=== PATIENT | female | born 1930 ===

== ENCOUNTER 2016-07-24 19:43 | Inpatient (IN) | payer OTHER ==
[~2016-07-24] VITALS: Ht 144.8 cm; Wt 51.3 kg
[2016-07-24 20:14] VITALS: BP 91/29
[2016-07-24 23:15] VITALS: BP 95/42
[2016-07-25] MEDS ORDERED: FURO20TA3 PO (01:16)
[2016-07-25] MEDS ORDERED: NYST1000 PO (01:16)
[2016-07-25] MEDS ORDERED: CLOT15CR4 TP (01:16)
[2016-07-25] MEDS ORDERED: ESCI10TA PO (01:16)
[2016-07-25] MEDS ORDERED: HYDR-2666 PO (01:16)
[2016-07-25] MEDS ORDERED: GABA-585 PO (01:16)
[2016-07-25] MEDS ORDERED: ACET325T9 PO (01:16)
[2016-07-25 03:14] VITALS: BP 98/49
[2016-07-25 07:00] VITALS: BP 93/47
[2016-07-25] MEDS ORDERED: IV NORMAL SALINE 1000ML BAG 1,000 ML IV ONE (08:45)
[2016-07-25] MEDS ORDERED: PIPERACILLIN/TAZOBACTAM 2.25 GM in IV NORMAL SALINE 50ML 50 ML IV ONE (08:45)
[2016-07-25] MEDS ORDERED: HYDROCODONE/APAP 5/325MG TABLET. PO PRN (08:45)
[2016-07-25] MEDS ORDERED: ACETAMINOPHEN 325 MG TABLET. PO PRN (08:45)
[2016-07-25] MEDS ORDERED: VANCOMYCIN PER PHARMACY MC PRN (09:00)
[2016-07-25] MEDS: CLOTRIMAZOLE 1% TOPICAL CREAM 15GM TUBE. TP SCH ×2 (09:00→20:56)
--- NOTE | 2016-07-25 09:00 | PDOC1 ---
History and Physical Date of Admission Date of Admission DATE: 07/25/16 TIME: 08:46 Identification/Chief Complaint Chief Complaint cellulitis Source Source: Caregiver, Chart review, Patient History of Present Illness History of Present Illness transfer from [place] for celllulitis to left upper chest and arm Niece has been present and assists with history. Pt lives at [facility], last 7 years painful redness to left arm and left chest, reports better this AM, Had prior HD, left arm AV fistula, has not been used in a long time. Vancomycin 1 gram IV given before transfer, Past Medical History Cardiovascular: CAD, CHF, HTN Pulmonary: Asthma, Bronchitis, COPD GI: GERD Heme/Onc: No pertinent hx Hepatobiliary: No pertinent hx Psych: Depression Musculoskeletal: low back pain ENT: No pertinent hx Renal/: Chronic renal insuff, Acute renal failure Endocrine: Diabetes Past Surgical History Past Surgical History: No pertinent history Family History Family History: No Significant Social History Smoke: Quit ALCOHOL: none Drugs: None Current Medications Current Medications Current Medications Acetaminophen (Tylenol) 325 mg PRN Q4HRS PRN PO pain; Start 07/25/16 at 08:45; Status UNV Clotrimazole (Lotrimin) 1 kizzy BID TP ; Start 07/25/16 at 09:00; Status UNV Escitalopram Oxalate (Lexapro) 10 mg DAILY PO ; Start 07/25/16 at 09:00; Status UNV Gabapentin (Neurontin) 100 mg TID PO ; Start 07/25/16 at 09:00; Status UNV Acetaminophen/ Hydrocodone Bitart (Lortab 5/325) 1 tab TID PRN PO PAIN; Start 07/25/16 at 08:45; Status UNV Nystatin 5 ml 5 ml QID PO ; Start 07/25/16 at 09:00; Status UNV Piperacillin Sod/ Tazobactam Sod 2.25 gm/Sodium Chloride 50 ml @ 100 mls/hr Q6HRS IV ; Start 07/25/16 at 12:00 Piperacillin Sod/ Tazobactam Sod/ Sodium Chloride (Zosyn/Iv Sodium Chloride 0.9 % 50ml) 50 ml @ 100 mls/hr 1X ONCE IV ; Start 07/25/16 at 08:45; Stop at 09:14 Active Scripts Active Reported Nystatin 100,000 Unit/1 Ml Oral.susp 5 Ml PO QID Hydrocodone-Apap 5-325 (Hydrocodone Bit/Acetaminophen) 1 Each Tablet 1 Tab PO TID PRN Clotrimazole 15 Gm Cream..g. 1 Kizzy TP BID Escitalopram Oxalate 10 Mg Tablet 1 Tab PO DAILY Gabapentin 100 Mg Capsule 100 Mg PO TID Furosemide 20 Mg Tablet 1 Tab PO DAILY Tylenol (Acetaminophen) 325 Mg Tablet 1 Tab PO PRN Q4HRS Allergies Allergies: Coded Allergies: No Known Drug Allergies (Unverified , 07/25/16) ROS General: YES: Chills, Fatigue, Malaise PSYCHOLOGICAL ROS: No: Anxiety, Behavioral Disorder, Concentration difficultie , Decreased libido, Depression, Disorientation, Hallucinations, Hostility, Irritablity, Memory difficulties, Mood Swings, Obsessive thoughts, Other, Physical abuse, Sexual abuse, Sleep disturbances, Suicidal ideation Eyes: No Blurry vision, No Decreased vision, No Double vision, No Dry eyes, No Excessive tearing, No Eye Pain, No Itchy Eyes, No Loss of vision, No Other, No Photophobia, No Scotomata, No Uses contacts, No Uses glasses HEENT: No: Epistaxis, Heacaches, Hearing change, Nasal congestion, Nasal discharge, Oral lesions, Other, Sinus pain, Sneezing, Snoring, Sore Throat, Tinnitus, Vertigo, Visual Changes, Vocal changes Respiratory: No: Cough, Hemoptysis, Orthopnea, Other, Pleuritic Pain, SOB with excertion, Shortness of breath, Sputum Changes, Stridor, Tachypnea, Wheezing Cardiovascular: No Chest Pain, No Edema, No Lt Headedness, No Orthopnea, No Other, No Palpitations, No Paroxysmal Noc. Dyspnea Gastrointestinal: Yes Nausea, No Abdominal Pain, No Constipation, No Diarrhea, No Hematochezia, No Melena, No Other, No Vomiting Genitourinary: No , No , No , No , No , No , No , No Discharge, No Dysuria, No Flank Pain, No Frequency, No Hematuria, No Incontinence, No Other, No Pain, No Retention, No Urgency Musculoskeletal: No Gait Disturbance, No Joint Pain, No Joint Stiffness, No Joint Swelling, No Muscle Pain, No Muscular Weakness, No Other, No Pain In:, No Swelling In: Neurological: No Behavorial Changes, No Bowel/Bladder ControlChng, No Confusion , No Dizziness, No Gait Disturbance, No Headaches, No Impaired Coord/balance, No Memory Loss, No Numbness/Tingling, No Other, No Seizures, No Speech Problems , No Tremors, No Visual Changes, No Weakness Skin: Yes Dry Skin, Yes Rash, Yes Skin Lesion Changes, No Acne, No Eczema, No Hair Changes, No Lumps, No Mole Changes, No Mottling, No Nail Changes, No Other, No Pruritus Physical Exam General: Alert, Oriented X3, mild distress HEENT: Atraumatic, EOMI Lungs: Normal air movement, Other (diminished, w/ rales) Heart: S1S2, RRR Abdomen: Normal bowel sounds, Soft Rectal Exam: not examined Extremities: No clubbing, No edema Skin: Other (redness, erythema to left chest wall to left arm, blanchable, ) Neuro: Other (mod good str. communicates well, I cannot understand, translated reasonably by Nerosio) Psych/Mental Status: Mental status NL, Mood NL Vitals Vitals Vital Signs Date Time Temp Pulse Resp B/P Pulse Ox O2 Delivery O2 Flow Rate FiO2 07/25/16 07:00 97.8 63 19 93/47 100 Nasal Cannula 3.0 97.8 Labs Labs WBC 12.8, Hgb 11.4, plt 211 BUN 26, Cr. 2,2m, Ca++ 8.6 Alb 2.9, K 5.0, Na 140, CL 104, C02 26 CRP 21.6 Laboratory Tests Test 07/24/16 21:11 07/25/16 07:48 Glucose (Fingerstick) 110mg/dL (70-99) 80mg/dL (70-99) Laboratory Tests Test 07/24/16 21:11 07/25/16 07:48 Glucose (Fingerstick) 110mg/dL (70-99) 80mg/dL (70-99) VTE Prophylaxis Ordered VTE Prophylaxis Devices: No VTE Pharmacological Prophylaxi: Yes Assessment/Plan Assessment/Plan cellulitis, + SIRS at [facility] ER with Leukocytosis, and T 102 Admit for sepsis ZOsyn given there, cont Q6, 2.25, then Pharm dosing, Cr. 2.2 there, recheck renal fxn now acute on chronic renal faiulre, vasomotor, consult renal IV fluid, stat labs now minimal hypoxia resp failure, respiratory failure, check P CXR now, low 02 documented 89% nebs, ABG 7.42/40/54 - weakness and debility, has lived at [facility] 7 years, family care was almost 10 years before that some mild dementia, communicates very well with Niece who is DPOA and presente for this exam Speech eval for swallow safety admit DNR confirmed VANESSA WARE MD Jul 25, 2016 09:00
[2016-07-25] MEDS: ESCITALOPRAM 10 MG TABLET. PO SCH (09:05)
[2016-07-25] MEDS: GABAPENTIN 100 MG CAPSULE. PO SCH ×3 (09:05→20:55)
[2016-07-25] MEDS: NYSTATIN 100,000 UNITS/ML 5 ML ORAL.SUSP. PO SCH ×4 (09:05→20:55)
[2016-07-25 09:09] LABS: BASO % 0 % (0-3); EOS % 0 % (0-3); HEMATOCRIT 33.7 % (36.0-47.0); HEMOGLOBIN 10.8 g/dL (12.0-15.5); LYMPH # 1.5 x10^3/uL (1.0-4.8); LYMPH % 14 % (24-48); MEAN CORPUSCULAR HEMOGLOBIN 33 pg (25-35); MEAN CORPUSCULAR HGB CONC 32 g/dL (31-37); MEAN CORPUSCULAR VOLUME 103 fL (79-100); MONO % 4 % (0-9); NEUT % 82 % (31-73); PLATELET COUNT 184 x10^3/uL (140-400); RED BLOOD COUNT 3.29 x10^6/uL (3.50-5.40); RED CELL DISTRIBUTION WIDTH 13.7 % (11.5-14.5); WHITE BLOOD COUNT 11.3 x10^3/uL (4.0-11.0)
[2016-07-25] MEDS ORDERED: VANCOMYCIN 1.25 GM in IV NORMAL SALINE 250ML 250 ML IV ONE (09:15)
[2016-07-25 09:33] LABS: CALCIUM 8.4 mg/dL (8.5-10.1); CREATININE 2.2 mg/dL (0.6-1.0); GFR 21.2; POTASSIUM 5.4 mmol/L (3.5-5.1)
[2016-07-25 09:36] LABS: ALBUMIN 2.4 g/dL (3.4-5.0); ALBUMIN/GLOBULIN RATIO 0.6 (1.0-1.7); TOTAL BILIRUBIN 0.5 mg/dL (0.2-1.0); TOTAL PROTEIN 6.5 g/dL (6.4-8.2)
--- NOTE | 2016-07-25 10:43 | PDOC2 ---
CONSULT Date of Consult Date of Consult DATE: 07/25/16 TIME: 10:42 Reason for Consult Reason for Consult: CKD IV/ v Referring Physician Referring Physician: Dr George Identification/Chief Complaint Chief Complaint fevers Problems: Source Source: Chart review, Patient History of Present Illness Reason for Visit: as dictated Past Medical History Cardiovascular: CAD, CHF, HTN Pulmonary: Asthma, Bronchitis, COPD GI: GERD Heme/Onc: No pertinent hx Hepatobiliary: No pertinent hx Psych: Depression Musculoskeletal: low back pain ENT: No pertinent hx Renal/: Chronic renal insuff, Acute renal failure Endocrine: Diabetes Past Surgical History Past Surgical History: No pertinent history Family History Family History: No Significant Social History Quit ALCOHOL: none Drugs: None Lives: Care Home Current Medications Current Medications Current Medications Acetaminophen (Tylenol) 325 mg PRN Q4HRS PRN PO pain; Start 07/25/16 at 08:45 Clotrimazole (Lotrimin) 1 kizzy BID TP Last administered on 07/25/16 09:00; Start 07/25/16 at 09:00 Escitalopram Oxalate (Lexapro) 10 mg DAILY PO Last administered on 07/25/16 09 :05; Start 07/25/16 at 09:00 Gabapentin (Neurontin) 100 mg TID PO Last administered on 07/25/16 09:05; Start 07/25/16 at 09:00 Acetaminophen/ Hydrocodone Bitart (Lortab 5/325) 1 tab PRN TID PRN PO PAIN MILD ; Start 07/25/16 at 08:45 Nystatin 5 ml 5 ml QID PO Last administered on 07/25/16 09:05; Start 07/25/16 at 09:00 Piperacillin Sod/ Tazobactam Sod 2.25 gm/Sodium Chloride 50 ml @ 100 mls/hr Q6HRS IV ; Start 07/25/16 at 12:00 Piperacillin Sod/ Tazobactam Sod 2.25 gm/Sodium Chloride 50 ml @ 100 mls/hr 1X ONCE IV Last administered on 07/25/16 09:06; Start 07/25/16 at 08:45; Stop 07/25/16 at 09:14; Status DC Sodium Chloride (Iv Sodium Chloride 0.9% 1000ml Bag) 1,000 ml @ 100 mls/hr 1X ONCE IV Last administered on 3/24/17at 08:45; Start 07/25/16 at 08:45; Stop at 18:44 Albuterol/ Ipratropium (Duoneb) 3 ml RTQID NEB ; Start 07/25/16 at 12:00 Vancomycin HCl 1 each 1 each PRN DAILY PRN MC SEE COMMENTS; Start 07/25/16 at 09:00 Vancomycin HCl/ Sodium Chloride (Iv Sodium Chloride 0.9% 250ml) 250 ml @ 166.667 mls/hr 1X ONCE IV Last administered on 07/25/16t 10:35; Start at 09:15; Stop 07/25/16 at 10:44 Active Scripts Active Reported Nystatin 100,000 Unit/1 Ml Oral.susp 5 Ml PO QID Hydrocodone-Apap 5-325 (Hydrocodone Bit/Acetaminophen) 1 Each Tablet 1 Tab PO TID PRN Clotrimazole 15 Gm Cream..g. 1 Kizzy TP BID Escitalopram Oxalate 10 Mg Tablet 1 Tab PO DAILY Gabapentin 100 Mg Capsule 100 Mg PO TID Furosemide 20 Mg Tablet 1 Tab PO DAILY Tylenol (Acetaminophen) 325 Mg Tablet 1 Tab PO PRN Q4HRS Allergies Allergies: Coded Allergies: No Known Drug Allergies (Unverified , 07/25/16) ROS Review of System Unable to get from pt. GEN: + Fevers no Chills Physical Exam Physical Exam General Appearance: Awake Alert Oriented x 1-2, ? Some underlying dmeentia In no Distress Eyes: VIsion Unchanged Conjunctiva Normal EN: No EN Drainage Mucous Memb. moist Neck: no JVD min JVP Supple no Thyromegaly CVS: S1 S2 + Murmur No Gallop No Rub no Edema Resp: no Rales no Rhonchi no Acc. Muscle use GI: BAS +ve NO Bruit Non Tender Non Distended : no CVA tenderness; no Suprapubic Tenderness SKIN: no visible petechial Rashes Breast Exam deferred; rash as described over chest wall Mu.Sk: dec ROM age related Muscle Atrophy Heme: Unable to palpate Obvious LAD no Splenomegaly NEURO: not co-operative with neuro exam Psych: ? Depressed no Active hallucination Vital Signs Vital Signs Date Time Temp Pulse Resp B/P Pulse Ox O2 Delivery O2 Flow Rate FiO2 07/25/16 07:00 97.8 63 19 93/47 100 Nasal Cannula 3.0 97.8 Assessment & Plan CKD IV - suspect she is stage V given dimunitive muscle mass. check 24-hr CrCl. Pt not interested in STEAM CONDITIONER OPERATOR. Current FLuid and E-lyte status does not necessitate emergent need for Dialysis. ^K - chronic Problem. May need valtessa / Ch Kayexalate dose as OP for same ( daughter says NH has a problem keeping it down) Anemia: check Iron, start Epogen Transfuse as needed. HypoTN: ? due to febrile illness. IVF as needed. hold Current BP meds HypoAlb - ? FTT due to underlying Uremia Discussed Plan of Care and prognosis etc. at length with family. Agree that she may not be the ideal candidate for STEAM CONDITIONER OPERATOR. Labs Labs Laboratory Tests Test 07/24/16 21:11 07/25/16 07:48 07/25/16 08:50 Glucose (Fingerstick) 110mg/dL (70-99) 80mg/dL (70-99) White Blood Count 11.3x10^3/uL (4.0-11.0) Red Blood Count 3.29x10^6/uL (3.50-5.40) Hemoglobin 10.8g/dL (12.0-15.5) Hematocrit 33.7% (36.0-47.0) Mean Corpuscular Volume 103fL (79-100) Mean Corpuscular Hemoglobin 33pg (25-35) Mean Corpuscular Hemoglobin Concent 32g/dL (31-37) Red Cell Distribution Width 13.7% (11.5-14.5) Platelet Count 184x10^3/uL (140-400) Neutrophils (%) (Auto) 82% (31-73) Lymphocytes (%) (Auto) 14% (24-48) Monocytes (%) (Auto) 4% (0-9) Eosinophils (%) (Auto) 0% (0-3) Basophils (%) (Auto) 0% (0-3) Neutrophils # (Auto) 9.2x10^3uL (1.8-7.7) Lymphocytes # (Auto) 1.5x10^3/uL (1.0-4.8) Monocytes # (Auto) 0.5x10^3/uL (0.0-1.1) Eosinophils # (Auto) 0.0x10^3/uL (0.0-0.7) Basophils # (Auto) 0.0x10^3/uL (0.0-0.2) Sodium Level 144mmol/L (136-145) Potassium Level 5.4mmol/L (3.5-5.1) Chloride Level 110mmol/L (98-107) Carbon Dioxide Level 26mmol/L (21-32) Anion Gap 8 (6-14) Blood Urea Nitrogen 32mg/dL (7-20) Creatinine 2.2mg/dL (0.6-1.0) Estimated GFR (Cockcroft-Gault) 21.2 BUN/Creatinine Ratio 15 (6-20) Glucose Level 104mg/dL (70-99) Calcium Level 8.4mg/dL (8.5-10.1) Total Bilirubin 0.5mg/dL (0.2-1.0) Aspartate Amino Transf (AST/SGOT) 26U/L (15-37) Alanine Aminotransferase (ALT/SGPT) 15U/L (14-59) Alkaline Phosphatase 83U/L (46-116) Total Protein 6.5g/dL (6.4-8.2) Albumin 2.4g/dL (3.4-5.0) Albumin/Globulin Ratio 0.6 (1.0-1.7) Random Vancomycin Level 11.6mcg/mL Laboratory Tests Test 07/24/16 21:11 07/25/16 07:48 07/25/16 08:50 Glucose (Fingerstick) 110mg/dL (70-99) 80mg/dL (70-99) White Blood Count 11.3x10^3/uL (4.0-11.0) Red Blood Count 3.29x10^6/uL (3.50-5.40) Hemoglobin 10.8g/dL (12.0-15.5) Hematocrit 33.7% (36.0-47.0) Mean Corpuscular Volume 103fL (79-100) Mean Corpuscular Hemoglobin 33pg (25-35) Mean Corpuscular Hemoglobin Concent 32g/dL (31-37) Red Cell Distribution Width 13.7% (11.5-14.5) Platelet Count 184x10^3/uL (140-400) Neutrophils (%) (Auto) 82% (31-73) Lymphocytes (%) (Auto) 14% (24-48) Monocytes (%) (Auto) 4% (0-9) Eosinophils (%) (Auto) 0% (0-3) Basophils (%) (Auto) 0% (0-3) Neutrophils # (Auto) 9.2x10^3uL (1.8-7.7) Lymphocytes # (Auto) 1.5x10^3/uL (1.0-4.8) Monocytes # (Auto) 0.5x10^3/uL (0.0-1.1) Eosinophils # (Auto) 0.0x10^3/uL (0.0-0.7) Basophils # (Auto) 0.0x10^3/uL (0.0-0.2) Sodium Level 144mmol/L (136-145) Potassium Level 5.4mmol/L (3.5-5.1) Chloride Level 110mmol/L (98-107) Carbon Dioxide Level 26mmol/L (21-32) Anion Gap 8 (6-14) Blood Urea Nitrogen 32mg/dL (7-20) Creatinine 2.2mg/dL (0.6-1.0) Estimated GFR (Cockcroft-Gault) 21.2 BUN/Creatinine Ratio 15 (6-20) Glucose Level 104mg/dL (70-99) Calcium Level 8.4mg/dL (8.5-10.1) Total Bilirubin 0.5mg/dL (0.2-1.0) Aspartate Amino Transf (AST/SGOT) 26U/L (15-37) Alanine Aminotransferase (ALT/SGPT) 15U/L (14-59) Alkaline Phosphatase 83U/L (46-116) Total Protein 6.5g/dL (6.4-8.2) Albumin 2.4g/dL (3.4-5.0) Albumin/Globulin Ratio 0.6 (1.0-1.7) Random Vancomycin Level 11.6mcg/mL ANI GARCIA MD Jul 25, 2016 10:43
[2016-07-25] MEDS ORDERED: MAGNESIUM SULFATE 2GM 50 ML IV PRN (10:45)
[2016-07-25] MEDS ORDERED: SODIUM POLYSTYRENE SULFONATE 15 GM/60 ML ORAL.SUSP. PO ONE (11:00)
--- NOTE | 2016-07-25 11:04 | RAD ---
Portable chest, 07/25/2016: History: Hypoxia Comparison is made to a study from 07/14/2012. The patient is moderately rotated to the left. The heart is mildly enlarged. There is calcific plaquing of the aorta. The pulmonary vascularity appears congested. There appears to be mild left basilar atelectasis/infiltrate. A known hiatal hernia is probably contributing to this opacity medially. Similar findings were present on the previous exam. No pleural fluid is evident. IMPRESSION: 1. Vascular congestion. 2. Mild left basilar atelectasis/infiltrate.
--- NOTE | 2016-07-25 11:07 | PDOC ---
Infectious Disease Note Vital Sign Vital Signs Vital Signs Date Time Temp Pulse Resp B/P Pulse Ox O2 Delivery O2 Flow Rate FiO2 07/25/16 07:00 97.8 63 19 93/47 100 Nasal Cannula 3.0 97.8 Labs Lab Laboratory Tests Test 07/24/16 21:11 07/25/16 07:48 07/25/16 08:50 07/25/16 10:25 Glucose (Fingerstick) 110mg/dL (70-99) 80mg/dL (70-99) 117mg/dL (70-99) White Blood Count 11.3x10^3/uL (4.0-11.0) Red Blood Count 3.29x10^6/uL (3.50-5.40) Hemoglobin 10.8g/dL (12.0-15.5) Hematocrit 33.7% (36.0-47.0) Mean Corpuscular Volume 103fL (79-100) Mean Corpuscular Hemoglobin 33pg (25-35) Mean Corpuscular Hemoglobin Concent 32g/dL (31-37) Red Cell Distribution Width 13.7% (11.5-14.5) Platelet Count 184x10^3/uL (140-400) Neutrophils (%) (Auto) 82% (31-73) Lymphocytes (%) (Auto) 14% (24-48) Monocytes (%) (Auto) 4% (0-9) Eosinophils (%) (Auto) 0% (0-3) Basophils (%) (Auto) 0% (0-3) Neutrophils # (Auto) 9.2x10^3uL (1.8-7.7) Lymphocytes # (Auto) 1.5x10^3/uL (1.0-4.8) Monocytes # (Auto) 0.5x10^3/uL (0.0-1.1) Eosinophils # (Auto) 0.0x10^3/uL (0.0-0.7) Basophils # (Auto) 0.0x10^3/uL (0.0-0.2) Sodium Level 144mmol/L (136-145) Potassium Level 5.4mmol/L (3.5-5.1) Chloride Level 110mmol/L (98-107) Carbon Dioxide Level 26mmol/L (21-32) Anion Gap 8 (6-14) Blood Urea Nitrogen 32mg/dL (7-20) Creatinine 2.2mg/dL (0.6-1.0) Estimated GFR (Cockcroft-Gault) 21.2 BUN/Creatinine Ratio 15 (6-20) Glucose Level 104mg/dL (70-99) Calcium Level 8.4mg/dL (8.5-10.1) Total Bilirubin 0.5mg/dL (0.2-1.0) Aspartate Amino Transf (AST/SGOT) 26U/L (15-37) Alanine Aminotransferase (ALT/SGPT) 15U/L (14-59) Alkaline Phosphatase 83U/L (46-116) Total Protein 6.5g/dL (6.4-8.2) Albumin 2.4g/dL (3.4-5.0) Albumin/Globulin Ratio 0.6 (1.0-1.7) Random Vancomycin Level 11.6mcg/mL Objective Assessment Fever Leukocytosis Chest wall cellulitis Yeast infection under breast Renal failure Debility and self care problem Plan Plan of Care cont zosyn d/c vanc add diflucan supportive care d/w family ROCAEL GARCIA MD Jul 25, 2016 11:07
[2016-07-25 11:10] VITALS: BP 104/37
[2016-07-25] MEDS: IPRATRPIUM/ALBUTEROL 0.5/2.5MG 3 ML NEBU. NEB SCH ×3 (11:21→20:21)
[2016-07-25 12:06] LABS: % SAT IRON 28 % (15-34); IRON,SERUM 38 ug/dL (50-170)
[2016-07-25] MEDS: FLUCONAZOLE 100 MG TABLET. PO SCH (12:18)
[2016-07-25] MEDS: PIPERACILLIN/TAZOBACTAM 2.25 GM in IV NORMAL SALINE 50ML 50 ML IV SCH ×3 (12:18→23:58)
[2016-07-25] MEDS ORDERED: AA 2.75%/CALCIUM/LYTES/D5W 2,000 ML IV SCH (14:30)
[2016-07-25 14:37] VITALS: BP 128/48
--- NOTE | 2016-07-25 14:50 | PDOC2 ---
GI CONSULT Reason For Consult: PEG HPI: HPI: History from chart, RN, COMPUTER FORENSICS EXAMINER, niece Jhoana who is DPOA, and pt (minimal history, h/ o dementia/aphasia). 85 y/o transferred from [facility] for cellulitis (right arm, breast), fevers, concern for sepsis. Followed by ID on IV atbx, also nephrology for CKD stage IV-V; 24 hour CrCl in process, pt not interested/not ideal candidate for USER EXPERIENCE LEAD. H/o dysphagia, coughing w/ eating, no teeth. Niece reports pt previously signed a consent at [facility] to continue eating a regular diet after she refused pureed foods. Around the same time was made DNR. Due to coughing w/ swallowing liquids noted by staff here, COMPUTER FORENSICS EXAMINER was consulted w/ bedside swallow eval c/w oropharyngeal dysphagia. Was made NPO w/ orders for PPN to start this afternoon. GI consulted re: PEG tube. H/o heartburn treated PRN at [facility]. Denies odynophagia, constipation, diarrhea, hematochezia, melena. Some abd discomfort today. No previous EGD or colonoscopy. No abd surgeries. Discussed PEG w/ pt, niece. Pt first indicates she is not interested in this. Niece indicates they have previously discussed to proceed w/ PEG and pt agrees to think about it. PMH: PMH: HTN, CHF, COPD, dysphagia, GERD, CKD previously on HD, DM, depression/anxiety, dementia, aphasia FH: Family History: No pertinent hx Social History: Smoke: Quit ALCOHOL: none Drugs: None ROS: GEN: +fevers HEENT: denies blurred vision, sore throat CV: denies chest pain RESP: +cough GI: Per HPI : denies hematuria, dysuria ENDO: denies weight changes NEURO: +dementia MSK: +weakness SKIN: RUE, breast redness, swelling VItals: Vitals: Vital Signs Date Time Temp Pulse Resp B/P Pulse Ox O2 Delivery O2 Flow Rate FiO2 07/25/16 11:22 95 Room Air 07/25/16 11:10 97.4 68 20 104/37 97.4 07/25/16 07:00 3.0 Labs: Labs: Laboratory Tests Test 07/24/16 21:11 07/25/16 07:48 07/25/16 08:50 07/25/16 10:25 Glucose (Fingerstick) 110mg/dL (70-99) 80mg/dL (70-99) 117mg/dL (70-99) White Blood Count 11.3x10^3/uL (4.0-11.0) Red Blood Count 3.29x10^6/uL (3.50-5.40) Hemoglobin 10.8g/dL (12.0-15.5) Hematocrit 33.7% (36.0-47.0) Mean Corpuscular Volume 103fL (79-100) Mean Corpuscular Hemoglobin 33pg (25-35) Mean Corpuscular Hemoglobin Concent 32g/dL (31-37) Red Cell Distribution Width 13.7% (11.5-14.5) Platelet Count 184x10^3/uL (140-400) Neutrophils (%) (Auto) 82% (31-73) Lymphocytes (%) (Auto) 14% (24-48) Monocytes (%) (Auto) 4% (0-9) Eosinophils (%) (Auto) 0% (0-3) Basophils (%) (Auto) 0% (0-3) Neutrophils # (Auto) 9.2x10^3uL (1.8-7.7) Lymphocytes # (Auto) 1.5x10^3/uL (1.0-4.8) Monocytes # (Auto) 0.5x10^3/uL (0.0-1.1) Eosinophils # (Auto) 0.0x10^3/uL (0.0-0.7) Basophils # (Auto) 0.0x10^3/uL (0.0-0.2) Sodium Level 144mmol/L (136-145) Potassium Level 5.4mmol/L (3.5-5.1) Chloride Level 110mmol/L (98-107) Carbon Dioxide Level 26mmol/L (21-32) Anion Gap 8 (6-14) Blood Urea Nitrogen 32mg/dL (7-20) Creatinine 2.2mg/dL (0.6-1.0) Estimated GFR (Cockcroft-Gault) 21.2 BUN/Creatinine Ratio 15 (6-20) Glucose Level 104mg/dL (70-99) Calcium Level 8.4mg/dL (8.5-10.1) Total Bilirubin 0.5mg/dL (0.2-1.0) Aspartate Amino Transf (AST/SGOT) 26U/L (15-37) Alanine Aminotransferase (ALT/SGPT) 15U/L (14-59) Alkaline Phosphatase 83U/L (46-116) Total Protein 6.5g/dL (6.4-8.2) Albumin 2.4g/dL (3.4-5.0) Albumin/Globulin Ratio 0.6 (1.0-1.7) Random Vancomycin Level 11.6mcg/mL Test 07/25/16 11:25 Reticulocyte Count (auto) 1.0% (0.5-2.5) Iron Level 38ug/dL (50-170) Total Iron Binding Capacity 136ug/dL (250-450) Iron Saturation 28% (15-34) Ferritin 142ng/mL (8-252) Allergies: Coded Allergies: No Known Drug Allergies (Unverified , 07/25/16) Medications: Current Medications Medications (Trade) Dose Ordered Sig/Kelly Route PRN Reason Start Time Stop Time Status Last Admin Dose Admin Clotrimazole (Lotrimin) 1 carol BID TP 07/25/16 09:00 07/25/16 09:00 Escitalopram Oxalate (Lexapro) 10 mg DAILY PO 07/25/16 09:00 07/25/16 09:05 Gabapentin (Neurontin) 100 mg TID PO 07/25/16 09:00 07/25/16 09:05 Nystatin 5 ml 5 ml QID PO 07/25/16 09:00 07/25/16 12:18 Piperacillin Sod/ Tazobactam Sod 2.25 gm/Sodium Chloride 50 ml @ 100 mls/hr Q6HRS IV 07/25/16 12:00 07/25/16 12:18 Piperacillin Sod/ Tazobactam Sod 2.25 gm/Sodium Chloride 50 ml @ 100 mls/hr 1X ONCE IV 07/25/16 08:45 07/25/16 09:14 DC 07/25/16 09:06 Sodium Chloride (Iv Sodium Chloride 0.9% 1000ml Bag) 1,000 ml @ 100 mls/hr 1X ONCE IV 07/25/16 08:45 07/25/16 18:44 07/25/16 08:45 Albuterol/ Ipratropium 3 ml 3 ml RTQID NEB 07/25/16 12:00 07/25/16 11:21 Vancomycin HCl/ Sodium Chloride (Iv Sodium Chloride 0.9% 250ml) 250 ml @ 166.667 mls/hr 1X ONCE IV 07/25/16 09:15 07/25/16 10:44 DC 07/25/16 10:35 Sodium Polystyrene Sulfonate (Kayexalate) 30 gm 1X ONCE PO 07/25/16 11:00 07/25/16 11:01 DC 07/25/16 12:19 Fluconazole (Diflucan) 200 mg DAILY PO 07/25/16 12:00 07/25/16 12:18 Imaging: Imaging: CXR 07/25/16 IMPRESSION: 1. Vascular congestion. 2. Mild left basilar atelectasis/infiltrate. PE: GEN: NAD, curled up in bed on right side HEENT: atraumatic, PERRL LUNGS: decreased, some coarseness, poor effort HEART: S1S2 ABD: NABS, S/ND/NT EXTREMITY: RUE edema SKIN: redness and warmth RUE, right breast NEURO/PSYCH: nods yes/no, non-verbal, drowsy A/P: A/P: Cellulitis -followed by ID, on atbx -WBC 11.3, fevers at [facility] CKD stage IV-V -not interested in USER EXPERIENCE LEAD, is DNR per H&P and niece Dysphagia -apparent history of this, coughing w/ eating -chose to continue regular diet at [facility], signed consent re: this -failed bedside swallow w/ COMPUTER FORENSICS EXAMINER today, made NPO, plans for PPN -GI consulted re: PEG, niece who is DPOA is interested Heartburn -occasional, treated PRN at [facility] CRC screen -no previous colonoscopy Anemia -- Discussion re: PEG w/ niece and pt, difficult to know how pt feels, niece/DPOA is interested, they will continue to discuss. Will review w/ Dr. Irizarry. CRISTINA LOMBARDI Jul 25, 2016 14:50
[2016-07-25 17:17] LABS: PREALBUMIN 11 mg/dL (9-32)
[2016-07-25 19:00] VITALS: BP 141/60
[2016-07-25 19:13] LABS: HEP A IGM ABDY Negative (Negative); HEP B SURFACE ABDY Non Reactive (.)
--- NOTE | 2016-07-25 19:25 | CONS ---
DATE OF CONSULTATION: 07/25/2016 PRIMARY PHYSICIAN: Dr. George. REASON FOR CONSULTATION: Renal insufficiency. HISTORY OF PRESENT ILLNESS: The patient is an 85-year-old female, who is known to have developed acute renal failure requiring dialysis in the past. She eventually had some amount of recovery to where she did not need further dialysis. This was in 2009 according to her daughter. She was last seen by Dr. Napier as an outpatient and was noted to have CKD stage 4 with baseline creatinine of about 2.5. Her daughter tells me they have had problems with keeping her potassium down at the [place] [facility]. She does have some dietary indiscretion, does not follow a renal diet. The patient has declined continuation of dialysis in the recent past. P.o. intake has been marginal. She was found to have a fever and hence transferred to [facility] from [facility] for the same. We were asked to see her for chronic renal insufficiency. She does have an AV fistula in place if need be. This does not appear to be mature enough for use. She has reiterated her stance of not pursuing dialysis if need arises. She has been on hospice in the past. ANI GARCIA MD DR: ADE/vandana JOB#: [id number] / [id number]
--- NOTE | 2016-07-25 20:02 | CONS ---
DATE OF CONSULTATION: 07/25/2016 REQUESTING PHYSICIAN: Dr. George. REASON FOR CONSULTATION: Chest wall cellulitis. HISTORY OF PRESENT ILLNESS: This is an 85-year-old female, who is a assisted resident, who was brought in because of chest wall cellulitis and had 103 fever at assisted. The patient had 102 fever at [facility], was found to have chest wall cellulitis, and was transferred here for further management. The patient is not much verbal. Family at the bedside and information was obtained through chart review and discussing with the family. No nausea, vomiting, diarrhea noted. The patient was given vancomycin and Zosyn. The patient is feeling better. PAST MEDICAL HISTORY: Positive for renal insufficiency. The patient at one point was on dialysis and she refused dialysis, kidney improved and she has been able to function still. The patient also has coronary artery disease, congestive heart failure, hypertension, COPD, gastroesophageal reflux disease. SOCIAL HISTORY: Negative for smoking, alcohol, illicit drug use. The patient is a assisted resident. REVIEW OF SYSTEMS: As per HPI. All other systems reviewed are negative. CURRENT MEDICATIONS: Reviewed. The patient is on vancomycin and Zosyn. PHYSICAL EXAMINATION: GENERAL: Alert female, not in any distress. VITAL SIGNS: Stable. Afebrile. HEENT: NAD NECK: Supple, no JVP, no lymphadenopathy. LUNGS: Clear. HEART: S1, S2 regular. ABDOMEN: Benign. EXTREMITIES: No edema or cyanosis. SKIN: The patient has extensive cellulitis of the chest wall going towards the right upper extremity. The patient also has significant yeast infection under the right breast and some on the left breast. NEUROLOGIC: The patient is alert, awake, not much verbal, and cannot walk or do anything. Wheelchair bound. LABORATORY DATA: White count is 11.3. BUN 32, creatinine 2.2. IMAGING: Chest x-ray: ____ pulmonary vascular congestion. May be retrocardiac infiltrate. IMPRESSION: 1. Chest wall cellulitis. 2. Yeast infection under the breast. 3. Fever. 4. Leukocytosis. 5. Renal insufficiency. 6. Chronic obstructive pulmonary disease. 7. Congestive heart failure. RECOMMENDATIONS: Would continue Zosyn, discontinue vancomycin, add Diflucan, supportive care. Discussion with family done at the bedside. Thank you very much Dr. George for giving me the opportunity to participate in this patient's care. GUSTAVO VELAZQUEZ MD DR: Gregg JOB#: [id number] / [id number]
[2016-07-25] MEDS ORDERED: DARBEPOETIN ALFA 60 MCG/0.3 ML DISP.SYRIN. SQ SCH (21:00)
--- NOTE | 2016-07-25 21:11 | EKG ---
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
[2016-07-25] MEDS: MORPHINE SULFATE 2 MG/ML DISP.SYRIN. IV PRN (21:29)
[2016-07-25 22:30] LABS: CKMB INDEX 1.3 % (0-4); CKMB MASS 1.8 ng/mL (0.0-3.6)
[2016-07-25 22:44] VITALS: BP 106/54
[2016-07-26] VITALS (7 sets, daily range): BP systolic 84–144; BP diastolic 33–71
[2016-07-26 04:21] LABS: PTH INTACT 70 pg/mL (15-65)
[2016-07-26 04:53] LABS: BASO # 0.1 x10^3/uL (0.0-0.2); BASO % 1 % (0-3); EOS % 0 % (0-3); HEMATOCRIT 31.5 % (36.0-47.0); HEMOGLOBIN 10.1 g/dL (12.0-15.5); LYMPH # 1.5 x10^3/uL (1.0-4.8); LYMPH % 15 % (24-48); MEAN CORPUSCULAR HEMOGLOBIN 33 pg (25-35); MEAN CORPUSCULAR HGB CONC 32 g/dL (31-37); MEAN CORPUSCULAR VOLUME 104 fL (79-100); MONO % 7 % (0-9); NEUT % 77 % (31-73); PLATELET COUNT 179 x10^3/uL (140-400); RED BLOOD COUNT 3.04 x10^6/uL (3.50-5.40); RED CELL DISTRIBUTION WIDTH 14.2 % (11.5-14.5); WHITE BLOOD COUNT 10.2 x10^3/uL (4.0-11.0)
[2016-07-26 05:32] LABS: ALBUMIN 2.3 g/dL (3.4-5.0); CALCIUM 8.9 mg/dL (8.5-10.1); CREATININE 2.2 mg/dL (0.6-1.0); GFR 21.2; PHOSPHORUS 3.1 mg/dL (2.6-4.7)
[2016-07-26 05:34] LABS: POTASSIUM 5.2 mmol/L (3.5-5.1)
[2016-07-26] MEDS: PIPERACILLIN/TAZOBACTAM 2.25 GM in IV NORMAL SALINE 50ML 50 ML IV SCH ×3 (06:38→17:40)
[2016-07-26] MEDS: PANTOPRAZOLE IV PUSH 40 MG VIAL. IVP SCH (07:30)
[2016-07-26] MEDS: IPRATRPIUM/ALBUTEROL 0.5/2.5MG 3 ML NEBU. NEB SCH ×4 (08:02→19:54)
[2016-07-26] MEDS: GABAPENTIN 100 MG CAPSULE. PO SCH ×3 (09:00→21:00)
[2016-07-26] MEDS: NYSTATIN 100,000 UNITS/ML 5 ML ORAL.SUSP. PO SCH ×4 (09:00→21:00)
[2016-07-26] MEDS: FLUCONAZOLE 100 MG TABLET. PO SCH (09:00)
[2016-07-26] MEDS: ESCITALOPRAM 10 MG TABLET. PO SCH (09:00)
[2016-07-26] MEDS: CLOTRIMAZOLE 1% TOPICAL CREAM 15GM TUBE. TP SCH ×2 (09:00→21:20)
--- NOTE | 2016-07-26 11:25 | PDOC ---
Infectious Disease Note Subjective Subjective + cough. O2 4LNC Denies pain No fever last 24 hours Vital Sign Vital Signs Vital Signs Date Time Temp Pulse Resp B/P Pulse Ox O2 Delivery O2 Flow Rate FiO2 07/26/16 08:05 94 Room Air 07/26/16 07:00 98.1 78 22 90/54 98.1 07/26/16 03:00 3.0 Physical Exam PHYSICAL EXAM GENERAL: [place] to name. HEENT: Oral cavity dry LUNGS: Upper airway congestion, cleared with cough, nonlabored HEART: S1S2 ABD: Soft, NT, BS present Cross EXT: No edema, no cyanosis RESORT MANAGER: Answers few questions, weak SKIN: Moist erythematous areas under both breasts R > L. Slight chest redness IV: ok Labs Lab Laboratory Tests Test 07/25/16 11:25 07/25/16 16:54 07/25/16 20:28 07/25/16 21:30 Reticulocyte Count (auto) 1.0% (0.5-2.5) Estimated GFR (Non- 21 (>59) Iron Level 38ug/dL (50-170) Total Iron Binding Capacity 136ug/dL (250-450) Iron Saturation 28% (15-34) Ferritin 142ng/mL (8-252) Prealbumin 11mg/dL (9-32) EGFR 24 (>59) PTH (Intact) Specimen Description Comment (.) Parathyroid Hormone (Intact) 70pg/mL (15-65) Calcium (PTH Intact) 8.4mg/dL (8.7-10.3) Creatinine (PTH Intact) 2.11mg/dL (0.57-1.00) Phosphorus (PTH Intact) 3.0mg/dL (2.5-4.5) Hepatitis A IgM Antibody Negative (Negative) Hepatitis B Surface Antigen Negative (Negative) Hepatitis B Surface Antibody Non reactive (.) Hepatitis B Core Total Antibody Negative (Negative) Hepatitis B Core IgM Antibody Negative (Negative) Hepatitis C Antibody <0.1s/co ratio (0.0-0.9) Glucose (Fingerstick) 145mg/dL (70-99) 114mg/dL (70-99) Creatine Kinase 141U/L (26-192) Creatine Kinase MB (Mass) 1.8ng/mL (0.0-3.6) Creatine Kinase MB Relative Index 1.3% (0-4) Troponin I Quantitative 0.056ng/mL (0.000-0.055) Test 07/26/16 04:00 07/26/16 07:56 White Blood Count 10.2x10^3/uL (4.0-11.0) Red Blood Count 3.04x10^6/uL (3.50-5.40) Hemoglobin 10.1g/dL (12.0-15.5) Hematocrit 31.5% (36.0-47.0) Mean Corpuscular Volume 104fL (79-100) Mean Corpuscular Hemoglobin 33pg (25-35) Mean Corpuscular Hemoglobin Concent 32g/dL (31-37) Red Cell Distribution Width 14.2% (11.5-14.5) Platelet Count 179x10^3/uL (140-400) Neutrophils (%) (Auto) 77% (31-73) Lymphocytes (%) (Auto) 15% (24-48) Monocytes (%) (Auto) 7% (0-9) Eosinophils (%) (Auto) 0% (0-3) Basophils (%) (Auto) 1% (0-3) Neutrophils # (Auto) 7.9x10^3uL (1.8-7.7) Lymphocytes # (Auto) 1.5x10^3/uL (1.0-4.8) Monocytes # (Auto) 0.7x10^3/uL (0.0-1.1) Eosinophils # (Auto) 0.0x10^3/uL (0.0-0.7) Basophils # (Auto) 0.1x10^3/uL (0.0-0.2) Sodium Level 142mmol/L (136-145) Potassium Level 5.2mmol/L (3.5-5.1) Chloride Level 108mmol/L (98-107) Carbon Dioxide Level 22mmol/L (21-32) Anion Gap 12 (6-14) Blood Urea Nitrogen 30mg/dL (7-20) Creatinine 2.2mg/dL (0.6-1.0) Estimated GFR (Cockcroft-Gault) 21.2 Glucose Level 120mg/dL (70-99) Calcium Level 8.9mg/dL (8.5-10.1) Phosphorus Level 3.1mg/dL (2.6-4.7) Magnesium Level 1.9mg/dL (1.8-2.4) Troponin I Quantitative 0.053ng/mL (0.000-0.055) Albumin 2.3g/dL (3.4-5.0) Glucose (Fingerstick) 90mg/dL (70-99) CXR 07/25 History: Hypoxia Comparison is made to a study from 07/14/2012. The patient is moderately rotated to the left. The heart is mildly enlarged. There is calcific plaquing of the aorta. The pulmonary vascularity appears congested. There appears to be mild left basilar atelectasis/infiltrate. A known hiatal hernia is probably contributing to this opacity medially. Similar findings were present on the previous exam. No pleural fluid is evident. IMPRESSION: 1. Vascular congestion. 2. Mild left basilar atelectasis/infiltrate. Objective Assessment Fever. better Leukocytosis. better Chest wall cellulitis, improving Yeast infection under breast Renal failure Debility and self care problem MRSA nares + Dysphagia Plan Plan of Care Zosyn and fluconazole supportive care d/w niece Patient seen and examined. Chart reviewed in detail. Case d/w DIRECTOR OF STATE.Agree with above plan MITZI MUKHERJEE APRN Jul 26, 2016 11:25 RUSSELL TURK MD Jul 26, 2016 16:09
[2016-07-26] MEDS ORDERED: ACETAMINOPHEN 325 MG SUPP.RECT PR PRN (12:45)
[2016-07-26] MEDS ORDERED: ONDANSETRON PF 4 MG/2 ML VIAL. IV PRN (12:45)
--- NOTE | 2016-07-26 12:45 | PDOC ---
PROGRESS NOTES Chief Complaint Chief Complaint left upper chest and arm cellulitis, + [facility] with Leukocytosis , and T 102 acute on CKD3. vasomotor mild hypoxia resp failure weakness and debility mild dementia acute metabolic encephalopathy dysphagia plan: 1. DNR, will get pat eval 2. check Head CT arm US to rule out dvt 3. PPN npo, PEG thursday? fu gi 4. fu with id, on zosyn , diflucan fu with renal, Cr stable for now dvt, gi ppx History of Present Illness History of Present Illness not talking, mild mumbling follow a little bit commands aaox0 Vitals Vitals Vital Signs Date Time Temp Pulse Resp B/P Pulse Ox O2 Delivery O2 Flow Rate FiO2 07/26/16 11:51 Room Air 07/26/16 11:32 98.0 84/49 98.0 07/26/16 08:05 94 07/26/16 07:00 78 22 07/26/16 03:00 3.0 Physical Exam General: Alert, Oriented X3, mild distress Heart: Regular rate, Normal S1 Lungs: Clear Abdomen: Normal bowel sounds, Soft Extremities: No clubbing, No edema Skin: Other (redness, erythema to left chest wall to left arm, blanchable, ) Labs LABS Laboratory Tests Test 07/25/16 16:54 07/25/16 20:28 07/25/16 21:30 07/26/16 04:00 Glucose (Fingerstick) 145mg/dL (70-99) 114mg/dL (70-99) Creatine Kinase 141U/L (26-192) Creatine Kinase MB (Mass) 1.8ng/mL (0.0-3.6) Creatine Kinase MB Relative Index 1.3% (0-4) Troponin I Quantitative 0.056ng/mL (0.000-0.055) 0.053ng/mL (0.000-0.055) White Blood Count 10.2x10^3/uL (4.0-11.0) Red Blood Count 3.04x10^6/uL (3.50-5.40) Hemoglobin 10.1g/dL (12.0-15.5) Hematocrit 31.5% (36.0-47.0) Mean Corpuscular Volume 104fL (79-100) Mean Corpuscular Hemoglobin 33pg (25-35) Mean Corpuscular Hemoglobin Concent 32g/dL (31-37) Red Cell Distribution Width 14.2% (11.5-14.5) Platelet Count 179x10^3/uL (140-400) Neutrophils (%) (Auto) 77% (31-73) Lymphocytes (%) (Auto) 15% (24-48) Monocytes (%) (Auto) 7% (0-9) Eosinophils (%) (Auto) 0% (0-3) Basophils (%) (Auto) 1% (0-3) Neutrophils # (Auto) 7.9x10^3uL (1.8-7.7) Lymphocytes # (Auto) 1.5x10^3/uL (1.0-4.8) Monocytes # (Auto) 0.7x10^3/uL (0.0-1.1) Eosinophils # (Auto) 0.0x10^3/uL (0.0-0.7) Basophils # (Auto) 0.1x10^3/uL (0.0-0.2) Sodium Level 142mmol/L (136-145) Potassium Level 5.2mmol/L (3.5-5.1) Chloride Level 108mmol/L (98-107) Carbon Dioxide Level 22mmol/L (21-32) Anion Gap 12 (6-14) Blood Urea Nitrogen 30mg/dL (7-20) Creatinine 2.2mg/dL (0.6-1.0) Estimated GFR (Cockcroft-Gault) 21.2 Glucose Level 120mg/dL (70-99) Calcium Level 8.9mg/dL (8.5-10.1) Phosphorus Level 3.1mg/dL (2.6-4.7) Magnesium Level 1.9mg/dL (1.8-2.4) Albumin 2.3g/dL (3.4-5.0) Test 07/26/16 07:56 07/26/16 11:16 07/26/16 11:30 Glucose (Fingerstick) 90mg/dL (70-99) 114mg/dL (70-99) Troponin I Quantitative 0.023ng/mL (0.000-0.055) Review of Systems Review of Systems no fever, chills, sob or chest pain Comment Review of Relevant I have reviewed the following items anne-marie (where applicable) has been applied. Labs Laboratory Tests Test 07/24/16 21:11 07/24/16 23:55 07/25/16 07:48 07/25/16 08:50 Glucose (Fingerstick) 110mg/dL (70-99) 80mg/dL (70-99) Nasal Screen MRSA (PCR) Positive (Negative) White Blood Count 11.3x10^3/uL (4.0-11.0) Red Blood Count 3.29x10^6/uL (3.50-5.40) Hemoglobin 10.8g/dL (12.0-15.5) Hematocrit 33.7% (36.0-47.0) Mean Corpuscular Volume 103fL (79-100) Mean Corpuscular Hemoglobin 33pg (25-35) Mean Corpuscular Hemoglobin Concent 32g/dL (31-37) Red Cell Distribution Width 13.7% (11.5-14.5) Platelet Count 184x10^3/uL (140-400) Neutrophils (%) (Auto) 82% (31-73) Lymphocytes (%) (Auto) 14% (24-48) Monocytes (%) (Auto) 4% (0-9) Eosinophils (%) (Auto) 0% (0-3) Basophils (%) (Auto) 0% (0-3) Neutrophils # (Auto) 9.2x10^3uL (1.8-7.7) Lymphocytes # (Auto) 1.5x10^3/uL (1.0-4.8) Monocytes # (Auto) 0.5x10^3/uL (0.0-1.1) Eosinophils # (Auto) 0.0x10^3/uL (0.0-0.7) Basophils # (Auto) 0.0x10^3/uL (0.0-0.2) Sodium Level 144mmol/L (136-145) Potassium Level 5.4mmol/L (3.5-5.1) Chloride Level 110mmol/L (98-107) Carbon Dioxide Level 26mmol/L (21-32) Anion Gap 8 (6-14) Blood Urea Nitrogen 32mg/dL (7-20) Creatinine 2.2mg/dL (0.6-1.0) Estimated GFR (Cockcroft-Gault) 21.2 BUN/Creatinine Ratio 15 (6-20) Glucose Level 104mg/dL (70-99) Hemoglobin A1c 5.6% (4.8-5.6) Calcium Level 8.4mg/dL (8.5-10.1) Total Bilirubin 0.5mg/dL (0.2-1.0) Aspartate Amino Transf (AST/SGOT) 26U/L (15-37) Alanine Aminotransferase (ALT/SGPT) 15U/L (14-59) Alkaline Phosphatase 83U/L (46-116) Total Protein 6.5g/dL (6.4-8.2) Albumin 2.4g/dL (3.4-5.0) Albumin/Globulin Ratio 0.6 (1.0-1.7) Random Vancomycin Level 11.6mcg/mL Test 07/25/16 10:25 07/25/16 11:25 07/25/16 16:54 07/25/16 20:28 Glucose (Fingerstick) 117mg/dL (70-99) 145mg/dL (70-99) 114mg/dL (70-99) Reticulocyte Count (auto) 1.0% (0.5-2.5) Estimated GFR (Non- 21 (>59) Iron Level 38ug/dL (50-170) Total Iron Binding Capacity 136ug/dL (250-450) Iron Saturation 28% (15-34) Ferritin 142ng/mL (8-252) Prealbumin 11mg/dL (9-32) EGFR 24 (>59) PTH (Intact) Specimen Description Comment (.) Parathyroid Hormone (Intact) 70pg/mL (15-65) Calcium (PTH Intact) 8.4mg/dL (8.7-10.3) Creatinine (PTH Intact) 2.11mg/dL (0.57-1.00) Phosphorus (PTH Intact) 3.0mg/dL (2.5-4.5) Hepatitis A IgM Antibody Negative (Negative) Hepatitis B Surface Antigen Negative (Negative) Hepatitis B Surface Antibody Non reactive (.) Hepatitis B Core Total Antibody Negative (Negative) Hepatitis B Core IgM Antibody Negative (Negative) Hepatitis C Antibody <0.1s/co ratio (0.0-0.9) Test 3/24/17 21:30 07/26/16 04:00 07/26/16 07:56 07/26/16 11:16 Creatine Kinase 141U/L (26-192) Creatine Kinase MB (Mass) 1.8ng/mL (0.0-3.6) Creatine Kinase MB Relative Index 1.3% (0-4) Troponin I Quantitative 0.056ng/mL (0.000-0.055) 0.053ng/mL (0.000-0.055) White Blood Count 10.2x10^3/uL (4.0-11.0) Red Blood Count 3.04x10^6/uL (3.50-5.40) Hemoglobin 10.1g/dL (12.0-15.5) Hematocrit 31.5% (36.0-47.0) Mean Corpuscular Volume 104fL (79-100) Mean Corpuscular Hemoglobin 33pg (25-35) Mean Corpuscular Hemoglobin Concent 32g/dL (31-37) Red Cell Distribution Width 14.2% (11.5-14.5) Platelet Count 179x10^3/uL (140-400) Neutrophils (%) (Auto) 77% (31-73) Lymphocytes (%) (Auto) 15% (24-48) Monocytes (%) (Auto) 7% (0-9) Eosinophils (%) (Auto) 0% (0-3) Basophils (%) (Auto) 1% (0-3) Neutrophils # (Auto) 7.9x10^3uL (1.8-7.7) Lymphocytes # (Auto) 1.5x10^3/uL (1.0-4.8) Monocytes # (Auto) 0.7x10^3/uL (0.0-1.1) Eosinophils # (Auto) 0.0x10^3/uL (0.0-0.7) Basophils # (Auto) 0.1x10^3/uL (0.0-0.2) Sodium Level 142mmol/L (136-145) Potassium Level 5.2mmol/L (3.5-5.1) Chloride Level 108mmol/L (98-107) Carbon Dioxide Level 22mmol/L (21-32) Anion Gap 12 (6-14) Blood Urea Nitrogen 30mg/dL (7-20) Creatinine 2.2mg/dL (0.6-1.0) Estimated GFR (Cockcroft-Gault) 21.2 Glucose Level 120mg/dL (70-99) Calcium Level 8.9mg/dL (8.5-10.1) Phosphorus Level 3.1mg/dL (2.6-4.7) Magnesium Level 1.9mg/dL (1.8-2.4) Albumin 2.3g/dL (3.4-5.0) Glucose (Fingerstick) 90mg/dL (70-99) 114mg/dL (70-99) Test 07/26/16 11:30 Troponin I Quantitative 0.023ng/mL (0.000-0.055) Laboratory Tests Test 07/25/16 16:54 07/25/16 20:28 07/25/16 21:30 07/26/16 04:00 Glucose (Fingerstick) 145mg/dL (70-99) 114mg/dL (70-99) Creatine Kinase 141U/L (26-192) Creatine Kinase MB (Mass) 1.8ng/mL (0.0-3.6) Creatine Kinase MB Relative Index 1.3% (0-4) Troponin I Quantitative 0.056ng/mL (0.000-0.055) 0.053ng/mL (0.000-0.055) White Blood Count 10.2x10^3/uL (4.0-11.0) Red Blood Count 3.04x10^6/uL (3.50-5.40) Hemoglobin 10.1g/dL (12.0-15.5) Hematocrit 31.5% (36.0-47.0) Mean Corpuscular Volume 104fL (79-100) Mean Corpuscular Hemoglobin 33pg (25-35) Mean Corpuscular Hemoglobin Concent 32g/dL (31-37) Red Cell Distribution Width 14.2% (11.5-14.5) Platelet Count 179x10^3/uL (140-400) Neutrophils (%) (Auto) 77% (31-73) Lymphocytes (%) (Auto) 15% (24-48) Monocytes (%) (Auto) 7% (0-9) Eosinophils (%) (Auto) 0% (0-3) Basophils (%) (Auto) 1% (0-3) Neutrophils # (Auto) 7.9x10^3uL (1.8-7.7) Lymphocytes # (Auto) 1.5x10^3/uL (1.0-4.8) Monocytes # (Auto) 0.7x10^3/uL (0.0-1.1) Eosinophils # (Auto) 0.0x10^3/uL (0.0-0.7) Basophils # (Auto) 0.1x10^3/uL (0.0-0.2) Sodium Level 142mmol/L (136-145) Potassium Level 5.2mmol/L (3.5-5.1) Chloride Level 108mmol/L (98-107) Carbon Dioxide Level 22mmol/L (21-32) Anion Gap 12 (6-14) Blood Urea Nitrogen 30mg/dL (7-20) Creatinine 2.2mg/dL (0.6-1.0) Estimated GFR (Cockcroft-Gault) 21.2 Glucose Level 120mg/dL (70-99) Calcium Level 8.9mg/dL (8.5-10.1) Phosphorus Level 3.1mg/dL (2.6-4.7) Magnesium Level 1.9mg/dL (1.8-2.4) Albumin 2.3g/dL (3.4-5.0) Test 07/26/16 07:56 07/26/16 11:16 07/26/16 11:30 Glucose (Fingerstick) 90mg/dL (70-99) 114mg/dL (70-99) Troponin I Quantitative 0.023ng/mL (0.000-0.055) Medications Current Medications Acetaminophen (Tylenol) 325 mg PRN Q4HRS PRN PO pain; Start 07/25/16 at 08:45 Clotrimazole (Lotrimin) 1 kizzy BID TP Last administered on 07/26/16 09:00; Start 07/25/16 at 09:00 Escitalopram Oxalate (Lexapro) 10 mg DAILY PO Last administered on 07/25/16 09 :05; Start 07/25/16 at 09:00 Gabapentin (Neurontin) 100 mg TID PO Last administered on 07/25/16 09:05; Start 07/25/16 at 09:00 Acetaminophen/ Hydrocodone Bitart (Lortab 5/325) 1 tab PRN TID PRN PO PAIN MILD ; Start 07/25/16 at 08:45 Nystatin 5 ml 5 ml QID PO Last administered on 07/26/16 09:00; Start 07/25/16 at 09:00 Piperacillin Sod/ Tazobactam Sod 2.25 gm/Sodium Chloride 50 ml @ 100 mls/hr Q6HRS IV Last administered on 07/26/16 06:38; Start 07/25/16 at 12:00 Piperacillin Sod/ Tazobactam Sod 2.25 gm/Sodium Chloride 50 ml @ 100 mls/hr 1X ONCE IV Last administered on 07/25/16 09:06; Start 07/25/16 at 08:45; Stop 07/25/16 at 09:14; Status DC Sodium Chloride (Iv Sodium Chloride 0.9% 1000ml Bag) 1,000 ml @ 100 mls/hr 1X ONCE IV Last administered on 07/25/16 08:45; Start 07/25/16 at 08:45; Stop at 18:44; Status DC Albuterol/ Ipratropium (Duoneb) 3 ml RTQID NEB Last administered on 07/26/16 11:50; Start 07/25/16 at 12:00 Vancomycin HCl 1 each 1 each PRN DAILY PRN MC SEE COMMENTS; Start 07/25/16 at 09:00; Stop 07/25/16 at 11:07; Status DC Vancomycin HCl 1.25 gm/Sodium Chloride 250 ml @ 166.667 mls/hr 1X ONCE IV Last administered on 07/25/16 10:35; Start 07/25/16 at 09:15; Stop 07/25/16 at 10:44; Status DC Magnesium Sulfate/ Dextrose (Magnesium Sulfate PREMIX 2GM) 50 ml @ 25 mls/hr PRN DAILY PRN IV for Mag < 1.7 on am labs; Start 07/25/16 at 10:45 Sodium Polystyrene Sulfonate (Kayexalate) 30 gm 1X ONCE PO Last administered on 07/25/16 12:19; Start 07/25/16 at 11:00; Stop 07/25/16 at 11:01; Status DC Darbepoetin Jose (Aranesp) 60 mcg WEEKLYHS SQ Last administered on 07/25/16 20 :55; Start 07/25/16 at 21:00 Fluconazole 200 mg 200 mg DAILY PO Last administered on 07/25/16 12:18; Start 07/25/16 at 12:00 Amino Acids/ Electrolytes (Clinimix E 2.75%-5% Solution) 2,000 ml @ 80 mls/hr Q24H IV Last administered on 07/25/16 14:30; Start 07/25/16 at 14:30 Pantoprazole Sodium (Protonix Vial) 40 mg DAILYAC IVP Last administered on 07/26 07:30; Start 07/26/16 at 07:30 Morphine Sulfate 1 mg PRN Q4HRS PRN IV PAIN Last administered on 07/25/16 21: 29; Start 07/25/16 at 21:30 Active Scripts Active Reported Nystatin 100,000 Unit/1 Ml Oral.susp 5 Ml PO QID Hydrocodone-Apap 5-325 (Hydrocodone Bit/Acetaminophen) 1 Each Tablet 1 Tab PO TID PRN Clotrimazole 15 Gm Cream..g. 1 Kizzy TP BID Escitalopram Oxalate 10 Mg Tablet 1 Tab PO DAILY Gabapentin 100 Mg Capsule 100 Mg PO TID Furosemide 20 Mg Tablet 1 Tab PO DAILY Tylenol (Acetaminophen) 325 Mg Tablet 1 Tab PO PRN Q4HRS Vitals/I & O Vital Sign - Last 24 Hours 07/25/16 07/25/16 07/25/16 07/25/16 14:37 15:37 19:00 20:22 Temp 98.2 98.0 98.2 98.0 Pulse 86 83 Resp 22 22 B/P 128/48 141/60 Pulse Ox 90 94 90 90 O2 Delivery Room Air Room Air Room Air Room Air 07/25/16 07/25/16 07/25/16 07/26/16 20:55 21:29 22:44 03:00 Temp 98.8 96.7 98.8 96.7 Pulse 95 69 Resp 20 20 20 B/P 106/54 123/63 Pulse Ox 93 93 O2 Delivery Room Air Room Air Nasal Cannula Nasal Cannula O2 Flow Rate 3.0 3.0 07/26/16 07/26/16 07/26/16 07/26/16 07:00 08:05 11:32 11:51 Temp 98.1 98.0 98.1 98.0 Pulse 78 Resp 22 B/P 90/54 84/49 Pulse Ox 97 94 O2 Delivery Room Air Room Air Room Air Intake and Output 07/25/16 07/25/16 07/26/16 15:00 23:00 07:00 Intake Total 240 ml 360 ml 1961 ml Output Total 300 ml 200 ml 1100 ml Balance -60 ml 160 ml 861 ml ARYA HARDEN MD Jul 26, 2016 12:45
--- NOTE | 2016-07-26 12:46 | RAD ---
Indication swelling. Grayscale color Doppler and spectral imaging was performed. The examination was targeted to the veins of the left upper extremity. The left internal jugular vein appeared patent. The subclavian and axillary veins were patent. No thrombus was seen. The brachial and basilic veins appeared unremarkable. The radial and ulnar veins were not seen. A small amount of clot was seen in the cephalic vein in the upper arm, in the area of the shoulder. IMPRESSION: No evidence of deep venous thrombosis in the left upper extremity. Small amount of clot seen in the cephalic vein compatible with superficial thrombophlebitis
[2016-07-26] MEDS: MORPHINE SULFATE 2 MG/ML DISP.SYRIN. IV PRN ×2 (13:19→23:27)
--- NOTE | 2016-07-26 14:32 | PDOC2 ---
CONSULT Date of Consult Date of Consult DATE: 07/26/16 TIME: 14:17 Reason for Consult Reason for Consult: CHF Referring Physician Referring Physician: Dr. George Identification/Chief Complaint Chief Complaint Fever History of Present Illness Reason for Visit: This patient is an 85-year-old lady that at this time is a very poor historian and is barely able to communicate vocally. She has a known history of coronary artery disease and an ischemic cardiomyopathy. The patient has been living in a longterm for several years and used to be on dialysis for a period of time but this was stopped at the patient's request. The history is obtained from the patient's niece and she is the DPOA. She states that the patient was supposed to be hospice care in the longterm and is a DNR/DNI. She does not want dialysis. The patient became febrile and developed areas of cellulitis over the arm and the chest and was transferred to [facility] and then here. She previously had a dialysis shunt in that arm. At this time the patient complains of pains but is not able to tell me where she is hurting. Past Medical History Cardiovascular: CAD, CHF, HTN Pulmonary: Asthma, Bronchitis, COPD GI: GERD Heme/Onc: No pertinent hx Hepatobiliary: No pertinent hx Psych: Depression Musculoskeletal: low back pain ENT: No pertinent hx Renal/: Chronic renal insuff, Acute renal failure Endocrine: Diabetes Past Surgical History Past Surgical History: No pertinent history Family History Family History: No Significant Social History Quit ALCOHOL: none Drugs: None [facility] Current Medications Current Medications Current Medications Acetaminophen (Tylenol) 325 mg PRN Q4HRS PRN PO pain; Start 07/25/16 at 08:45 Clotrimazole (Lotrimin) 1 kizzy BID TP Last administered on 07/26/16 09:00; Start 07/25/16 at 09:00 Escitalopram Oxalate (Lexapro) 10 mg DAILY PO Last administered on 07/25/16 09 :05; Start 07/25/16 at 09:00 Gabapentin (Neurontin) 100 mg TID PO Last administered on 07/25/16 09:05; Start 07/25/16 at 09:00 Acetaminophen/ Hydrocodone Bitart (Lortab 5/325) 1 tab PRN TID PRN PO PAIN MILD ; Start 07/25/16 at 08:45 Nystatin 5 ml 5 ml QID PO Last administered on 07/26/16 13:26; Start 07/25/16 at 09:00 Piperacillin Sod/ Tazobactam Sod 2.25 gm/Sodium Chloride 50 ml @ 100 mls/hr Q6HRS IV Last administered on 07/26/16 13:26; Start 07/25/16 at 12:00 Piperacillin Sod/ Tazobactam Sod 2.25 gm/Sodium Chloride 50 ml @ 100 mls/hr 1X ONCE IV Last administered on 07/25/16 09:06; Start 07/25/16 at 08:45; Stop 07/25/16 at 09:14; Status DC Sodium Chloride (Iv Sodium Chloride 0.9% 1000ml Bag) 1,000 ml @ 100 mls/hr 1X ONCE IV Last administered on 07/25/16 08:45; Start 07/25/16 at 08:45; Stop at 18:44; Status DC Albuterol/ Ipratropium (Duoneb) 3 ml RTQID NEB Last administered on 07/26/16 11:50; Start 07/25/16 at 12:00 Vancomycin HCl 1 each 1 each PRN DAILY PRN MC SEE COMMENTS; Start 07/25/16 at 09:00; Stop 07/25/16 at 11:07; Status DC Vancomycin HCl 1.25 gm/Sodium Chloride 250 ml @ 166.667 mls/hr 1X ONCE IV Last administered on 07/25/16 10:35; Start 07/25/16 at 09:15; Stop 07/25/16 at 10:44; Status DC Magnesium Sulfate/ Dextrose (Magnesium Sulfate PREMIX 2GM) 50 ml @ 25 mls/hr PRN DAILY PRN IV for Mag < 1.7 on am labs; Start 07/25/16 at 10:45 Sodium Polystyrene Sulfonate (Kayexalate) 30 gm 1X ONCE PO Last administered on 07/25/16 12:19; Start 07/25/16 at 11:00; Stop 07/25/16 at 11:01; Status DC Darbepoetin Jose (Aranesp) 60 mcg WEEKLYHS SQ Last administered on 07/25/16 20 :55; Start 07/25/16 at 21:00 Fluconazole 200 mg 200 mg DAILY PO Last administered on 07/25/16 12:18; Start 07/25/16 at 12:00 Amino Acids/ Electrolytes (Clinimix E 2.75%-5% Solution) 2,000 ml @ 80 mls/hr Q24H IV Last administered on 07/25/16 14:30; Start 07/25/16 at 14:30 Pantoprazole Sodium (Protonix Vial) 40 mg DAILYAC IVP Last administered on 07/26 07:30; Start 07/26/16 at 07:30 Morphine Sulfate 1 mg PRN Q4HRS PRN IV PAIN Last administered on 07/26/16 13: 19; Start 07/25/16 at 21:30 Ondansetron HCl (Zofran) 4 mg PRN Q6HRS PRN IV NAUSEA/VOMITING; Start 07/26/16 at 12:45 Acetaminophen (Tylenol) 325 mg PRN Q6HRS PRN TX FEVER; Start 07/26/16 at 12:45 Active Scripts Active Reported Nystatin 100,000 Unit/1 Ml Oral.susp 5 Ml PO QID Hydrocodone-Apap 5-325 (Hydrocodone Bit/Acetaminophen) 1 Each Tablet 1 Tab PO TID PRN Clotrimazole 15 Gm Cream..g. 1 Kizzy TP BID Escitalopram Oxalate 10 Mg Tablet 1 Tab PO DAILY Gabapentin 100 Mg Capsule 100 Mg PO TID Furosemide 20 Mg Tablet 1 Tab PO DAILY Tylenol (Acetaminophen) 325 Mg Tablet 1 Tab PO PRN Q4HRS Allergies Allergies: Coded Allergies: No Known Drug Allergies (Unverified , 07/25/16) Physical Exam Physical Exam The patient appears to be in mild distress secondary to pain as best as I can see. The patient's niece was present in the room. The patient complains and moans when touched anywhere and does not want to be moved. H EENT full extraocular protuberant, oral mucosa well-hydrated. Neck difficult to evaluate the JVD with the patient lying on her side and not wanting to be raised to any significant degree. Lungs no wheezing, some crackles. Poor air movement. Heart regular rate and rhythm S1-S2 no S3 no S4. Abdomen is soft bowel sounds are present. Extremities no significant edema of the lower extremities. Left upper extremity with a lot of edema as well as lymphedema and areas of redness with warmth that extend in to the chest. Vitals VITALS Vital Signs Date Time Temp Pulse Resp B/P Pulse Ox O2 Delivery O2 Flow Rate FiO2 07/26/16 13:58 71 17 144/47 95 Room Air 07/26/16 11:32 98.0 98.0 07/26/16 03:00 3.0 Labs Labs Laboratory Tests Test 07/24/16 21:11 07/24/16 23:55 07/25/16 07:48 07/25/16 08:50 Glucose (Fingerstick) 110mg/dL (70-99) 80mg/dL (70-99) Nasal Screen MRSA (PCR) Positive (Negative) White Blood Count 11.3x10^3/uL (4.0-11.0) Red Blood Count 3.29x10^6/uL (3.50-5.40) Hemoglobin 10.8g/dL (12.0-15.5) Hematocrit 33.7% (36.0-47.0) Mean Corpuscular Volume 103fL (79-100) Mean Corpuscular Hemoglobin 33pg (25-35) Mean Corpuscular Hemoglobin Concent 32g/dL (31-37) Red Cell Distribution Width 13.7% (11.5-14.5) Platelet Count 184x10^3/uL (140-400) Neutrophils (%) (Auto) 82% (31-73) Lymphocytes (%) (Auto) 14% (24-48) Monocytes (%) (Auto) 4% (0-9) Eosinophils (%) (Auto) 0% (0-3) Basophils (%) (Auto) 0% (0-3) Neutrophils # (Auto) 9.2x10^3uL (1.8-7.7) Lymphocytes # (Auto) 1.5x10^3/uL (1.0-4.8) Monocytes # (Auto) 0.5x10^3/uL (0.0-1.1) Eosinophils # (Auto) 0.0x10^3/uL (0.0-0.7) Basophils # (Auto) 0.0x10^3/uL (0.0-0.2) Sodium Level 144mmol/L (136-145) Potassium Level 5.4mmol/L (3.5-5.1) Chloride Level 110mmol/L (98-107) Carbon Dioxide Level 26mmol/L (21-32) Anion Gap 8 (6-14) Blood Urea Nitrogen 32mg/dL (7-20) Creatinine 2.2mg/dL (0.6-1.0) Estimated GFR (Cockcroft-Gault) 21.2 BUN/Creatinine Ratio 15 (6-20) Glucose Level 104mg/dL (70-99) Hemoglobin A1c 5.6% (4.8-5.6) Calcium Level 8.4mg/dL (8.5-10.1) Total Bilirubin 0.5mg/dL (0.2-1.0) Aspartate Amino Transf (AST/SGOT) 26U/L (15-37) Alanine Aminotransferase (ALT/SGPT) 15U/L (14-59) Alkaline Phosphatase 83U/L (46-116) Total Protein 6.5g/dL (6.4-8.2) Albumin 2.4g/dL (3.4-5.0) Albumin/Globulin Ratio 0.6 (1.0-1.7) Random Vancomycin Level 11.6mcg/mL Test 07/25/16 10:25 07/25/16 11:25 07/25/16 16:54 07/25/16 20:28 Glucose (Fingerstick) 117mg/dL (70-99) 145mg/dL (70-99) 114mg/dL (70-99) Reticulocyte Count (auto) 1.0% (0.5-2.5) Estimated GFR (Non- 21 (>59) Iron Level 38ug/dL (50-170) Total Iron Binding Capacity 136ug/dL (250-450) Iron Saturation 28% (15-34) Ferritin 142ng/mL (8-252) Prealbumin 11mg/dL (9-32) EGFR 24 (>59) PTH (Intact) Specimen Description Comment (.) Parathyroid Hormone (Intact) 70pg/mL (15-65) Calcium (PTH Intact) 8.4mg/dL (8.7-10.3) Creatinine (PTH Intact) 2.11mg/dL (0.57-1.00) Phosphorus (PTH Intact) 3.0mg/dL (2.5-4.5) Hepatitis A IgM Antibody Negative (Negative) Hepatitis B Surface Antigen Negative (Negative) Hepatitis B Surface Antibody Non reactive (.) Hepatitis B Core Total Antibody Negative (Negative) Hepatitis B Core IgM Antibody Negative (Negative) Hepatitis C Antibody <0.1s/co ratio (0.0-0.9) Test 07/25/16 21:30 07/26/16 04:00 07/26/16 07:56 07/26/16 11:16 Creatine Kinase 141U/L (26-192) Creatine Kinase MB (Mass) 1.8ng/mL (0.0-3.6) Creatine Kinase MB Relative Index 1.3% (0-4) Troponin I Quantitative 0.056ng/mL (0.000-0.055) 0.053ng/mL (0.000-0.055) White Blood Count 10.2x10^3/uL (4.0-11.0) Red Blood Count 3.04x10^6/uL (3.50-5.40) Hemoglobin 10.1g/dL (12.0-15.5) Hematocrit 31.5% (36.0-47.0) Mean Corpuscular Volume 104fL (79-100) Mean Corpuscular Hemoglobin 33pg (25-35) Mean Corpuscular Hemoglobin Concent 32g/dL (31-37) Red Cell Distribution Width 14.2% (11.5-14.5) Platelet Count 179x10^3/uL (140-400) Neutrophils (%) (Auto) 77% (31-73) Lymphocytes (%) (Auto) 15% (24-48) Monocytes (%) (Auto) 7% (0-9) Eosinophils (%) (Auto) 0% (0-3) Basophils (%) (Auto) 1% (0-3) Neutrophils # (Auto) 7.9x10^3uL (1.8-7.7) Lymphocytes # (Auto) 1.5x10^3/uL (1.0-4.8) Monocytes # (Auto) 0.7x10^3/uL (0.0-1.1) Eosinophils # (Auto) 0.0x10^3/uL (0.0-0.7) Basophils # (Auto) 0.1x10^3/uL (0.0-0.2) Sodium Level 142mmol/L (136-145) Potassium Level 5.2mmol/L (3.5-5.1) Chloride Level 108mmol/L (98-107) Carbon Dioxide Level 22mmol/L (21-32) Anion Gap 12 (6-14) Blood Urea Nitrogen 30mg/dL (7-20) Creatinine 2.2mg/dL (0.6-1.0) Estimated GFR (Cockcroft-Gault) 21.2 Glucose Level 120mg/dL (70-99) Calcium Level 8.9mg/dL (8.5-10.1) Phosphorus Level 3.1mg/dL (2.6-4.7) Magnesium Level 1.9mg/dL (1.8-2.4) Albumin 2.3g/dL (3.4-5.0) Glucose (Fingerstick) 90mg/dL (70-99) 114mg/dL (70-99) Test 07/26/16 11:30 Troponin I Quantitative 0.023ng/mL (0.000-0.055) Laboratory Tests Test 07/25/16 16:54 07/25/16 20:28 07/25/16 21:30 07/26/16 04:00 Glucose (Fingerstick) 145mg/dL (70-99) 114mg/dL (70-99) Creatine Kinase 141U/L (26-192) Creatine Kinase MB (Mass) 1.8ng/mL (0.0-3.6) Creatine Kinase MB Relative Index 1.3% (0-4) Troponin I Quantitative 0.056ng/mL (0.000-0.055) 0.053ng/mL (0.000-0.055) White Blood Count 10.2x10^3/uL (4.0-11.0) Red Blood Count 3.04x10^6/uL (3.50-5.40) Hemoglobin 10.1g/dL (12.0-15.5) Hematocrit 31.5% (36.0-47.0) Mean Corpuscular Volume 104fL (79-100) Mean Corpuscular Hemoglobin 33pg (25-35) Mean Corpuscular Hemoglobin Concent 32g/dL (31-37) Red Cell Distribution Width 14.2% (11.5-14.5) Platelet Count 179x10^3/uL (140-400) Neutrophils (%) (Auto) 77% (31-73) Lymphocytes (%) (Auto) 15% (24-48) Monocytes (%) (Auto) 7% (0-9) Eosinophils (%) (Auto) 0% (0-3) Basophils (%) (Auto) 1% (0-3) Neutrophils # (Auto) 7.9x10^3uL (1.8-7.7) Lymphocytes # (Auto) 1.5x10^3/uL (1.0-4.8) Monocytes # (Auto) 0.7x10^3/uL (0.0-1.1) Eosinophils # (Auto) 0.0x10^3/uL (0.0-0.7) Basophils # (Auto) 0.1x10^3/uL (0.0-0.2) Sodium Level 142mmol/L (136-145) Potassium Level 5.2mmol/L (3.5-5.1) Chloride Level 108mmol/L (98-107) Carbon Dioxide Level 22mmol/L (21-32) Anion Gap 12 (6-14) Blood Urea Nitrogen 30mg/dL (7-20) Creatinine 2.2mg/dL (0.6-1.0) Estimated GFR (Cockcroft-Gault) 21.2 Glucose Level 120mg/dL (70-99) Calcium Level 8.9mg/dL (8.5-10.1) Phosphorus Level 3.1mg/dL (2.6-4.7) Magnesium Level 1.9mg/dL (1.8-2.4) Albumin 2.3g/dL (3.4-5.0) Test 07/26/16 07:56 07/26/16 11:16 07/26/16 11:30 Glucose (Fingerstick) 90mg/dL (70-99) 114mg/dL (70-99) Troponin I Quantitative 0.023ng/mL (0.000-0.055) Assessment/Plan Assessment/Plan This patient comes in with sepsis secondary to an apparent cellulitis. She has multiple problems including coronary artery disease, ischemic cardiomyopathy, COPD, chronic renal failure and diabetes. The patient is a DNR/DNI and has been with hospice care. I agree with present plan. Thank you very much for asking me to participate in the care of this patient JENNIFER ZEPEDA MD Jul 26, 2016 14:32
[2016-07-26] MEDS ORDERED: AA 4.25%/CALCIUM/LYTES/D5W 1,000 ML IV SCH (21:37)
[2016-07-27] MEDS: PIPERACILLIN/TAZOBACTAM 2.25 GM in IV NORMAL SALINE 50ML 50 ML IV SCH ×5 (00:25→23:35)
[2016-07-27 03:20] VITALS: BP 121/72
[2016-07-27] MEDS: MORPHINE SULFATE 2 MG/ML DISP.SYRIN. IV PRN ×2 (05:17→09:56)
[2016-07-27 05:28] LABS: BASO % 0 % (0-3); EOS % 5 % (0-3); HEMATOCRIT 27.8 % (36.0-47.0); HEMOGLOBIN 8.9 g/dL (12.0-15.5); LYMPH # 1.3 x10^3/uL (1.0-4.8); LYMPH % 17 % (24-48); MEAN CORPUSCULAR HEMOGLOBIN 34 pg (25-35); MEAN CORPUSCULAR HGB CONC 32 g/dL (31-37); MEAN CORPUSCULAR VOLUME 105 fL (79-100); MONO % 7 % (0-9); NEUT % 72 % (31-73); PLATELET COUNT 148 x10^3/uL (140-400); RED BLOOD COUNT 2.66 x10^6/uL (3.50-5.40); RED CELL DISTRIBUTION WIDTH 13.6 % (11.5-14.5); WHITE BLOOD COUNT 7.9 x10^3/uL (4.0-11.0)
[2016-07-27] MEDS: PANTOPRAZOLE IV PUSH 40 MG VIAL. IVP SCH (06:19)
[2016-07-27 07:00] VITALS: BP 155/63
[2016-07-27 08:20] LABS: ALBUMIN 2.1 g/dL (3.4-5.0); CALCIUM 8.8 mg/dL (8.5-10.1); CREATININE 2.1 mg/dL (0.6-1.0); GFR 22.3; PHOSPHORUS 4.6 mg/dL (2.6-4.7)
[2016-07-27] MEDS: NYSTATIN 100,000 UNITS/ML 5 ML ORAL.SUSP. PO SCH ×4 (08:20→20:58)
[2016-07-27] MEDS: CLOTRIMAZOLE 1% TOPICAL CREAM 15GM TUBE. TP SCH ×2 (08:21→20:58)
[2016-07-27 08:28] LABS: POTASSIUM 5.9 mmol/L (3.5-5.1)
[2016-07-27] MEDS: FLUCONAZOLE 100 MG TABLET. PO SCH (09:00)
[2016-07-27] MEDS: GABAPENTIN 100 MG CAPSULE. PO SCH ×3 (09:00→20:58)
[2016-07-27] MEDS: ESCITALOPRAM 10 MG TABLET. PO SCH (09:00)
[2016-07-27] MEDS ORDERED: INSULIN REGULAR 100 UNIT/ML 10ML VIAL. IV ONE (09:30)
[2016-07-27] MEDS ORDERED: DEXTROSE 50% 25 GM / 50ML DISP.SYRIN. IV ONE (09:30)
[2016-07-27] MEDS: IPRATRPIUM/ALBUTEROL 0.5/2.5MG 3 ML NEBU. NEB SCH ×4 (09:30→19:53)
--- NOTE | 2016-07-27 09:40 | PDOC ---
Infectious Disease Note Subjective Subjective No fever Vital Sign Vital Signs Vital Signs Date Time Temp Pulse Resp B/P Pulse Ox O2 Delivery O2 Flow Rate FiO2 07/27/16 09:32 97 Nasal Cannula 2.0 07/27/16 05:47 20 07/27/16 03:20 98.2 66 121/72 98.2 Physical Exam PHYSICAL EXAM GENERAL: Arouses to name. HEENT: Oral cavity dry LUNGS: Improved aeration, less pper airway congestion, nonlabored HEART: S1S2 ABD: Soft, NT, BS present Cross EXT: Trace edema. No cyanosis FORECLOSURE SPECIALIST: Answers few questions, weak SKIN: Moist erythematous areas under both breasts R > L. chest redness faded IV: ok Labs Lab Laboratory Tests Test 07/26/16 11:16 07/26/16 11:30 07/26/16 16:36 07/26/16 20:36 Glucose (Fingerstick) 114mg/dL (70-99) 133mg/dL (70-99) 105mg/dL (70-99) Troponin I Quantitative 0.023ng/mL (0.000-0.055) Test 07/27/16 04:50 07/27/16 07:25 07/27/16 09:16 White Blood Count 7.9x10^3/uL (4.0-11.0) Red Blood Count 2.66x10^6/uL (3.50-5.40) Hemoglobin 8.9g/dL (12.0-15.5) Hematocrit 27.8% (36.0-47.0) Mean Corpuscular Volume 105fL (79-100) Mean Corpuscular Hemoglobin 34pg (25-35) Mean Corpuscular Hemoglobin Concent 32g/dL (31-37) Red Cell Distribution Width 13.6% (11.5-14.5) Platelet Count 148x10^3/uL (140-400) Neutrophils (%) (Auto) 72% (31-73) Lymphocytes (%) (Auto) 17% (24-48) Monocytes (%) (Auto) 7% (0-9) Eosinophils (%) (Auto) 5% (0-3) Basophils (%) (Auto) 0% (0-3) Neutrophils # (Auto) 5.7x10^3uL (1.8-7.7) Lymphocytes # (Auto) 1.3x10^3/uL (1.0-4.8) Monocytes # (Auto) 0.5x10^3/uL (0.0-1.1) Eosinophils # (Auto) 0.4x10^3/uL (0.0-0.7) Basophils # (Auto) 0.0x10^3/uL (0.0-0.2) Magnesium Level 2.5mg/dL (1.8-2.4) Sodium Level 139mmol/L (136-145) Potassium Level 5.9mmol/L (3.5-5.1) Chloride Level 107mmol/L (98-107) Carbon Dioxide Level 22mmol/L (21-32) Anion Gap 10 (6-14) Blood Urea Nitrogen 38mg/dL (7-20) Creatinine 2.1mg/dL (0.6-1.0) Estimated GFR (Cockcroft-Gault) 22.3 Glucose Level 107mg/dL (70-99) Calcium Level 8.8mg/dL (8.5-10.1) Phosphorus Level 4.6mg/dL (2.6-4.7) Albumin 2.1g/dL (3.4-5.0) Glucose (Fingerstick) 85mg/dL (70-99) IMPRESSION: No evidence of deep venous thrombosis in the left upper extremity. Small amount of clot seen in the cephalic vein compatible with superficial thrombophlebitis Objective Assessment Fever. better Leukocytosis. better Chest wall cellulitis, improving Yeast infection under breast Renal failure Debility and self care problem MRSA nares + Dysphagia LUE superficial thrombophlebitis Plan Plan of Care Zosyn and fluconazole Head CT pending supportive care d/w niece Patient seen and examined. Chart reviewed. Case discussed with PROFESSIONAL DEVELOPMENT MANAGER. CT result viewed. Agree with above plan. Head CT with no acute findings MITZI MUKHERJEE APRN Jul 27, 2016 09:40 RUSSELL TURK MD Jul 27, 2016 15:58
[2016-07-27] MEDS: IV DEXTROSE 5% - 0.9 % NACL 1,000 ML IV SCH (09:57)
--- NOTE | 2016-07-27 10:01 | RAD ---
Indication change in mental status. Noncontrast images of the head were obtained. No prior imaging of the head is available. The study is slightly limited by motion. A definite calvarial abnormality is not seen. The visualized paranasal sinuses appear normal. No subdural or epidural hematoma is seen. No mass or midline shift is apparent. There is no hemorrhage. Acute intracranial finding is not seen. IMPRESSION: No acute finding apparent in the head PQRS Compliance Statement: One or more of the following individualized dose reduction techniques were utilized for this examination: 1. Automated exposure control 2. Adjustment of the mA and/or kV according to patient size 3. Use of iterative reconstruction technique
--- NOTE | 2016-07-27 10:46 | RAD ---
Indication shortness of breath. Unresponsive patient. A single view of the chest was obtained and is compared to a study 2 days previously. Heart and pulmonary vessels are similar. There is now a small right pleural effusion not seen previously. There has been no additional significant change. IMPRESSION: Apart from interval development of a small right pleural effusion there has not been a significant change. Pulmonary infiltrates persist and appear similar
[2016-07-27 11:00] VITALS: BP 132/56
[2016-07-27] MEDS ORDERED: FUROSEMIDE 20 MG/2 ML VIAL IVP ONE (12:00)
--- NOTE | 2016-07-27 12:01 | PDOC ---
PROGRESS NOTES Chief Complaint Chief Complaint left upper chest and arm cellulitis, + SIRS at [facility] ER with Leukocytosis , and T 102 acute on CKD3. vasomotor mild hypoxia resp failure weakness and debility mild dementia acute metabolic encephalopathy dysphagia acute resp failure 2/2 mild fluid overloaded plan: 1. DNR, will get pat eval 2. check Head CT, neg. arm US ruled out dvt 3. dc PPN, change to d5+ NS 60cc/h. NPO 4. fu with id, on zosyn , diflucan fu with renal, Cr stable for now dvt, gi ppx regular insulin 10u +d50 iv, for high K talked to niece for 10min, pt even ate regular diet knowing her choked with food. would refuse tube feeding. Was in hospice before, PAT consult for hospice will not do NGT feeding for now Check CXR, lasix 20mg iv x1. on NC now History of Present Illness History of Present Illness not talking, mild mumbling, hard to understand, as per niece at bedside, pt has speech problem since born, she had 3months HD 2006. in SNF, pt cont eat regular diet altho knows shes chokes. refused feeding tube follow a little bit commands aaox0 higher K desat, no sob tho Vitals Vitals Vital Signs Date Time Temp Pulse Resp B/P Pulse Ox O2 Delivery O2 Flow Rate FiO2 07/27/16 09:56 97 Room Air 2.0 07/27/16 05:47 20 07/27/16 03:20 98.2 66 121/72 98.2 Physical Exam General: Alert, Oriented X3, mild distress Heart: Regular rate, Normal S1 Lungs: Crackles (bl mild) Abdomen: Normal bowel sounds, Soft Extremities: No clubbing, No edema Skin: Other (redness, erythema to left chest wall to left arm, blanchable, ) Labs LABS Laboratory Tests Test 07/26/16 16:36 07/26/16 20:36 07/27/16 04:50 07/27/16 07:25 Glucose (Fingerstick) 133mg/dL (70-99) 105mg/dL (70-99) White Blood Count 7.9x10^3/uL (4.0-11.0) Red Blood Count 2.66x10^6/uL (3.50-5.40) Hemoglobin 8.9g/dL (12.0-15.5) Hematocrit 27.8% (36.0-47.0) Mean Corpuscular Volume 105fL (79-100) Mean Corpuscular Hemoglobin 34pg (25-35) Mean Corpuscular Hemoglobin Concent 32g/dL (31-37) Red Cell Distribution Width 13.6% (11.5-14.5) Platelet Count 148x10^3/uL (140-400) Neutrophils (%) (Auto) 72% (31-73) Lymphocytes (%) (Auto) 17% (24-48) Monocytes (%) (Auto) 7% (0-9) Eosinophils (%) (Auto) 5% (0-3) Basophils (%) (Auto) 0% (0-3) Neutrophils # (Auto) 5.7x10^3uL (1.8-7.7) Lymphocytes # (Auto) 1.3x10^3/uL (1.0-4.8) Monocytes # (Auto) 0.5x10^3/uL (0.0-1.1) Eosinophils # (Auto) 0.4x10^3/uL (0.0-0.7) Basophils # (Auto) 0.0x10^3/uL (0.0-0.2) Magnesium Level 2.5mg/dL (1.8-2.4) Sodium Level 139mmol/L (136-145) Potassium Level 5.9mmol/L (3.5-5.1) Chloride Level 107mmol/L (98-107) Carbon Dioxide Level 22mmol/L (21-32) Anion Gap 10 (6-14) Blood Urea Nitrogen 38mg/dL (7-20) Creatinine 2.1mg/dL (0.6-1.0) Estimated GFR (Cockcroft-Gault) 22.3 Glucose Level 107mg/dL (70-99) Calcium Level 8.8mg/dL (8.5-10.1) Phosphorus Level 4.6mg/dL (2.6-4.7) Albumin 2.1g/dL (3.4-5.0) Test 07/27/16 09:16 07/27/16 10:03 Glucose (Fingerstick) 85mg/dL (70-99) 86mg/dL (70-99) Review of Systems Review of Systems no fever, chills, sob or chest pain Comment Review of Relevant I have reviewed the following items anne-marie (where applicable) has been applied. Labs Laboratory Tests Test 07/25/16 16:54 07/25/16 20:28 07/25/16 21:30 07/26/16 04:00 Glucose (Fingerstick) 145mg/dL (70-99) 114mg/dL (70-99) Creatine Kinase 141U/L (26-192) Creatine Kinase MB (Mass) 1.8ng/mL (0.0-3.6) Creatine Kinase MB Relative Index 1.3% (0-4) Troponin I Quantitative 0.056ng/mL (0.000-0.055) 0.053ng/mL (0.000-0.055) White Blood Count 10.2x10^3/uL (4.0-11.0) Red Blood Count 3.04x10^6/uL (3.50-5.40) Hemoglobin 10.1g/dL (12.0-15.5) Hematocrit 31.5% (36.0-47.0) Mean Corpuscular Volume 104fL (79-100) Mean Corpuscular Hemoglobin 33pg (25-35) Mean Corpuscular Hemoglobin Concent 32g/dL (31-37) Red Cell Distribution Width 14.2% (11.5-14.5) Platelet Count 179x10^3/uL (140-400) Neutrophils (%) (Auto) 77% (31-73) Lymphocytes (%) (Auto) 15% (24-48) Monocytes (%) (Auto) 7% (0-9) Eosinophils (%) (Auto) 0% (0-3) Basophils (%) (Auto) 1% (0-3) Neutrophils # (Auto) 7.9x10^3uL (1.8-7.7) Lymphocytes # (Auto) 1.5x10^3/uL (1.0-4.8) Monocytes # (Auto) 0.7x10^3/uL (0.0-1.1) Eosinophils # (Auto) 0.0x10^3/uL (0.0-0.7) Basophils # (Auto) 0.1x10^3/uL (0.0-0.2) Sodium Level 142mmol/L (136-145) Potassium Level 5.2mmol/L (3.5-5.1) Chloride Level 108mmol/L (98-107) Carbon Dioxide Level 22mmol/L (21-32) Anion Gap 12 (6-14) Blood Urea Nitrogen 30mg/dL (7-20) Creatinine 2.2mg/dL (0.6-1.0) Estimated GFR (Cockcroft-Gault) 21.2 Glucose Level 120mg/dL (70-99) Calcium Level 8.9mg/dL (8.5-10.1) Phosphorus Level 3.1mg/dL (2.6-4.7) Magnesium Level 1.9mg/dL (1.8-2.4) Albumin 2.3g/dL (3.4-5.0) Test 07/26/16 07:56 07/26/16 11:16 07/26/16 11:30 07/26/16 16:36 Glucose (Fingerstick) 90mg/dL (70-99) 114mg/dL (70-99) 133mg/dL (70-99) Troponin I Quantitative 0.023ng/mL (0.000-0.055) Test 07/26/16 20:36 07/27/16 04:50 07/27/16 07:25 07/27/16 09:16 Glucose (Fingerstick) 105mg/dL (70-99) 85mg/dL (70-99) White Blood Count 7.9x10^3/uL (4.0-11.0) Red Blood Count 2.66x10^6/uL (3.50-5.40) Hemoglobin 8.9g/dL (12.0-15.5) Hematocrit 27.8% (36.0-47.0) Mean Corpuscular Volume 105fL (79-100) Mean Corpuscular Hemoglobin 34pg (25-35) Mean Corpuscular Hemoglobin Concent 32g/dL (31-37) Red Cell Distribution Width 13.6% (11.5-14.5) Platelet Count 148x10^3/uL (140-400) Neutrophils (%) (Auto) 72% (31-73) Lymphocytes (%) (Auto) 17% (24-48) Monocytes (%) (Auto) 7% (0-9) Eosinophils (%) (Auto) 5% (0-3) Basophils (%) (Auto) 0% (0-3) Neutrophils # (Auto) 5.7x10^3uL (1.8-7.7) Lymphocytes # (Auto) 1.3x10^3/uL (1.0-4.8) Monocytes # (Auto) 0.5x10^3/uL (0.0-1.1) Eosinophils # (Auto) 0.4x10^3/uL (0.0-0.7) Basophils # (Auto) 0.0x10^3/uL (0.0-0.2) Magnesium Level 2.5mg/dL (1.8-2.4) Sodium Level 139mmol/L (136-145) Potassium Level 5.9mmol/L (3.5-5.1) Chloride Level 107mmol/L (98-107) Carbon Dioxide Level 22mmol/L (21-32) Anion Gap 10 (6-14) Blood Urea Nitrogen 38mg/dL (7-20) Creatinine 2.1mg/dL (0.6-1.0) Estimated GFR (Cockcroft-Gault) 22.3 Glucose Level 107mg/dL (70-99) Calcium Level 8.8mg/dL (8.5-10.1) Phosphorus Level 4.6mg/dL (2.6-4.7) Albumin 2.1g/dL (3.4-5.0) Test 07/27/16 10:03 Glucose (Fingerstick) 86mg/dL (70-99) Laboratory Tests Test 07/26/16 16:36 07/26/16 20:36 07/27/16 04:50 07/27/16 07:25 Glucose (Fingerstick) 133mg/dL (70-99) 105mg/dL (70-99) White Blood Count 7.9x10^3/uL (4.0-11.0) Red Blood Count 2.66x10^6/uL (3.50-5.40) Hemoglobin 8.9g/dL (12.0-15.5) Hematocrit 27.8% (36.0-47.0) Mean Corpuscular Volume 105fL (79-100) Mean Corpuscular Hemoglobin 34pg (25-35) Mean Corpuscular Hemoglobin Concent 32g/dL (31-37) Red Cell Distribution Width 13.6% (11.5-14.5) Platelet Count 148x10^3/uL (140-400) Neutrophils (%) (Auto) 72% (31-73) Lymphocytes (%) (Auto) 17% (24-48) Monocytes (%) (Auto) 7% (0-9) Eosinophils (%) (Auto) 5% (0-3) Basophils (%) (Auto) 0% (0-3) Neutrophils # (Auto) 5.7x10^3uL (1.8-7.7) Lymphocytes # (Auto) 1.3x10^3/uL (1.0-4.8) Monocytes # (Auto) 0.5x10^3/uL (0.0-1.1) Eosinophils # (Auto) 0.4x10^3/uL (0.0-0.7) Basophils # (Auto) 0.0x10^3/uL (0.0-0.2) Magnesium Level 2.5mg/dL (1.8-2.4) Sodium Level 139mmol/L (136-145) Potassium Level 5.9mmol/L (3.5-5.1) Chloride Level 107mmol/L (98-107) Carbon Dioxide Level 22mmol/L (21-32) Anion Gap 10 (6-14) Blood Urea Nitrogen 38mg/dL (7-20) Creatinine 2.1mg/dL (0.6-1.0) Estimated GFR (Cockcroft-Gault) 22.3 Glucose Level 107mg/dL (70-99) Calcium Level 8.8mg/dL (8.5-10.1) Phosphorus Level 4.6mg/dL (2.6-4.7) Albumin 2.1g/dL (3.4-5.0) Test 07/27/16 09:16 07/27/16 10:03 Glucose (Fingerstick) 85mg/dL (70-99) 86mg/dL (70-99) Medications Current Medications Acetaminophen (Tylenol) 325 mg PRN Q4HRS PRN PO pain; Start 07/25/16 at 08:45 Clotrimazole (Lotrimin) 1 kizzy BID TP Last administered on 07/27/16 08:21; Start 07/25/16 at 09:00 Escitalopram Oxalate (Lexapro) 10 mg DAILY PO Last administered on 07/25/16 09 :05; Start 07/25/16 at 09:00 Gabapentin (Neurontin) 100 mg TID PO Last administered on 07/25/16 09:05; Start 07/25/16 at 09:00 Acetaminophen/ Hydrocodone Bitart (Lortab 5/325) 1 tab PRN TID PRN PO PAIN MILD ; Start 07/25/16 at 08:45 Nystatin 5 ml 5 ml QID PO Last administered on 07/27/16 08:20; Start 07/25/16 at 09:00 Piperacillin Sod/ Tazobactam Sod 2.25 gm/Sodium Chloride 50 ml @ 100 mls/hr Q6HRS IV Last administered on 07/27/16 06:19; Start 07/25/16 at 12:00 Piperacillin Sod/ Tazobactam Sod 2.25 gm/Sodium Chloride 50 ml @ 100 mls/hr 1X ONCE IV Last administered on 07/25/16 09:06; Start 07/25/16 at 08:45; Stop 07/25/16 at 09:14; Status DC Sodium Chloride (Iv Sodium Chloride 0.9% 1000ml Bag) 1,000 ml @ 100 mls/hr 1X ONCE IV Last administered on 07/25/16 08:45; Start 07/25/16 at 08:45; Stop at 18:44; Status DC Albuterol/ Ipratropium (Duoneb) 3 ml RTQID NEB Last administered on 07/27/16 09:30; Start 07/25/16 at 12:00 Vancomycin HCl 1 each 1 each PRN DAILY PRN MC SEE COMMENTS; Start 07/25/16 at 09:00; Stop 07/25/16 at 11:07; Status DC Vancomycin HCl 1.25 gm/Sodium Chloride 250 ml @ 166.667 mls/hr 1X ONCE IV Last administered on 07/25/16 10:35; Start 07/25/16 at 09:15; Stop 07/25/16 at 10:44; Status DC Magnesium Sulfate/ Dextrose (Magnesium Sulfate PREMIX 2GM) 50 ml @ 25 mls/hr PRN DAILY PRN IV for Mag < 1.7 on am labs; Start 07/25/16 at 10:45 Sodium Polystyrene Sulfonate (Kayexalate) 30 gm 1X ONCE PO Last administered on 07/25/16 12:19; Start 07/25/16 at 11:00; Stop 07/25/16 at 11:01; Status DC Darbepoetin Jose (Aranesp) 60 mcg [id number] SQ Last administered on 07/25/16 20 :55; Start 07/25/16 at 21:00 Fluconazole 200 mg 200 mg DAILY PO Last administered on 07/25/16 12:18; Start 07/25/16 at 12:00 Amino Acids/ Electrolytes (Clinimix E 2.75%-5% Solution) 2,000 ml @ 80 mls/hr Q24H IV Last administered on 07/25/16 14:30; Start 07/25/16 at 14:30; Stop at 21:37; Status DC Pantoprazole Sodium (Protonix Vial) 40 mg DAILYAC IVP Last administered on 07/27 06:19; Start 07/26/16 at 07:30 Morphine Sulfate 1 mg PRN Q4HRS PRN IV PAIN Last administered on 07/27/16 09: 56; Start 07/25/16 at 21:30 Ondansetron HCl (Zofran) 4 mg PRN Q6HRS PRN IV NAUSEA/VOMITING; Start 07/26/16 at 12:45 Acetaminophen 325 mg 325 mg PRN Q6HRS PRN MN FEVER; Start 07/26/16 at 12:45 Amino Acids/ Electrolytes/ Dextrose 1,000 ml @ 80 mls/hr [id number] IV Last administered on 07/26/16 22:23; Start 07/26/16 at 21:37; Stop 07/27/16 at 09:31 ; Status DC Dextrose/Sodium Chloride (Iv D5% - NS) 1,000 ml @ 75 mls/hr [id number] IV Last administered on 07/27/16 09:57; Start 07/27/16 at 09:30 Insulin Human Regular (Novolin R Vial) 10 unit 1X ONCE IV Last administered on 07/27/16 10:55; Start 07/27/16 at 09:30; Stop 07/27/16 at 09:32; Status DC Dextrose 25 gm 1X ONCE IV Last administered on 07/27/16 10:47; Start at 09:30; Stop 07/27/16 at 09:33; Status DC Active Scripts Active Reported Nystatin 100,000 Unit/1 Ml Oral.susp 5 Ml PO QID Hydrocodone-Apap 5-325 (Hydrocodone Bit/Acetaminophen) 1 Each Tablet 1 Tab PO TID PRN Clotrimazole 15 Gm Cream..g. 1 Kizzy TP BID Escitalopram Oxalate 10 Mg Tablet 1 Tab PO DAILY Gabapentin 100 Mg Capsule 100 Mg PO TID Furosemide 20 Mg Tablet 1 Tab PO DAILY Tylenol (Acetaminophen) 325 Mg Tablet 1 Tab PO PRN Q4HRS Vitals/I & O Vital Sign - Last 24 Hours 07/26/16 07/26/16 07/26/16 07/26/16 13:19 13:58 15:00 16:49 Temp 98.0 98.0 Pulse 71 71 Resp 17 17 17 B/P 144/47 144/47 Pulse Ox 99 95 95 O2 Delivery Room Air Room Air Room Air 07/26/16 07/26/16 07/26/16 07/26/16 19:00 19:55 20:00 23:00 Temp 97.7 98.1 97.7 98.1 Pulse 65 70 Resp 20 20 B/P 115/33 143/71 Pulse Ox 95 98 O2 Delivery Nasal Cannula Room Air Room Air Room Air 07/26/16 07/27/16 07/27/16 07/27/16 23:27 03:20 05:17 05:47 Temp 98.2 98.2 Pulse 66 Resp 18 20 18 20 B/P 121/72 Pulse Ox 98 95 95 95 O2 Delivery Room Air Nasal Cannula Room Air Room Air O2 Flow Rate 3.0 07/27/16 07/27/16 09:32 09:56 Pulse Ox 97 97 O2 Delivery Nasal Cannula Room Air O2 Flow Rate 2.0 2.0 Intake and Output 07/26/16 07/26/16 07/27/16 15:00 23:00 07:00 Intake Total 1457 ml 50 ml Output Total 300 ml 700 ml Balance 1157 ml -650 ml ARYA HARDEN MD Jul 27, 2016 12:01
[2016-07-27] MEDS ORDERED: SODIUM POLYSTYRENE SULFONATE 15 GM/60 ML ORAL.SUSP. PO ONE (12:15)
[2016-07-27 13:15] LABS: PROTEIN 24 HR UR 245.7 mg/24 hr (30.0-150.0)
[2016-07-27 13:15] LABS: TOTAL SERUM CREATININE 2.2 mg/dL (0.57-1.00)
[2016-07-27 15:00] VITALS: BP 109/43
[2016-07-27 19:00] VITALS: BP 105/50
--- NOTE | 2016-07-27 21:39 | PDOC ---
Provider Note Provider Note Provider Note RENAL F/U : ERI S : Very weak and frail. No new c/o. O : Doing better/stable. VSS Afebrile. Frail. Neck : Supple. Lungs : Non labored. CVS : RRR ABD : Benign. Ext : Trace edema. Labs, I/Os reviewed. A/P : ARF : ATN. Cr stable. HYPERKALEMIA : NPO due to aspiration issues. IVF. CKD IV/V : No HD per pt wishes. Prognosis guarded. Supportive care. ? palliative care. ALLEN HWANG MD Jul 27, 2016 21:39
[2016-07-27 23:00] VITALS: BP 97/37
[2016-07-28] MEDS: IV DEXTROSE 5% - 0.9 % NACL 1,000 ML IV SCH (00:38)
[2016-07-28 03:06] VITALS: BP 97/43
[2016-07-28 05:52] LABS: BASO % 1 % (0-3); EOS % 5 % (0-3); HEMATOCRIT 31.8 % (36.0-47.0); HEMOGLOBIN 10.3 g/dL (12.0-15.5); LYMPH # 1.6 x10^3/uL (1.0-4.8); LYMPH % 20 % (24-48); MEAN CORPUSCULAR HEMOGLOBIN 33 pg (25-35); MEAN CORPUSCULAR HGB CONC 33 g/dL (31-37); MEAN CORPUSCULAR VOLUME 102 fL (79-100); MONO % 8 % (0-9); NEUT % 66 % (31-73); PLATELET COUNT 179 x10^3/uL (140-400); RED BLOOD COUNT 3.13 x10^6/uL (3.50-5.40); RED CELL DISTRIBUTION WIDTH 13.4 % (11.5-14.5); WHITE BLOOD COUNT 8.3 x10^3/uL (4.0-11.0)
[2016-07-28 05:53] LABS: ALBUMIN 2.2 g/dL (3.4-5.0); CALCIUM 8.5 mg/dL (8.5-10.1); CREATININE 2.4 mg/dL (0.6-1.0); GFR 19.1; PHOSPHORUS 4.9 mg/dL (2.6-4.7); POTASSIUM 5.2 mmol/L (3.5-5.1)
[2016-07-28] MEDS: PIPERACILLIN/TAZOBACTAM 2.25 GM in IV NORMAL SALINE 50ML 50 ML IV SCH ×3 (06:23→17:06)
[2016-07-28 07:00] VITALS: BP 107/52
[2016-07-28] MEDS: IPRATRPIUM/ALBUTEROL 0.5/2.5MG 3 ML NEBU. NEB SCH ×4 (08:13→19:29)
[2016-07-28] MEDS: NYSTATIN 100,000 UNITS/ML 5 ML ORAL.SUSP. PO SCH ×4 (09:00→20:07)
[2016-07-28] MEDS: GABAPENTIN 100 MG CAPSULE. PO SCH ×3 (09:00→20:07)
[2016-07-28] MEDS: FLUCONAZOLE 100 MG TABLET. PO SCH (09:00)
[2016-07-28] MEDS: ESCITALOPRAM 10 MG TABLET. PO SCH (09:00)
--- NOTE | 2016-07-28 09:29 | PDOC ---
Infectious Disease Note Subjective Subjective No fever much better ROS ROS GEN: Denies fevers, chills, sweats HEENT: Denies blurred vision, sore throat CV: Denies chest pain RESP: Denies shortness of air, cough GI: Denies n/v/d NEURO: Denies confusion, dizziness MSK: Denies weakness, joint pain/swelling Vital Sign Vital Signs Vital Signs Date Time Temp Pulse Resp B/P Pulse Ox O2 Delivery O2 Flow Rate FiO2 07/28/16 08:16 98 Nasal Cannula 2.0 07/28/16 07:00 98.2 74 17 107/52 98.2 Physical Exam PHYSICAL EXAM GENERAL: NAD, Alert HEENT: PERRL, OC/OP NECK: Supple, no JVD, no LN LUNGS: Clearmm chest wall rash and rash under breast better HEART: S1S2, no gallop, no murmur ABD: Soft, NT, no organomegaly, no rebound EXT: No edema, no cyanosis DOCUMENT MANAGEMENT CONSULTANT: Alert, oriented x 3, no focal neurologic deficit SKIN: No rash IV: ok Labs Lab Laboratory Tests Test 07/27/16 10:03 07/27/16 17:31 07/27/16 20:15 07/28/16 05:15 Glucose (Fingerstick) 86mg/dL (70-99) 102mg/dL (70-99) 90mg/dL (70-99) White Blood Count 8.3x10^3/uL (4.0-11.0) Red Blood Count 3.13x10^6/uL (3.50-5.40) Hemoglobin 10.3g/dL (12.0-15.5) Hematocrit 31.8% (36.0-47.0) Mean Corpuscular Volume 102fL (79-100) Mean Corpuscular Hemoglobin 33pg (25-35) Mean Corpuscular Hemoglobin Concent 33g/dL (31-37) Red Cell Distribution Width 13.4% (11.5-14.5) Platelet Count 179x10^3/uL (140-400) Neutrophils (%) (Auto) 66% (31-73) Lymphocytes (%) (Auto) 20% (24-48) Monocytes (%) (Auto) 8% (0-9) Eosinophils (%) (Auto) 5% (0-3) Basophils (%) (Auto) 1% (0-3) Neutrophils # (Auto) 5.5x10^3uL (1.8-7.7) Lymphocytes # (Auto) 1.6x10^3/uL (1.0-4.8) Monocytes # (Auto) 0.7x10^3/uL (0.0-1.1) Eosinophils # (Auto) 0.4x10^3/uL (0.0-0.7) Basophils # (Auto) 0.0x10^3/uL (0.0-0.2) Sodium Level 142mmol/L (136-145) Potassium Level 5.2mmol/L (3.5-5.1) Chloride Level 109mmol/L (98-107) Carbon Dioxide Level 24mmol/L (21-32) Anion Gap 9 (6-14) Blood Urea Nitrogen 36mg/dL (7-20) Creatinine 2.4mg/dL (0.6-1.0) Estimated GFR (Cockcroft-Gault) 19.1 Glucose Level 100mg/dL (70-99) Calcium Level 8.5mg/dL (8.5-10.1) Phosphorus Level 4.9mg/dL (2.6-4.7) Magnesium Level 2.0mg/dL (1.8-2.4) Albumin 2.2g/dL (3.4-5.0) Test 07/28/16 07:12 Glucose (Fingerstick) 96mg/dL (70-99) Objective Assessment Fever Leukocytosis Chest wall cellulitis Yeast infection under breast Renal failure Debility and self care problem Plan Plan of Care Zosyn and fluconazole Head CT pending supportive care ROCAEL GARCIA MD Jul 28, 2016 09:29
--- NOTE | 2016-07-28 10:21 | PDOC ---
PROGRESS NOTES Chief Complaint Chief Complaint A/P left upper chest and arm cellulitis, + SIRS acute on CKD3. vasomotor mild hypoxia resp failure weakness and debility mild dementia acute metabolic encephalopathy Dysphagia acute resp failure 2/2 mild fluid overloaded Plan SSI IV hydration continue current care Dysphagia persists Palliative team consultation pending, family meeting today juliette History of Present Illness History of Present Illness not able to communicated no fever d/w RN Vitals Vitals Vital Signs Date Time Temp Pulse Resp B/P Pulse Ox O2 Delivery O2 Flow Rate FiO2 07/28/16 08:16 98 Nasal Cannula 2.0 07/28/16 07:00 98.2 74 17 107/52 98.2 Physical Exam General: Alert, Oriented X3, mild distress Heart: Regular rate, Normal S1 Lungs: Crackles (bl mild) Abdomen: Normal bowel sounds, Soft Extremities: No clubbing, No edema Skin: Other Labs LABS Laboratory Tests Test 07/27/16 17:31 07/27/16 20:15 07/28/16 05:15 07/28/16 07:12 Glucose (Fingerstick) 102mg/dL (70-99) 90mg/dL (70-99) 96mg/dL (70-99) White Blood Count 8.3x10^3/uL (4.0-11.0) Red Blood Count 3.13x10^6/uL (3.50-5.40) Hemoglobin 10.3g/dL (12.0-15.5) Hematocrit 31.8% (36.0-47.0) Mean Corpuscular Volume 102fL (79-100) Mean Corpuscular Hemoglobin 33pg (25-35) Mean Corpuscular Hemoglobin Concent 33g/dL (31-37) Red Cell Distribution Width 13.4% (11.5-14.5) Platelet Count 179x10^3/uL (140-400) Neutrophils (%) (Auto) 66% (31-73) Lymphocytes (%) (Auto) 20% (24-48) Monocytes (%) (Auto) 8% (0-9) Eosinophils (%) (Auto) 5% (0-3) Basophils (%) (Auto) 1% (0-3) Neutrophils # (Auto) 5.5x10^3uL (1.8-7.7) Lymphocytes # (Auto) 1.6x10^3/uL (1.0-4.8) Monocytes # (Auto) 0.7x10^3/uL (0.0-1.1) Eosinophils # (Auto) 0.4x10^3/uL (0.0-0.7) Basophils # (Auto) 0.0x10^3/uL (0.0-0.2) Sodium Level 142mmol/L (136-145) Potassium Level 5.2mmol/L (3.5-5.1) Chloride Level 109mmol/L (98-107) Carbon Dioxide Level 24mmol/L (21-32) Anion Gap 9 (6-14) Blood Urea Nitrogen 36mg/dL (7-20) Creatinine 2.4mg/dL (0.6-1.0) Estimated GFR (Cockcroft-Gault) 19.1 Glucose Level 100mg/dL (70-99) Calcium Level 8.5mg/dL (8.5-10.1) Phosphorus Level 4.9mg/dL (2.6-4.7) Magnesium Level 2.0mg/dL (1.8-2.4) Albumin 2.2g/dL (3.4-5.0) Comment Review of Relevant I have reviewed the following items anne-marie (where applicable) has been applied. Labs Laboratory Tests Test 07/26/16 11:16 07/26/16 11:30 07/26/16 14:00 07/26/16 16:36 Glucose (Fingerstick) 114mg/dL (70-99) 133mg/dL (70-99) Troponin I Quantitative 0.023ng/mL (0.000-0.055) Urine Protein 15.6mg/dL (Not Estab.) Urine Protein 24 Hr Calculated 245.7mg/24 hr (30.0-150.0) Test 07/26/16 20:36 07/27/16 04:50 07/27/16 07:25 07/27/16 07:36 Glucose (Fingerstick) 105mg/dL (70-99) 80mg/dL (70-99) White Blood Count 7.9x10^3/uL (4.0-11.0) Red Blood Count 2.66x10^6/uL (3.50-5.40) Hemoglobin 8.9g/dL (12.0-15.5) Hematocrit 27.8% (36.0-47.0) Mean Corpuscular Volume 105fL (79-100) Mean Corpuscular Hemoglobin 34pg (25-35) Mean Corpuscular Hemoglobin Concent 32g/dL (31-37) Red Cell Distribution Width 13.6% (11.5-14.5) Platelet Count 148x10^3/uL (140-400) Neutrophils (%) (Auto) 72% (31-73) Lymphocytes (%) (Auto) 17% (24-48) Monocytes (%) (Auto) 7% (0-9) Eosinophils (%) (Auto) 5% (0-3) Basophils (%) (Auto) 0% (0-3) Neutrophils # (Auto) 5.7x10^3uL (1.8-7.7) Lymphocytes # (Auto) 1.3x10^3/uL (1.0-4.8) Monocytes # (Auto) 0.5x10^3/uL (0.0-1.1) Eosinophils # (Auto) 0.4x10^3/uL (0.0-0.7) Basophils # (Auto) 0.0x10^3/uL (0.0-0.2) Magnesium Level 2.5mg/dL (1.8-2.4) Sodium Level 139mmol/L (136-145) Potassium Level 5.9mmol/L (3.5-5.1) Chloride Level 107mmol/L (98-107) Carbon Dioxide Level 22mmol/L (21-32) Anion Gap 10 (6-14) Blood Urea Nitrogen 38mg/dL (7-20) Creatinine 2.1mg/dL (0.6-1.0) Estimated GFR (Cockcroft-Gault) 22.3 Glucose Level 107mg/dL (70-99) Calcium Level 8.8mg/dL (8.5-10.1) Phosphorus Level 4.6mg/dL (2.6-4.7) Albumin 2.1g/dL (3.4-5.0) Test 07/27/16 09:16 07/27/16 10:03 07/27/16 17:31 07/27/16 20:15 Glucose (Fingerstick) 85mg/dL (70-99) 86mg/dL (70-99) 102mg/dL (70-99) 90mg/dL (70-99) Test 07/28/16 05:15 07/28/16 07:12 White Blood Count 8.3x10^3/uL (4.0-11.0) Red Blood Count 3.13x10^6/uL (3.50-5.40) Hemoglobin 10.3g/dL (12.0-15.5) Hematocrit 31.8% (36.0-47.0) Mean Corpuscular Volume 102fL (79-100) Mean Corpuscular Hemoglobin 33pg (25-35) Mean Corpuscular Hemoglobin Concent 33g/dL (31-37) Red Cell Distribution Width 13.4% (11.5-14.5) Platelet Count 179x10^3/uL (140-400) Neutrophils (%) (Auto) 66% (31-73) Lymphocytes (%) (Auto) 20% (24-48) Monocytes (%) (Auto) 8% (0-9) Eosinophils (%) (Auto) 5% (0-3) Basophils (%) (Auto) 1% (0-3) Neutrophils # (Auto) 5.5x10^3uL (1.8-7.7) Lymphocytes # (Auto) 1.6x10^3/uL (1.0-4.8) Monocytes # (Auto) 0.7x10^3/uL (0.0-1.1) Eosinophils # (Auto) 0.4x10^3/uL (0.0-0.7) Basophils # (Auto) 0.0x10^3/uL (0.0-0.2) Sodium Level 142mmol/L (136-145) Potassium Level 5.2mmol/L (3.5-5.1) Chloride Level 109mmol/L (98-107) Carbon Dioxide Level 24mmol/L (21-32) Anion Gap 9 (6-14) Blood Urea Nitrogen 36mg/dL (7-20) Creatinine 2.4mg/dL (0.6-1.0) Estimated GFR (Cockcroft-Gault) 19.1 Glucose Level 100mg/dL (70-99) Calcium Level 8.5mg/dL (8.5-10.1) Phosphorus Level 4.9mg/dL (2.6-4.7) Magnesium Level 2.0mg/dL (1.8-2.4) Albumin 2.2g/dL (3.4-5.0) Glucose (Fingerstick) 96mg/dL (70-99) Laboratory Tests Test 07/27/16 17:31 07/27/16 20:15 07/28/16 05:15 07/28/16 07:12 Glucose (Fingerstick) 102mg/dL (70-99) 90mg/dL (70-99) 96mg/dL (70-99) White Blood Count 8.3x10^3/uL (4.0-11.0) Red Blood Count 3.13x10^6/uL (3.50-5.40) Hemoglobin 10.3g/dL (12.0-15.5) Hematocrit 31.8% (36.0-47.0) Mean Corpuscular Volume 102fL (79-100) Mean Corpuscular Hemoglobin 33pg (25-35) Mean Corpuscular Hemoglobin Concent 33g/dL (31-37) Red Cell Distribution Width 13.4% (11.5-14.5) Platelet Count 179x10^3/uL (140-400) Neutrophils (%) (Auto) 66% (31-73) Lymphocytes (%) (Auto) 20% (24-48) Monocytes (%) (Auto) 8% (0-9) Eosinophils (%) (Auto) 5% (0-3) Basophils (%) (Auto) 1% (0-3) Neutrophils # (Auto) 5.5x10^3uL (1.8-7.7) Lymphocytes # (Auto) 1.6x10^3/uL (1.0-4.8) Monocytes # (Auto) 0.7x10^3/uL (0.0-1.1) Eosinophils # (Auto) 0.4x10^3/uL (0.0-0.7) Basophils # (Auto) 0.0x10^3/uL (0.0-0.2) Sodium Level 142mmol/L (136-145) Potassium Level 5.2mmol/L (3.5-5.1) Chloride Level 109mmol/L (98-107) Carbon Dioxide Level 24mmol/L (21-32) Anion Gap 9 (6-14) Blood Urea Nitrogen 36mg/dL (7-20) Creatinine 2.4mg/dL (0.6-1.0) Estimated GFR (Cockcroft-Gault) 19.1 Glucose Level 100mg/dL (70-99) Calcium Level 8.5mg/dL (8.5-10.1) Phosphorus Level 4.9mg/dL (2.6-4.7) Magnesium Level 2.0mg/dL (1.8-2.4) Albumin 2.2g/dL (3.4-5.0) Medications Current Medications Acetaminophen (Tylenol) 325 mg PRN Q4HRS PRN PO pain; Start 07/25/16 at 08:45 Clotrimazole (Lotrimin) 1 kizzy BID TP Last administered on 07/27/16 20:58; Start 07/25/16 at 09:00 Escitalopram Oxalate (Lexapro) 10 mg DAILY PO Last administered on 07/25/16 09 :05; Start 07/25/16 at 09:00 Gabapentin (Neurontin) 100 mg TID PO Last administered on 07/25/16 09:05; Start 07/25/16 at 09:00 Acetaminophen/ Hydrocodone Bitart (Lortab 5/325) 1 tab PRN TID PRN PO PAIN MILD ; Start 07/25/16 at 08:45 Nystatin 5 ml 5 ml QID PO Last administered on 07/27/16 20:58; Start 07/25/16 at 09:00 Piperacillin Sod/ Tazobactam Sod 2.25 gm/Sodium Chloride 50 ml @ 100 mls/hr Q6HRS IV Last administered on 07/28/16 06:23; Start 07/25/16 at 12:00 Piperacillin Sod/ Tazobactam Sod 2.25 gm/Sodium Chloride 50 ml @ 100 mls/hr 1X ONCE IV Last administered on 07/25/16 09:06; Start 07/25/16 at 08:45; Stop 07/25/16 at 09:14; Status DC Sodium Chloride (Iv Sodium Chloride 0.9% 1000ml Bag) 1,000 ml @ 100 mls/hr 1X ONCE IV Last administered on 07/25/16 08:45; Start 07/25/16 at 08:45; Stop at 18:44; Status DC Albuterol/ Ipratropium (Duoneb) 3 ml RTQID NEB Last administered on 07/28/16 08:13; Start 07/25/16 at 12:00 Vancomycin HCl 1 each 1 each PRN DAILY PRN MC SEE COMMENTS; Start 07/25/16 at 09:00; Stop 07/25/16 at 11:07; Status DC Vancomycin HCl 1.25 gm/Sodium Chloride 250 ml @ 166.667 mls/hr 1X ONCE IV Last administered on 07/25/16 10:35; Start 07/25/16 at 09:15; Stop 07/25/16 at 10:44; Status DC Magnesium Sulfate/ Dextrose (Magnesium Sulfate PREMIX 2GM) 50 ml @ 25 mls/hr PRN DAILY PRN IV for Mag < 1.7 on am labs; Start 07/25/16 at 10:45 Sodium Polystyrene Sulfonate (Kayexalate) 30 gm 1X ONCE PO Last administered on 07/25/16 12:19; Start 07/25/16 at 11:00; Stop 07/25/16 at 11:01; Status DC Darbepoetin Jose (Aranesp) 60 mcg [id number] SQ Last administered on 07/25/16 20 :55; Start 07/25/16 at 21:00 Fluconazole 200 mg 200 mg DAILY PO Last administered on 07/25/16 12:18; Start 07/25/16 at 12:00 Amino Acids/ Electrolytes (Clinimix E 2.75%-5% Solution) 2,000 ml @ 80 mls/hr Q24H IV Last administered on 07/25/16 14:30; Start 07/25/16 at 14:30; Stop at 21:37; Status DC Pantoprazole Sodium (Protonix Vial) 40 mg DAILYAC IVP Last administered on 07/27 06:19; Start 07/26/16 at 07:30 Morphine Sulfate 1 mg PRN Q4HRS PRN IV PAIN Last administered on 07/27/16 09: 56; Start 07/25/16 at 21:30 Ondansetron HCl (Zofran) 4 mg PRN Q6HRS PRN IV NAUSEA/VOMITING; Start 07/26/16 at 12:45 Acetaminophen 325 mg 325 mg PRN Q6HRS PRN DC FEVER; Start 07/26/16 at 12:45 Amino Acids/ Electrolytes/ Dextrose 1,000 ml @ 80 mls/hr [id number] IV Last administered on 07/26/16 22:23; Start 07/26/16 at 21:37; Stop 07/27/16 at 09:31 ; Status DC Dextrose/Sodium Chloride (Iv D5% - NS) 1,000 ml @ 60 mls/hr [id number] IV Last administered on 07/28/16 00:38; Start 07/27/16 at 09:30 Insulin Human Regular (Novolin R Vial) 10 unit 1X ONCE IV Last administered on 07/27/16 10:55; Start 07/27/16 at 09:30; Stop 07/27/16 at 09:32; Status DC Dextrose 25 gm 1X ONCE IV Last administered on 07/27/16 10:47; Start at 09:30; Stop 07/27/16 at 09:33; Status DC Furosemide (Lasix) 20 mg 1X ONCE IVP Last administered on 07/27/16 12:12; Start 07/27/16 at 12:00; Stop 07/27/16 at 12:01; Status DC Sodium Polystyrene Sulfonate (Kayexalate) 15 gm 1X ONCE PO ; Start 07/27/16 at 12:15; Stop 07/27/16 at 14:50; Status DC Active Scripts Active Reported Nystatin 100,000 Unit/1 Ml Oral.susp 5 Ml PO QID Hydrocodone-Apap 5-325 (Hydrocodone Bit/Acetaminophen) 1 Each Tablet 1 Tab PO TID PRN Clotrimazole 15 Gm Cream..g. 1 Kizzy TP BID Escitalopram Oxalate 10 Mg Tablet 1 Tab PO DAILY Gabapentin 100 Mg Capsule 100 Mg PO TID Furosemide 20 Mg Tablet 1 Tab PO DAILY Tylenol (Acetaminophen) 325 Mg Tablet 1 Tab PO PRN Q4HRS Vitals/I & O Vital Sign - Last 24 Hours 07/27/16 07/27/16 07/27/16 07/27/16 10:26 11:00 12:38 15:00 Temp 98.5 98.2 98.5 98.2 Pulse 70 61 Resp 20 18 B/P 132/56 109/43 Pulse Ox 95 95 99 O2 Delivery Room Air Room Air Nasal Cannula Room Air O2 Flow Rate 2.0 2.0 07/27/16 07/27/16 07/27/16 07/27/16 17:00 19:00 19:30 19:53 Temp 98.0 98.0 Pulse 60 Resp 20 B/P 105/50 Pulse Ox 100 96 O2 Delivery Nasal Cannula Nasal Cannula Nasal Cannula Nasal Cannula O2 Flow Rate 2.0 2.0 2.0 07/27/16 07/28/16 07/28/16 07/28/16 23:00 03:06 07:00 08:00 Temp 98.1 97.7 98.2 98.1 97.7 98.2 Pulse 62 65 74 Resp 20 20 17 B/P 97/37 97/43 107/52 Pulse Ox 95 95 91 O2 Delivery Nasal Cannula Nasal Cannula Nasal Cannula Nasal Cannula O2 Flow Rate 2.0 2.0 07/28/16 08:16 Pulse Ox 98 O2 Delivery Nasal Cannula O2 Flow Rate 2.0 Intake and Output 07/27/16 07/27/16 07/28/16 15:00 23:00 07:00 Intake Total 1600 ml 3351 ml Output Total 1200 ml 600 ml Balance 400 ml 2751 ml ANDREA BALTAZAR MD Jul 28, 2016 10:21
[2016-07-28 10:39] VITALS: BP 110/49
[2016-07-28] MEDS: PANTOPRAZOLE IV PUSH 40 MG VIAL. IVP SCH (10:41)
[2016-07-28] MEDS: CLOTRIMAZOLE 1% TOPICAL CREAM 15GM TUBE. TP SCH ×2 (10:41→20:07)
--- NOTE | 2016-07-28 11:56 | PDOC ---
Subjective: Subjective: Denies pain. Objective: Objective: Per RN - refusing all care, palliative care consulted. Vital Signs: Vital Signs Date Time Temp Pulse Resp B/P Pulse Ox O2 Delivery O2 Flow Rate FiO2 07/28/16 10:39 98.8 67 17 110/49 92 Nasal Cannula 3.0 98.8 Labs: Laboratory Tests Test 07/27/16 17:31 07/27/16 20:15 07/28/16 05:15 07/28/16 07:12 Glucose (Fingerstick) 102mg/dL 90mg/dL 96mg/dL White Blood Count 8.3x10^3/uL Red Blood Count 3.13x10^6/uL Hemoglobin 10.3g/dL Hematocrit 31.8% Mean Corpuscular Volume 102fL Mean Corpuscular Hemoglobin 33pg Mean Corpuscular Hemoglobin Concent 33g/dL Red Cell Distribution Width 13.4% Platelet Count 179x10^3/uL Neutrophils (%) (Auto) 66% Lymphocytes (%) (Auto) 20% Monocytes (%) (Auto) 8% Eosinophils (%) (Auto) 5% Basophils (%) (Auto) 1% Neutrophils # (Auto) 5.5x10^3uL Lymphocytes # (Auto) 1.6x10^3/uL Monocytes # (Auto) 0.7x10^3/uL Eosinophils # (Auto) 0.4x10^3/uL Basophils # (Auto) 0.0x10^3/uL Sodium Level 142mmol/L Potassium Level 5.2mmol/L Chloride Level 109mmol/L Carbon Dioxide Level 24mmol/L Anion Gap 9 Blood Urea Nitrogen 36mg/dL Creatinine 2.4mg/dL Estimated GFR (Cockcroft-Gault) 19.1 Glucose Level 100mg/dL Calcium Level 8.5mg/dL Phosphorus Level 4.9mg/dL Magnesium Level 2.0mg/dL Albumin 2.2g/dL Test 07/28/16 11:15 07/28/16 11:22 Glucose (Fingerstick) 109mg/dL 112mg/dL PE: GEN: NAD LUNGS: CTAB HEART: S1S2 ABD: S/ND/NT NEURO/PSYCH: awake, alert A/P: Dysphagia -apparent history of this, coughing w/ eating ---> had previously been eating regular diet (by choice, signed consent) -failed CHILD SUPPORT SPECIALIST eval here -GI consulted re: PEG -- Await discussion w/ family, palliative care. CRISTINA LOMBARDI Jul 28, 2016 11:56
--- NOTE | 2016-07-28 12:02 | PDOC ---
Renal-Progress Notes Subjective Notes Notes NONE History of Present Illness Hx of present illness NO CHANGE Vitals Vitals Vital Signs Date Time Temp Pulse Resp B/P Pulse Ox O2 Delivery O2 Flow Rate FiO2 07/28/16 11:59 Nasal Cannula 2.0 07/28/16 10:39 98.8 67 17 110/49 92 98.8 Weight Weight [ ] I.O. Intake and Output Intake and Output 07/28/16 07:00 Intake Total 4951 ml Output Total 1800 ml Balance 3151 ml Intake Oral 1600 ml IV Total 3351 ml Output Urine Total 1800 ml # Bowel Movements 3 Labs Labs Laboratory Tests Test 07/27/16 17:31 07/27/16 20:15 07/28/16 05:15 07/28/16 07:12 Glucose (Fingerstick) 102mg/dL (70-99) 90mg/dL (70-99) 96mg/dL (70-99) White Blood Count 8.3x10^3/uL (4.0-11.0) Red Blood Count 3.13x10^6/uL (3.50-5.40) Hemoglobin 10.3g/dL (12.0-15.5) Hematocrit 31.8% (36.0-47.0) Mean Corpuscular Volume 102fL (79-100) Mean Corpuscular Hemoglobin 33pg (25-35) Mean Corpuscular Hemoglobin Concent 33g/dL (31-37) Red Cell Distribution Width 13.4% (11.5-14.5) Platelet Count 179x10^3/uL (140-400) Neutrophils (%) (Auto) 66% (31-73) Lymphocytes (%) (Auto) 20% (24-48) Monocytes (%) (Auto) 8% (0-9) Eosinophils (%) (Auto) 5% (0-3) Basophils (%) (Auto) 1% (0-3) Neutrophils # (Auto) 5.5x10^3uL (1.8-7.7) Lymphocytes # (Auto) 1.6x10^3/uL (1.0-4.8) Monocytes # (Auto) 0.7x10^3/uL (0.0-1.1) Eosinophils # (Auto) 0.4x10^3/uL (0.0-0.7) Basophils # (Auto) 0.0x10^3/uL (0.0-0.2) Sodium Level 142mmol/L (136-145) Potassium Level 5.2mmol/L (3.5-5.1) Chloride Level 109mmol/L (98-107) Carbon Dioxide Level 24mmol/L (21-32) Anion Gap 9 (6-14) Blood Urea Nitrogen 36mg/dL (7-20) Creatinine 2.4mg/dL (0.6-1.0) Estimated GFR (Cockcroft-Gault) 19.1 Glucose Level 100mg/dL (70-99) Calcium Level 8.5mg/dL (8.5-10.1) Phosphorus Level 4.9mg/dL (2.6-4.7) Magnesium Level 2.0mg/dL (1.8-2.4) Albumin 2.2g/dL (3.4-5.0) Test 07/28/16 11:15 07/28/16 11:22 Glucose (Fingerstick) 109mg/dL (70-99) 112mg/dL (70-99) Review of Systems Constitutional: yes: no symptom reported Physical Exam General Appearance: no apparent distress Respiratory: bilateral CTA Heart: S1S2, no rubs Neurology: alert Musculoskeletal: low back pain Assessment Assessment IMP ENCEPHALOPATHY DYSPHAGIA 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
[2016-07-28] MEDS ORDERED: AA 2.75%/CALCIUM/LYTES/D5W 1,000 ML IV SCH (13:00)
--- NOTE | 2016-07-28 13:07 | PDOC ---
PROGRESS NOTES Subjective Subjective Patient is still in pain. Agreeable to a plan including keeping pain under control. Objective Objective Vital Signs Date Time Temp Pulse Resp B/P Pulse Ox O2 Delivery O2 Flow Rate FiO2 07/28/16 11:59 Nasal Cannula 2.0 07/28/16 10:39 98.8 67 17 110/49 92 98.8 Intake and Output 07/28/16 07:00 Intake Total 4951 ml Output Total 1800 ml Balance 3151 ml Intake Oral 1600 ml IV Total 3351 ml Output Urine Total 1800 ml # Bowel Movements 3 Physical Exam Physical Exam Physical exam unchanged Plan Plan of Care No change in the cardiac plan of care. Patient and family have a meeting this afternoon to discuss patient's wishes for treatment moving forward. Comment Review of Relevant I have reviewed the following items anne-marie (where applicable) has been applied. Labs Laboratory Tests Test 07/26/16 14:00 07/26/16 16:36 07/26/16 20:36 07/27/16 04:50 Urine Protein 15.6mg/dL (Not Estab.) Urine Protein 24 Hr Calculated 245.7mg/24 hr (30.0-150.0) Glucose (Fingerstick) 133mg/dL (70-99) 105mg/dL (70-99) White Blood Count 7.9x10^3/uL (4.0-11.0) Red Blood Count 2.66x10^6/uL (3.50-5.40) Hemoglobin 8.9g/dL (12.0-15.5) Hematocrit 27.8% (36.0-47.0) Mean Corpuscular Volume 105fL (79-100) Mean Corpuscular Hemoglobin 34pg (25-35) Mean Corpuscular Hemoglobin Concent 32g/dL (31-37) Red Cell Distribution Width 13.6% (11.5-14.5) Platelet Count 148x10^3/uL (140-400) Neutrophils (%) (Auto) 72% (31-73) Lymphocytes (%) (Auto) 17% (24-48) Monocytes (%) (Auto) 7% (0-9) Eosinophils (%) (Auto) 5% (0-3) Basophils (%) (Auto) 0% (0-3) Neutrophils # (Auto) 5.7x10^3uL (1.8-7.7) Lymphocytes # (Auto) 1.3x10^3/uL (1.0-4.8) Monocytes # (Auto) 0.5x10^3/uL (0.0-1.1) Eosinophils # (Auto) 0.4x10^3/uL (0.0-0.7) Basophils # (Auto) 0.0x10^3/uL (0.0-0.2) Magnesium Level 2.5mg/dL (1.8-2.4) Test 07/27/16 07:25 07/27/16 07:36 07/27/16 09:16 07/27/16 10:03 Sodium Level 139mmol/L (136-145) Potassium Level 5.9mmol/L (3.5-5.1) Chloride Level 107mmol/L (98-107) Carbon Dioxide Level 22mmol/L (21-32) Anion Gap 10 (6-14) Blood Urea Nitrogen 38mg/dL (7-20) Creatinine 2.1mg/dL (0.6-1.0) Estimated GFR (Cockcroft-Gault) 22.3 Glucose Level 107mg/dL (70-99) Calcium Level 8.8mg/dL (8.5-10.1) Phosphorus Level 4.6mg/dL (2.6-4.7) Albumin 2.1g/dL (3.4-5.0) Glucose (Fingerstick) 80mg/dL (70-99) 85mg/dL (70-99) 86mg/dL (70-99) Test 07/27/16 17:31 07/27/16 20:15 07/28/16 05:15 07/28/16 07:12 Glucose (Fingerstick) 102mg/dL (70-99) 90mg/dL (70-99) 96mg/dL (70-99) White Blood Count 8.3x10^3/uL (4.0-11.0) Red Blood Count 3.13x10^6/uL (3.50-5.40) Hemoglobin 10.3g/dL (12.0-15.5) Hematocrit 31.8% (36.0-47.0) Mean Corpuscular Volume 102fL (79-100) Mean Corpuscular Hemoglobin 33pg (25-35) Mean Corpuscular Hemoglobin Concent 33g/dL (31-37) Red Cell Distribution Width 13.4% (11.5-14.5) Platelet Count 179x10^3/uL (140-400) Neutrophils (%) (Auto) 66% (31-73) Lymphocytes (%) (Auto) 20% (24-48) Monocytes (%) (Auto) 8% (0-9) Eosinophils (%) (Auto) 5% (0-3) Basophils (%) (Auto) 1% (0-3) Neutrophils # (Auto) 5.5x10^3uL (1.8-7.7) Lymphocytes # (Auto) 1.6x10^3/uL (1.0-4.8) Monocytes # (Auto) 0.7x10^3/uL (0.0-1.1) Eosinophils # (Auto) 0.4x10^3/uL (0.0-0.7) Basophils # (Auto) 0.0x10^3/uL (0.0-0.2) Sodium Level 142mmol/L (136-145) Potassium Level 5.2mmol/L (3.5-5.1) Chloride Level 109mmol/L (98-107) Carbon Dioxide Level 24mmol/L (21-32) Anion Gap 9 (6-14) Blood Urea Nitrogen 36mg/dL (7-20) Creatinine 2.4mg/dL (0.6-1.0) Estimated GFR (Cockcroft-Gault) 19.1 Glucose Level 100mg/dL (70-99) Calcium Level 8.5mg/dL (8.5-10.1) Phosphorus Level 4.9mg/dL (2.6-4.7) Magnesium Level 2.0mg/dL (1.8-2.4) Albumin 2.2g/dL (3.4-5.0) Test 07/28/16 11:15 07/28/16 11:22 Glucose (Fingerstick) 109mg/dL (70-99) 112mg/dL (70-99) Laboratory Tests Test 07/27/16 17:31 07/27/16 20:15 07/28/16 05:15 07/28/16 07:12 Glucose (Fingerstick) 102mg/dL (70-99) 90mg/dL (70-99) 96mg/dL (70-99) White Blood Count 8.3x10^3/uL (4.0-11.0) Red Blood Count 3.13x10^6/uL (3.50-5.40) Hemoglobin 10.3g/dL (12.0-15.5) Hematocrit 31.8% (36.0-47.0) Mean Corpuscular Volume 102fL (79-100) Mean Corpuscular Hemoglobin 33pg (25-35) Mean Corpuscular Hemoglobin Concent 33g/dL (31-37) Red Cell Distribution Width 13.4% (11.5-14.5) Platelet Count 179x10^3/uL (140-400) Neutrophils (%) (Auto) 66% (31-73) Lymphocytes (%) (Auto) 20% (24-48) Monocytes (%) (Auto) 8% (0-9) Eosinophils (%) (Auto) 5% (0-3) Basophils (%) (Auto) 1% (0-3) Neutrophils # (Auto) 5.5x10^3uL (1.8-7.7) Lymphocytes # (Auto) 1.6x10^3/uL (1.0-4.8) Monocytes # (Auto) 0.7x10^3/uL (0.0-1.1) Eosinophils # (Auto) 0.4x10^3/uL (0.0-0.7) Basophils # (Auto) 0.0x10^3/uL (0.0-0.2) Sodium Level 142mmol/L (136-145) Potassium Level 5.2mmol/L (3.5-5.1) Chloride Level 109mmol/L (98-107) Carbon Dioxide Level 24mmol/L (21-32) Anion Gap 9 (6-14) Blood Urea Nitrogen 36mg/dL (7-20) Creatinine 2.4mg/dL (0.6-1.0) Estimated GFR (Cockcroft-Gault) 19.1 Glucose Level 100mg/dL (70-99) Calcium Level 8.5mg/dL (8.5-10.1) Phosphorus Level 4.9mg/dL (2.6-4.7) Magnesium Level 2.0mg/dL (1.8-2.4) Albumin 2.2g/dL (3.4-5.0) Test 07/28/16 11:15 07/28/16 11:22 Glucose (Fingerstick) 109mg/dL (70-99) 112mg/dL (70-99) Medications Current Medications Acetaminophen (Tylenol) 325 mg PRN Q4HRS PRN PO pain; Start 07/25/16 at 08:45 Clotrimazole (Lotrimin) 1 kizzy BID TP Last administered on 07/28/16 10:41; Start 07/25/16 at 09:00 Escitalopram Oxalate (Lexapro) 10 mg DAILY PO Last administered on 07/25/16 09 :05; Start 07/25/16 at 09:00 Gabapentin (Neurontin) 100 mg TID PO Last administered on 07/25/16 09:05; Start 07/25/16 at 09:00 Acetaminophen/ Hydrocodone Bitart (Lortab 5/325) 1 tab PRN TID PRN PO PAIN MILD ; Start 07/25/16 at 08:45 Nystatin 5 ml 5 ml QID PO Last administered on 07/27/16 20:58; Start 07/25/16 at 09:00 Piperacillin Sod/ Tazobactam Sod 2.25 gm/Sodium Chloride 50 ml @ 100 mls/hr Q6HRS IV Last administered on 07/28/16 06:23; Start 07/25/16 at 12:00 Piperacillin Sod/ Tazobactam Sod 2.25 gm/Sodium Chloride 50 ml @ 100 mls/hr 1X ONCE IV Last administered on 07/25/16 09:06; Start 07/25/16 at 08:45; Stop 07/25/16 at 09:14; Status DC Sodium Chloride (Iv Sodium Chloride 0.9% 1000ml Bag) 1,000 ml @ 100 mls/hr 1X ONCE IV Last administered on 07/25/16 08:45; Start 07/25/16 at 08:45; Stop at 18:44; Status DC Albuterol/ Ipratropium (Duoneb) 3 ml RTQID NEB Last administered on 07/28/16 11:58; Start 07/25/16 at 12:00 Vancomycin HCl 1 each 1 each PRN DAILY PRN MC SEE COMMENTS; Start 07/25/16 at 09:00; Stop 07/25/16 at 11:07; Status DC Vancomycin HCl 1.25 gm/Sodium Chloride 250 ml @ 166.667 mls/hr 1X ONCE IV Last administered on 07/25/16 10:35; Start 07/25/16 at 09:15; Stop 07/25/16 at 10:44; Status DC Magnesium Sulfate/ Dextrose (Magnesium Sulfate PREMIX 2GM) 50 ml @ 25 mls/hr PRN DAILY PRN IV for Mag < 1.7 on am labs; Start 07/25/16 at 10:45 Sodium Polystyrene Sulfonate (Kayexalate) 30 gm 1X ONCE PO Last administered on 07/25/16 12:19; Start 07/25/16 at 11:00; Stop 07/25/16 at 11:01; Status DC Darbepoetin Jose (Aranesp) 60 mcg WEEKLYHS SQ Last administered on 07/25/16 20 :55; Start 07/25/16 at 21:00 Fluconazole 200 mg 200 mg DAILY PO Last administered on 07/25/16 12:18; Start 07/25/16 at 12:00 Amino Acids/ Electrolytes (Clinimix E 2.75%-5% Solution) 2,000 ml @ 80 mls/hr Q24H IV Last administered on 07/25/16 14:30; Start 07/25/16 at 14:30; Stop at 21:37; Status DC Pantoprazole Sodium (Protonix Vial) 40 mg DAILYAC IVP Last administered on 07/28 10:41; Start 07/26/16 at 07:30 Morphine Sulfate 1 mg PRN Q4HRS PRN IV PAIN Last administered on 07/27/16 09: 56; Start 07/25/16 at 21:30 Ondansetron HCl (Zofran) 4 mg PRN Q6HRS PRN IV NAUSEA/VOMITING; Start 07/26/16 at 12:45 Acetaminophen 325 mg 325 mg PRN Q6HRS PRN RI FEVER; Start 07/26/16 at 12:45 Amino Acids/ Electrolytes/ Dextrose 1,000 ml @ 80 mls/hr [id number] IV Last administered on 07/26/16 22:23; Start 07/26/16 at 21:37; Stop 07/27/16 at 09:31 ; Status DC Dextrose/Sodium Chloride (Iv D5% - NS) 1,000 ml @ 60 mls/hr [id number] IV Last administered on 07/28/16 00:38; Start 07/27/16 at 09:30; Stop 07/28/16 at 12:03 ; Status DC Insulin Human Regular (Novolin R Vial) 10 unit 1X ONCE IV Last administered on 07/27/16 10:55; Start 07/27/16 at 09:30; Stop 07/27/16 at 09:32; Status DC Dextrose 25 gm 1X ONCE IV Last administered on 07/27/16 10:47; Start at 09:30; Stop 07/27/16 at 09:33; Status DC Furosemide (Lasix) 20 mg 1X ONCE IVP Last administered on 07/27/16 12:12; Start 07/27/16 at 12:00; Stop 07/27/16 at 12:01; Status DC Sodium Polystyrene Sulfonate 15 gm 15 gm 1X ONCE PO ; Start 07/27/16 at 12:15; Stop 07/27/16 at 14:50; Status DC Amino Acids/ Electrolytes (Clinimix E 2.75%-5% Solution) 1,000 ml @ 80 mls/hr [id number] IV ; Start 07/28/16 at 13:00 Active Scripts Active Reported Nystatin 100,000 Unit/1 Ml Oral.susp 5 Ml PO QID Hydrocodone-Apap 5-325 (Hydrocodone Bit/Acetaminophen) 1 Each Tablet 1 Tab PO TID PRN Clotrimazole 15 Gm Cream..g. 1 Kizzy TP BID Escitalopram Oxalate 10 Mg Tablet 1 Tab PO DAILY Gabapentin 100 Mg Capsule 100 Mg PO TID Furosemide 20 Mg Tablet 1 Tab PO DAILY Tylenol (Acetaminophen) 325 Mg Tablet 1 Tab PO PRN Q4HRS Vitals/I & O Vital Sign - Last 24 Hours 07/27/16 07/27/16 07/27/16 07/27/16 15:00 17:00 19:00 19:30 Temp 98.2 98.0 98.2 98.0 Pulse 61 60 Resp 18 20 B/P 109/43 105/50 Pulse Ox 99 100 O2 Delivery Room Air Nasal Cannula Nasal Cannula Nasal Cannula O2 Flow Rate 2.0 2.0 07/27/16 07/27/16 07/28/16 07/28/16 19:53 23:00 03:06 07:00 Temp 98.1 97.7 98.2 98.1 97.7 98.2 Pulse 62 65 74 Resp 20 20 17 B/P 97/37 97/43 107/52 Pulse Ox 96 95 95 91 O2 Delivery Nasal Cannula Nasal Cannula Nasal Cannula Nasal Cannula O2 Flow Rate 2.0 2.0 07/28/16 07/28/16 07/28/16 07/28/16 08:00 08:16 10:39 11:59 Temp 98.8 98.8 Pulse 67 Resp 17 B/P 110/49 Pulse Ox 98 92 O2 Delivery Nasal Cannula Nasal Cannula Nasal Cannula Nasal Cannula O2 Flow Rate 2.0 2.0 3.0 2.0 Intake and Output 07/27/16 07/27/16 07/28/16 15:00 23:00 07:00 Intake Total 1600 ml 3351 ml Output Total 1200 ml 600 ml Balance 400 ml 2751 ml JENNIFER ZEPEDA MD Jul 28, 2016 13:07
[2016-07-28 15:09] VITALS: BP 118/48
--- NOTE | 2016-07-28 16:07 | PDOC2 ---
PALLIATIVE CARE Palliative Care Note Palliative Care Consult requested by Dr. Burdick to address need for hospice. Patient alert. Patient is able to communicate through gestures her wishes. Diagnosis: Upper Chest/arm cellulites; SIRS; Mild Respiratory Failure; weakness /debility; mild dementia, metabolic encephalopathy -improved; dysphagia. Patient has failed swallow evaluation. refuses tube feedings; refuses dialysis ; indicated that wishes to be kept comfortable. Met with RYLAN Ely. Reviewed medical condition. Patient is resident of [facility]--has been on hospice but did not decline so was signed out. Reviewed labs. Discussed options for care. Continue current aggressive care. vs comfort care vs limitations of care. Jhoana would like Alena to return to the Group Home with Hospice. She has no preference of agency. Discussed Code Status; DNR/DNI confirmed. Outside the Hospital form completed. Discussed pleasure feedings. Jhoana stated patient had been eating at the senior care knowing the risk of aspiration. She would like patient to continue with pleasure feedings understanding this could lead to aspiration pneumonia and . Plan: DNR/DNI outside the hospital form completed Return to Group Home with Hospice. No preference of agency. Pleasure Feedings as requested Spoke with Jes FARMER who will assist with discharge plans. ADEN MELGAR Jul 28, 2016 16:07
[2016-07-28 19:45] VITALS: BP 112/49
[2016-07-28 22:42] VITALS: BP 138/63
[2016-07-29] MEDS: PIPERACILLIN/TAZOBACTAM 2.25 GM in IV NORMAL SALINE 50ML 50 ML IV SCH ×3 (00:52→12:00)
[2016-07-29] MEDS: MORPHINE SULFATE 2 MG/ML DISP.SYRIN. IV PRN ×2 (00:53→08:20)
[2016-07-29] MEDS ORDERED: AA 4.25%/CALCIUM/LYTES/D5W 1,000 ML IV SCH (06:04)
[2016-07-29 07:00] VITALS: BP 112/52
[2016-07-29 07:06] LABS: ALBUMIN 2.2 g/dL (3.4-5.0); CALCIUM 8.8 mg/dL (8.5-10.1); CREATININE 2.3 mg/dL (0.6-1.0); GFR 20.1; PHOSPHORUS 4.4 mg/dL (2.6-4.7); POTASSIUM 5.5 mmol/L (3.5-5.1)
[2016-07-29] MEDS: IPRATRPIUM/ALBUTEROL 0.5/2.5MG 3 ML NEBU. NEB SCH ×2 (07:44→11:47)
[2016-07-29] MEDS: FLUCONAZOLE 100 MG TABLET. PO SCH (08:01)
[2016-07-29] MEDS: NYSTATIN 100,000 UNITS/ML 5 ML ORAL.SUSP. PO SCH ×2 (08:01→13:00)
[2016-07-29] MEDS: GABAPENTIN 100 MG CAPSULE. PO SCH ×2 (08:01→14:00)
[2016-07-29] MEDS: ESCITALOPRAM 10 MG TABLET. PO SCH (08:01)
[2016-07-29] MEDS: PANTOPRAZOLE IV PUSH 40 MG VIAL. IVP SCH (08:06)
[2016-07-29] MEDS: CLOTRIMAZOLE 1% TOPICAL CREAM 15GM TUBE. TP SCH (08:06)
--- NOTE | 2016-07-29 08:47 | PDOC ---
PROGRESS NOTES Subjective Subjective No acute distress this am. Pt mildly sedated. Spoke with niece at bedside. Family decided on hospice care. Objective Objective Vital Signs Date Time Temp Pulse Resp B/P Pulse Ox O2 Delivery O2 Flow Rate FiO2 07/29/16 08:20 20 93 Nasal Cannula 2.0 07/29/16 07:00 98.3 63 112/52 98.3 Intake and Output 07/29/16 07:00 Intake Total 50 ml Output Total 500 ml Balance -450 ml Intake Oral 0 ml IV Total 50 ml Output Urine Total 500 ml # Bowel Movements 1 Physical Exam Physical Exam No changes in cardiac exam Plan Plan of Care Stable from cardiac standpoint Agree with current plan Comment Review of Relevant I have reviewed the following items anne-marie (where applicable) has been applied. Labs Laboratory Tests Test 07/27/16 09:16 07/27/16 10:03 07/27/16 17:31 07/27/16 20:15 Glucose (Fingerstick) 85mg/dL (70-99) 86mg/dL (70-99) 102mg/dL (70-99) 90mg/dL (70-99) Test 07/28/16 05:15 07/28/16 07:12 07/28/16 11:15 07/28/16 11:22 White Blood Count 8.3x10^3/uL (4.0-11.0) Red Blood Count 3.13x10^6/uL (3.50-5.40) Hemoglobin 10.3g/dL (12.0-15.5) Hematocrit 31.8% (36.0-47.0) Mean Corpuscular Volume 102fL (79-100) Mean Corpuscular Hemoglobin 33pg (25-35) Mean Corpuscular Hemoglobin Concent 33g/dL (31-37) Red Cell Distribution Width 13.4% (11.5-14.5) Platelet Count 179x10^3/uL (140-400) Neutrophils (%) (Auto) 66% (31-73) Lymphocytes (%) (Auto) 20% (24-48) Monocytes (%) (Auto) 8% (0-9) Eosinophils (%) (Auto) 5% (0-3) Basophils (%) (Auto) 1% (0-3) Neutrophils # (Auto) 5.5x10^3uL (1.8-7.7) Lymphocytes # (Auto) 1.6x10^3/uL (1.0-4.8) Monocytes # (Auto) 0.7x10^3/uL (0.0-1.1) Eosinophils # (Auto) 0.4x10^3/uL (0.0-0.7) Basophils # (Auto) 0.0x10^3/uL (0.0-0.2) Sodium Level 142mmol/L (136-145) Potassium Level 5.2mmol/L (3.5-5.1) Chloride Level 109mmol/L (98-107) Carbon Dioxide Level 24mmol/L (21-32) Anion Gap 9 (6-14) Blood Urea Nitrogen 36mg/dL (7-20) Creatinine 2.4mg/dL (0.6-1.0) Estimated GFR (Cockcroft-Gault) 19.1 Glucose Level 100mg/dL (70-99) Calcium Level 8.5mg/dL (8.5-10.1) Phosphorus Level 4.9mg/dL (2.6-4.7) Magnesium Level 2.0mg/dL (1.8-2.4) Albumin 2.2g/dL (3.4-5.0) Glucose (Fingerstick) 96mg/dL (70-99) 109mg/dL (70-99) 112mg/dL (70-99) Test 07/28/16 16:16 07/28/16 21:01 07/29/16 05:25 07/29/16 07:36 Glucose (Fingerstick) 97mg/dL (70-99) 105mg/dL (70-99) 106mg/dL (70-99) Sodium Level 142mmol/L (136-145) Potassium Level 5.5mmol/L (3.5-5.1) Chloride Level 108mmol/L (98-107) Carbon Dioxide Level 22mmol/L (21-32) Anion Gap 12 (6-14) Blood Urea Nitrogen 38mg/dL (7-20) Creatinine 2.3mg/dL (0.6-1.0) Estimated GFR (Cockcroft-Gault) 20.1 Glucose Level 94mg/dL (70-99) Calcium Level 8.8mg/dL (8.5-10.1) Phosphorus Level 4.4mg/dL (2.6-4.7) Magnesium Level 2.0mg/dL (1.8-2.4) Albumin 2.2g/dL (3.4-5.0) Laboratory Tests Test 07/28/16 11:15 07/28/16 11:22 07/28/16 16:16 07/28/16 21:01 Glucose (Fingerstick) 109mg/dL (70-99) 112mg/dL (70-99) 97mg/dL (70-99) 105mg/dL (70-99) Test 07/29/16 05:25 07/29/16 07:36 Sodium Level 142mmol/L (136-145) Potassium Level 5.5mmol/L (3.5-5.1) Chloride Level 108mmol/L (98-107) Carbon Dioxide Level 22mmol/L (21-32) Anion Gap 12 (6-14) Blood Urea Nitrogen 38mg/dL (7-20) Creatinine 2.3mg/dL (0.6-1.0) Estimated GFR (Cockcroft-Gault) 20.1 Glucose Level 94mg/dL (70-99) Calcium Level 8.8mg/dL (8.5-10.1) Phosphorus Level 4.4mg/dL (2.6-4.7) Magnesium Level 2.0mg/dL (1.8-2.4) Albumin 2.2g/dL (3.4-5.0) Glucose (Fingerstick) 106mg/dL (70-99) Medications Current Medications Acetaminophen (Tylenol) 325 mg PRN Q4HRS PRN PO pain; Start 07/25/16 at 08:45 Clotrimazole (Lotrimin) 1 kizzy BID TP Last administered on 07/28/16 20:07; Start 07/25/16 at 09:00 Escitalopram Oxalate (Lexapro) 10 mg DAILY PO Last administered on 07/25/16 09 :05; Start 07/25/16 at 09:00 Gabapentin (Neurontin) 100 mg TID PO Last administered on 07/25/16 09:05; Start 07/25/16 at 09:00 Acetaminophen/ Hydrocodone Bitart (Lortab 5/325) 1 tab PRN TID PRN PO PAIN MILD ; Start 07/25/16 at 08:45 Nystatin 5 ml 5 ml QID PO Last administered on 07/27/16 20:58; Start 07/25/16 at 09:00 Piperacillin Sod/ Tazobactam Sod 2.25 gm/Sodium Chloride 50 ml @ 100 mls/hr Q6HRS IV Last administered on 07/29/16 06:12; Start 07/25/16 at 12:00 Piperacillin Sod/ Tazobactam Sod 2.25 gm/Sodium Chloride 50 ml @ 100 mls/hr 1X ONCE IV Last administered on 07/25/16 09:06; Start 07/25/16 at 08:45; Stop 07/25/16 at 09:14; Status DC Sodium Chloride (Iv Sodium Chloride 0.9% 1000ml Bag) 1,000 ml @ 100 mls/hr 1X ONCE IV Last administered on 07/25/16 08:45; Start 07/25/16 at 08:45; Stop at 18:44; Status DC Albuterol/ Ipratropium (Duoneb) 3 ml RTQID NEB Last administered on 07/29/16 07:44; Start 07/25/16 at 12:00 Vancomycin HCl 1 each 1 each PRN DAILY PRN MC SEE COMMENTS; Start 07/25/16 at 09:00; Stop 07/25/16 at 11:07; Status DC Vancomycin HCl 1.25 gm/Sodium Chloride 250 ml @ 166.667 mls/hr 1X ONCE IV Last administered on 07/25/16 10:35; Start 07/25/16 at 09:15; Stop 07/25/16 at 10:44; Status DC Magnesium Sulfate/ Dextrose (Magnesium Sulfate PREMIX 2GM) 50 ml @ 25 mls/hr PRN DAILY PRN IV for Mag < 1.7 on am labs; Start 07/25/16 at 10:45 Sodium Polystyrene Sulfonate (Kayexalate) 30 gm 1X ONCE PO Last administered on 07/25/16 12:19; Start 07/25/16 at 11:00; Stop 07/25/16 at 11:01; Status DC Darbepoetin Jose (Aranesp) 60 mcg WEEKLYHS SQ Last administered on 07/25/16 20 :55; Start 07/25/16 at 21:00 Fluconazole 200 mg 200 mg DAILY PO Last administered on 07/25/16 12:18; Start 07/25/16 at 12:00 Amino Acids/ Electrolytes (Clinimix E 2.75%-5% Solution) 2,000 ml @ 80 mls/hr Q24H IV Last administered on 07/25/16 14:30; Start 07/25/16 at 14:30; Stop at 21:37; Status DC Pantoprazole Sodium (Protonix Vial) 40 mg DAILYAC IVP Last administered on 07/29 08:06; Start 07/26/16 at 07:30 Morphine Sulfate 1 mg PRN Q4HRS PRN IV PAIN Last administered on 07/29/16 08: 20; Start 07/25/16 at 21:30 Ondansetron HCl (Zofran) 4 mg PRN Q6HRS PRN IV NAUSEA/VOMITING; Start 07/26/16 at 12:45 Acetaminophen 325 mg 325 mg PRN Q6HRS PRN MI FEVER; Start 07/26/16 at 12:45 Amino Acids/ Electrolytes/ Dextrose 1,000 ml @ 80 mls/hr [id number] IV Last administered on 07/26/16 22:23; Start 07/26/16 at 21:37; Stop 07/27/16 at 09:31 ; Status DC Dextrose/Sodium Chloride (Iv D5% - NS) 1,000 ml @ 60 mls/hr [id number] IV Last administered on 07/28/16 00:38; Start 07/27/16 at 09:30; Stop 07/28/16 at 12:03 ; Status DC Insulin Human Regular (Novolin R Vial) 10 unit 1X ONCE IV Last administered on 07/27/16 10:55; Start 07/27/16 at 09:30; Stop 07/27/16 at 09:32; Status DC Dextrose 25 gm 1X ONCE IV Last administered on 07/27/16 10:47; Start at 09:30; Stop 07/27/16 at 09:33; Status DC Furosemide (Lasix) 20 mg 1X ONCE IVP Last administered on 07/27/16 12:12; Start 07/27/16 at 12:00; Stop 07/27/16 at 12:01; Status DC Sodium Polystyrene Sulfonate 15 gm 15 gm 1X ONCE PO ; Start 07/27/16 at 12:15; Stop 07/27/16 at 14:50; Status DC Amino Acids/ Electrolytes 1,000 ml @ 80 mls/hr [id number] IV Last administered on 07/28/16 13:15; Start 07/28/16 at 13:00; Stop 07/29/16 at 06:04; Status DC Amino Acids/ Electrolytes/ Dextrose (Clinimix E 4.25%-5% Solution) 1,000 ml @ 80 mls/hr [id number] IV Last administered on 07/29/16 06:13; Start 07/29/16 at 06 :04 Active Scripts Active Reported Nystatin 100,000 Unit/1 Ml Oral.susp 5 Ml PO QID Hydrocodone-Apap 5-325 (Hydrocodone Bit/Acetaminophen) 1 Each Tablet 1 Tab PO TID PRN Clotrimazole 15 Gm Cream..g. 1 Kizzy TP BID Escitalopram Oxalate 10 Mg Tablet 1 Tab PO DAILY Gabapentin 100 Mg Capsule 100 Mg PO TID Furosemide 20 Mg Tablet 1 Tab PO DAILY Tylenol (Acetaminophen) 325 Mg Tablet 1 Tab PO PRN Q4HRS Vitals/I & O Vital Sign - Last 24 Hours 07/28/16 07/28/16 07/28/16 07/28/16 10:39 11:59 15:09 16:16 Temp 98.8 98.4 98.8 98.4 Pulse 67 83 Resp 17 17 B/P 110/49 118/48 Pulse Ox 92 92 O2 Delivery Nasal Cannula Nasal Cannula Nasal Cannula Nasal Cannula O2 Flow Rate 3.0 2.0 2.0 2.0 07/28/16 07/28/16 07/28/16 07/28/16 19:30 19:45 20:00 22:42 Temp 97.4 97.6 97.4 97.6 Pulse 73 81 Resp 20 22 B/P 112/49 138/63 Pulse Ox 91 91 O2 Delivery Nasal Cannula Room Air Nasal Cannula Room Air O2 Flow Rate 2.0 2.0 07/29/16 07/29/16 07/29/16 00:53 07:00 08:20 Temp 98.3 98.3 Pulse 63 Resp 20 20 B/P 112/52 Pulse Ox 93 93 O2 Delivery Room Air Room Air Nasal Cannula O2 Flow Rate 2.0 Intake and Output 07/28/16 07/28/16 07/29/16 15:00 23:00 07:00 Intake Total 0 ml 0 ml 50 ml Output Total 500 ml Balance 0 ml -500 ml 50 ml JENNIFER ZEPEDA MD Jul 29, 2016 08:47
--- NOTE | 2016-07-29 09:32 | PDOC ---
Infectious Disease Note Subjective Subjective sleepy hospice decided [facility] sleepy Vital Sign Vital Signs Vital Signs Date Time Temp Pulse Resp B/P Pulse Ox O2 Delivery O2 Flow Rate FiO2 07/29/16 08:20 20 93 Nasal Cannula 2.0 07/29/16 07:00 98.3 63 112/52 98.3 Physical Exam PHYSICAL EXAM GENERAL: NAD, sleepy HEENT: PERRL, OC/OP NECK: Supple, no JVD, no LN LUNGS: Clear HEART: S1S2, no gallop, no murmur ABD: Soft, NT, no organomegaly, no rebound EXT: No edema, no cyanosis BULB INSPECTOR: Alert, oriented x 3, no focal neurologic deficit SKIN: No rash IV: ok Labs Lab Laboratory Tests Test 07/28/16 11:15 07/28/16 11:22 07/28/16 16:16 07/28/16 21:01 Glucose (Fingerstick) 109mg/dL (70-99) 112mg/dL (70-99) 97mg/dL (70-99) 105mg/dL (70-99) Test 07/29/16 05:25 07/29/16 07:36 Sodium Level 142mmol/L (136-145) Potassium Level 5.5mmol/L (3.5-5.1) Chloride Level 108mmol/L (98-107) Carbon Dioxide Level 22mmol/L (21-32) Anion Gap 12 (6-14) Blood Urea Nitrogen 38mg/dL (7-20) Creatinine 2.3mg/dL (0.6-1.0) Estimated GFR (Cockcroft-Gault) 20.1 Glucose Level 94mg/dL (70-99) Calcium Level 8.8mg/dL (8.5-10.1) Phosphorus Level 4.4mg/dL (2.6-4.7) Magnesium Level 2.0mg/dL (1.8-2.4) Albumin 2.2g/dL (3.4-5.0) Glucose (Fingerstick) 106mg/dL (70-99) Objective Assessment Fever Leukocytosis Chest wall cellulitis Yeast infection under breast Renal failure Debility and self care problem Plan Plan of Care d/c to NH on hospice d/w family ROCAEL GARCIA MD Jul 29, 2016 09:32
[2016-07-29 11:10] VITALS: BP 119/58
--- NOTE | 2016-07-29 11:24 | PDOC ---
Renal-Progress Notes Subjective Notes Notes NONE History of Present Illness Hx of present illness NO CHANGE Vitals Vitals Vital Signs Date Time Temp Pulse Resp B/P Pulse Ox O2 Delivery O2 Flow Rate FiO2 07/29/16 11:10 98.2 70 18 119/58 95 Room Air 98.2 07/29/16 08:50 2.0 Weight Weight [ ] I.O. Intake and Output Intake and Output 07/29/16 07:00 Intake Total 50 ml Output Total 500 ml Balance -450 ml Intake Oral 0 ml IV Total 50 ml Output Urine Total 500 ml # Bowel Movements 1 Labs Labs Laboratory Tests Test 07/28/16 16:16 07/28/16 21:01 07/29/16 05:25 07/29/16 07:36 Glucose (Fingerstick) 97mg/dL (70-99) 105mg/dL (70-99) 106mg/dL (70-99) Sodium Level 142mmol/L (136-145) Potassium Level 5.5mmol/L (3.5-5.1) Chloride Level 108mmol/L (98-107) Carbon Dioxide Level 22mmol/L (21-32) Anion Gap 12 (6-14) Blood Urea Nitrogen 38mg/dL (7-20) Creatinine 2.3mg/dL (0.6-1.0) Estimated GFR (Cockcroft-Gault) 20.1 Glucose Level 94mg/dL (70-99) Calcium Level 8.8mg/dL (8.5-10.1) Phosphorus Level 4.4mg/dL (2.6-4.7) Magnesium Level 2.0mg/dL (1.8-2.4) Albumin 2.2g/dL (3.4-5.0) Review of Systems Constitutional: yes: no symptom reported Physical Exam General Appearance: no apparent distress Neurology: confused Assessment Assessment IMP ENCEPHALOPATHY DYSPHAGIA CKD STAGE 4 TO 5 ANEMIA PROB SEPSIS ANEMIA CHEST WALL CELLULITIS PLAN SUPPORTIVE CARE HOSPICE PLANS NOTED WILL SIGN OFF CLAUDIA DIAZ MD Jul 29, 2016 11:24
[2016-07-29] MEDS ORDERED: ACETAMINOPHEN 325 MG SUPP.RECT. PR PRN (13:45)
--- NOTE | 2016-07-30 03:48 | DS ---
DATE OF DISCHARGE: 07/29/2016 DISCHARGE DIAGNOSES: 1. Left upper chest and arm cellulitis. 2. Acute kidney injury, vasomotor nephropathy. 3. Hypoxic respiratory failure. 4. Physical weakness and debility. 5. Dysphagia. 6. Dementia. BRIEF HOSPITAL COURSE: An 85-year-old female patient admitted to the hospital by Dr. George for cellulitis of the upper chest and arm. The patient is ill for nearly 7 years. Reportedly, the patient was on hospice in the past; however, at this time, she reportedly has a history of dysphagia. She was evaluated by several consulting physicians such as Dr. Napier, Dr. Molina, and Dr. Ryan Epps. Given her comorbid conditions and current clinical condition and overall long-term prognosis, hospice has been recommended, and the patient and family members discussed The patient's DPOA, Jhoana, met with palliative team who agreed with current recommendations, such as home with home hospice. The patient is currently DNR/DNI. DISCHARGE EXAMINATION: GENERAL: Alert, oriented times 2. HEART: S1, S2 present. CHEST: Anterior chest clear. ABDOMEN: Soft, nontender. EXTREMITIES: No edema. DISCHARGE DISPOSITION: Home with home hospice. DISCHARGE MEDICATIONS: Reviewed and reconciled. Please see MRAD. Total time spent for discharge is 35 minutes for patient education, counseling, and coordination of care. ANDREA BALTAZAR MD DR: LILIAM/vandana JOB#: [id number] / [id number] GURINDER
== END 2016-07-29 14:45 | disposition hospice, home (50) | DRG 871 ==
LOC: 5 NORTH 20:21
PROVIDERS: ADMIT Internal Medicine; ATTEND Internal Medicine
DX: A41.9 Sepsis, unspecified organism (principal); N17.0 Acute kidney failure with tubular necrosis; J96.01 Acute respiratory failure with hypoxia; I13.0 Hypertensive heart and chronic kidney disease with heart failure and stage 1 through stage 4 chronic kidney disease, or unspecified chronic kidney disease; L03.113 Cellulitis of right upper limb; L03.313 Cellulitis of chest wall; N18.5 Chronic kidney disease, stage 5; R47.01 Aphasia; B37.9 Candidiasis, unspecified; D64.9 Anemia, unspecified; E11.22 Type 2 diabetes mellitus with diabetic chronic kidney disease; E87.5 Hyperkalemia; F03.90 Unspecified dementia, unspecified severity, without behavioral disturbance, psychotic disturbance, mood disturbance, and anxiety; F32.9 Major depressive disorder, single episode, unspecified; F41.9 Anxiety disorder, unspecified; I25.10 Atherosclerotic heart disease of native coronary artery without angina pectoris; I25.5 Ischemic cardiomyopathy; I50.9 Heart failure, unspecified; I80.8 Phlebitis and thrombophlebitis of other sites; J44.9 Chronic obstructive pulmonary disease, unspecified; J45.909 Unspecified asthma, uncomplicated; K21.9 Gastro-esophageal reflux disease without esophagitis; R13.12 Dysphagia, oropharyngeal phase; Z51.5 Encounter for palliative care; Z66 Do not resuscitate; Z99.2 Dependence on renal dialysis
CPT/HCPCS: 36415; 70450; 71010; 80053; 80069; 80074; 80202; 82553; 82575; 82728; 82947; 83036; 83540; 83550; 83735; 83970; 84134; 84156; 84484; 85027; 85045; 86704; 86706; 87641; 93005; 93971; 94640; 94760; C9113; J0881; J1815; J2270; J2543; J3370; J3490; J7030; J7042; J7050; J7620; 92610

== ENCOUNTER 2017-04-14 15:39 | Inpatient (IN) | payer OTHER ==
[~2017-04-14] VITALS: Ht 139.7 cm; Wt 42.2 kg
[~2017-04-14 15:39] MED LIST: ACET325T9 PO; CLOT15CR4 TP; ESCITALOPRAM OX10 MG PO; FURO20TA3 PO; GABA-585 PO; HYDR-2758 PO; NYST100054 PO
[2017-04-14 18:30] VITALS: BP 122/53
[2017-04-14] MEDS ORDERED: MAGNESIUM HYDROXIDE 2,400 MG/30 ML ORAL.SUSP. PO PRN (18:45)
[2017-04-14] MEDS ORDERED: fentaNYL PF VIAL 100 MCG/2 ML VIAL IV PRN (18:45)
[2017-04-14] MEDS ORDERED: PROCHLORPERAZINE 10 MG/2 ML VIAL. IV PRN (18:45)
[2017-04-14] MEDS ORDERED: BISACODYL 10 MG SUPP.RECT. PR PRN (18:45)
[2017-04-14] MEDS ORDERED: MAG HYDROX/ALUMINUM HYD/SIMETH 30 ML ORAL.SUSP PO PRN (18:45)
[2017-04-14] MEDS ORDERED: oxyCODONE IR 5 MG TABLET PO PRN (18:45)
[2017-04-14] MEDS ORDERED: PROCHLORPERAZINE 25 MG SUPP.RECT. PR PRN (18:45)
[2017-04-14] MEDS ORDERED: ACETAMINOPHEN 325 MG TABLET. PO PRN (18:45)
[2017-04-14] MEDS ORDERED: CALCIUM CARBONATE 500 MG TAB.CHEW PO PRN (18:45)
[2017-04-14] MEDS ORDERED: HYDROcodone/APAP 5/325MG 1 TAB TABLET PO PRN (18:45)
[2017-04-14] MEDS ORDERED: ONDANSETRON PF 4 MG/2 ML VIAL. IV PRN (18:45)
--- NOTE | 2017-04-14 18:53 | PDOC1 ---
History and Physical Date of Admission Date of Admission DATE: 04/14/17 TIME: 18:47 Identification/Chief Complaint Chief Complaint Slid from her chair Problems: Source Source: Caregiver, Chart review, Patient History of Present Illness History of Present Illness 86-year-old female, SNU resident, DNR/DNI, on hospice, lots of comorbidities including nonverbal since childhood, ESRD. previously on dialysis not anymore, legal blindness, anxiety disorder, localized edema, aphasia, KIMBERLY, major falls, vitamin D deficiency, major depression, hypertensive heart disease , CHF, hypotension etc. slid from her Broda chair today suffered a mechanical fall, broke her hip. Transferred from [place] to here for planned surgery. Family wants surgery to be done to the patient. Patient is a DNR/DNI. DPOA is a daughter. Not at bedside. Very high risk patient given age and comorbidities. I will consult cardiology. So far vital signs remain stable. Patient denies being pain. Correction she is not nonverbal she is just minimal verbal output secondary to multifactorial dementia etc. discussed with EVER Brewster Past Medical History Cardiovascular: CAD, CHF, HTN Pulmonary: Asthma, Bronchitis, COPD GI: GERD Heme/Onc: No pertinent hx Hepatobiliary: No pertinent hx Psych: Depression Renal/: Chronic renal insuff, Acute renal failure Endocrine: Diabetes Past Surgical History Past Surgical History: No pertinent history Family History Family History: No Significant, Family History Unknown Social History Smoke: No ALCOHOL: none Drugs: None Current Medications Current Medications Current Medications Sodium Chloride 1,000 ml @ 75 mls/hr [id number] IV ; Start 04/14/17 at 18:31 Ondansetron HCl (Zofran) 4 mg PRN Q6HRS PRN IV NAUSEA/VOMITING; Start at 18:45 Prochlorperazine Edisylate (Compazine) 10 mg PRN Q6HRS PRN IV NAUSEA/VOMITING; Start 04/14/17 at 18:45 Prochlorperazine (Compazine) 25 mg PRN Q12HR PRN [place] NAUSEA/VOMITING; Start 04/19 at 18:45 Al Hydroxide/Mg Hydroxide (Mylanta Plus Xs) 30 ml PRN Q3HRS PRN PO HEARTBURN / GAS; Start 04/14/17 at 18:45 Calcium Carbonate/ Glycine (Tums) 500 mg PRN Q3HRS PRN PO UPSET STOMACH; Start 04/14/17 at 18:45 Oxycodone HCl (Roxicodone) 5 mg PRN Q3HRS PRN PO BREAKTHROUGH PAIN; Start 04/19 at 18:45 Morphine Sulfate 1 mg PRN Q1HR PRN IV PAIN; Start 04/14/17 at 18:45 Oxycodone/ Acetaminophen (Percocet 5/325) 1 tab PRN Q4HRS PRN PO MILD PAIN, 2ND CHOICE; Start 04/14/17 at 18:45 Acetaminophen (Tylenol) 650 mg PRN Q6HRS PRN PO Headaches, Temp > 101.5F; Start 04/14/17 at 18:45 Docusate Sodium (Colace) 100 mg BID PO ; Start 04/14/17 at 21:00 Magnesium Hydroxide (Milk Of Magnesia) 2,400 mg PRN Q12HR PRN PO CONSTIPATION; Start 04/14/17 at 18:45 Bisacodyl (Dulcolax Supp) 10 mg PRN DAILY PRN [place] CONSTIPATION; Start 04/14/17 at 18:45 Enoxaparin Sodium (Lovenox 40mg Syringe) 40 mg Q24H SQ ; Start 04/14/17 at 21: 00; Status UNV Fentanyl Citrate (Fentanyl 2ml Vial) 50 mcg PRN Q2HR PRN IV PAIN; Start at 18:45 Clotrimazole (Lotrimin) 1 kizzy BID TP ; Start 04/14/17 at 21:00 Furosemide (Lasix) 20 mg DAILY PO ; Start 04/15/17 at 09:00 Gabapentin (Neurontin) 100 mg TID PO ; Start 04/14/17 at 21:00 Acetaminophen/ Hydrocodone Bitart (Lortab 5/325) 1 tab PRN TID PRN PO PAIN; Start 04/14/17 at 18:45 Citalopram Hydrobromide (CeleXA) 20 mg DAILY PO ; Start 04/15/17 at 09:00 Nystatin 5 ml [id number] ; Start 04/14/17 at 21:00 Active Scripts Active Reported Nystatin 100,000 Unit/1 Ml Oral.susp 5 Ml PO QID Hydrocodone-Apap 5-325 (Hydrocodone Bit/Acetaminophen) 1 Each Tablet 1 Tab PO TID PRN Clotrimazole 15 Gm Cream..g. 1 Kizzy TP BID Escitalopram Oxalate 10 Mg Tablet 1 Tab PO DAILY Gabapentin 100 Mg Capsule 100 Mg PO TID Furosemide 20 Mg Tablet 1 Tab PO DAILY Tylenol (Acetaminophen) 325 Mg Tablet 1 Tab PO PRN Q4HRS Allergies Allergies: Coded Allergies: I S O L A T I O N *CONTACT* (Verified Allergy, Unknown, 07/28/16) +MRSA nares 07/25/2016 No Known Medication Allergies (Verified Allergy, Unknown, 07/28/16) ROS Review of System Minimal, secondary to dementia Physical Exam Physical Exam Physical Exam General: Alert, Oriented X3, Cooperative, No acute distress HEENT: Atraumatic, PERRLA Lungs: Normal air movement, Other (wheezy) Heart: S1S2, RRR, no thrills, no gallops, no murmurs Cardiovascular: S1, S2 Abdomen: Normal bowel sounds, Soft, No tenderness, No hepatosplenomegaly, No masses, Other (obese) Rectal Exam: not examined PELVIC: Nml ext genitalia Extremities: No rashes, no edema, pulses full and equal, externally rotated left leg Skin: Enough skin turgor, minimal subcutaneous tissue, Neuro: Normal gait, Normal speech, Strength at 5/5 X4 ext, Normal tone, Sensation intact, Cranial nerves 3-12 NL, Reflexes 2+ Psych/Mental Status: Mental status NL, Mood NL VTE Prophylaxis Ordered VTE Prophylaxis Devices: Yes VTE Pharmacological Prophylaxi: Yes Assessment/Plan Assessment/Plan Left femoral neck fracture DNR/DNI Significant dementia Hypertension, hypertensive heart disease, history of hypertension, ESRD. Dialysis not anymore, CAD stage V, anemia of chronic disease, Legally blind Anxiety NOS Chronic pain History of hyperkalemia Constipation History of false neck GERD COPD stable Superficial candidiasis Plan of care:, Mid 2 midnights Nothing by mouth post midnight, gentle IVF while nothing by mouth orthopedics consult. I will consult cardiology cardiology just for preop clearance as patient is high risk, discussed with EVER Brewster, DNR/DNI, continue home meds - I have reconciled social work for discharge planning - will go back on hospice DNR/DNI, to SNU on dc Control pain Supportive meds Nystatin power to intertriginous areas HORTENSIA COLVIN MD Apr 14, 2017 18:53
[2017-04-14] MEDS ORDERED: ENOXAPARIN 30 MG/0.3 ML SYRINGE. SQ SCH (21:00)
[2017-04-14] MEDS: GABAPENTIN 100 MG CAPSULE. PO SCH (21:00)
[2017-04-14] MEDS: NYSTATIN 100,000 UNITS/ML 5 ML ORAL.SUSP. SWSW SCH ×2 (21:00→22:54)
[2017-04-14] MEDS: DOCUSATE SODIUM 100 MG CAPSULE. PO SCH (21:00)
[2017-04-14] MEDS: IV 1/2 NORMAL SALINE 1,000 ML IV SCH (21:23)
[2017-04-14] MEDS: oxyCODONE/APAP 5/325 1 TAB TABLET PO PRN (22:54)
[2017-04-14] MEDS: NYSTATIN TOPICAL POWDER 15GM BOTTLE. TP SCH (22:54)
[2017-04-14 23:00] VITALS: BP 145/72
[2017-04-15 03:00] VITALS: BP 81/44
[2017-04-15 03:39] VITALS: BP 97/46
[2017-04-15] MEDS: MORPHINE SULFATE 2 MG/ML DISP.SYRIN. IV PRN ×3 (04:10→13:14)
[2017-04-15] MEDS ORDERED: CARB15DR3 EACHEYE (04:21)
[2017-04-15] MEDS ORDERED: SODI15OR6 PO (04:21)
[2017-04-15] MEDS ORDERED: IPRA3AMP NEB (04:21)
[2017-04-15] MEDS ORDERED: HYOS0.1264 PO (04:21)
[2017-04-15] MEDS ORDERED: ZINC220T PO (04:21)
[2017-04-15] MEDS ORDERED: ALPR0.25 PO (04:21)
[2017-04-15 05:40] LABS: BASO % 0 % (0-3); EOS % 0 % (0-3); HEMATOCRIT 31.6 % (36.0-47.0); HEMOGLOBIN 10.1 g/dL (12.0-15.5); LYMPH # 1.8 x10^3/uL (1.0-4.8); LYMPH % 21 % (24-48); MEAN CORPUSCULAR HEMOGLOBIN 33 pg (25-35); MEAN CORPUSCULAR HGB CONC 32 g/dL (31-37); MEAN CORPUSCULAR VOLUME 102 fL (79-100); MONO % 11 % (0-9); NEUT % 67 % (31-73); PLATELET COUNT 154 x10^3/uL (140-400); RED CELL DISTRIBUTION WIDTH 13.1 % (11.5-14.5); WHITE BLOOD COUNT 8.3 x10^3/uL (4.0-11.0)
[2017-04-15 05:45] LABS: INR 1.2 (0.8-1.1); PROTHROMBIN TIME PATIENT 14.5 SEC (11.7-14.0)
[2017-04-15 06:00] LABS: CALCIUM 7.9 mg/dL (8.5-10.1); GFR 23.6; POTASSIUM 4.3 mmol/L (3.5-5.1)
[2017-04-15 07:00] VITALS: BP 105/54
[2017-04-15] MEDS: IV 1/2 NORMAL SALINE 1,000 ML IV SCH (07:51)
[2017-04-15] MEDS ORDERED: CLOTRIMAZOLE 1% TOPICAL CREAM 15GM TUBE. TP SCH (09:00)
[2017-04-15] MEDS: NYSTATIN TOPICAL POWDER 15GM BOTTLE. TP SCH (09:00)
[2017-04-15] MEDS ORDERED: CITALOPRAM 20 MG TABLET. PO SCH (09:00)
[2017-04-15] MEDS ORDERED: FUROSEMIDE 20 MG TABLET PO SCH (09:00)
[2017-04-15] MEDS: NYSTATIN 100,000 UNITS/ML 5 ML ORAL.SUSP. SWSW SCH ×2 (09:02→12:31)
[2017-04-15] MEDS: GABAPENTIN 100 MG CAPSULE. PO SCH ×2 (09:03→12:31)
[2017-04-15] MEDS: DOCUSATE SODIUM 100 MG CAPSULE. PO SCH (09:03)
[2017-04-15] MEDS: oxyCODONE/APAP 5/325 1 TAB TABLET PO PRN (09:03)
--- NOTE | 2017-04-15 11:23 | PDOC ---
PROGRESS NOTES Chief Complaint Chief Complaint Left femoral neck fracture DNR/DNI Significant dementia Hypertension, hypertensive heart disease, history of hypertension, ESRD. Dialysis not anymore, CAD stage V, anemia of chronic disease, Legally blind Anxiety NOS Chronic pain History of hyperkalemia Constipation History of false neck GERD COPD stable Superficial candidiasis History of Present Illness History of Present Illness Niece, who is a DPOA is at bedside currently. I was told that family was pushing for surgery But niece is now thinking otherwise. As per RN patient can be in pain some times she just bursts out in pain she would give IV pain medicines. There is a dysphagia diet at bedside. Vitamin D levels are still pending. She is basically bedbound in the senior living minimal transfers. DNR/DNI currently on hospice. Orthopedics was aware of the consult from [facility] ER level, we will await for them to have a conversation with the DPOA then we can proceed with plans accordingly. Discussed with EVER Ferrara. Vitals Vitals Vital Signs Date Time Temp Pulse Resp B/P (MAP) Pulse Ox O2 Delivery O2 Flow Rate FiO2 04/15/17 10:16 Nasal Cannula 3.0 04/15/17 07:00 97.9 96 17 105/54 (71) 96 97.9 Physical Exam General: No acute distress, Other (minimally verbal) Heart: Regular rate, Normal S1, Normal S2 Lungs: Crackles Extremities: No clubbing, Other (lower extremity externally rotated) Skin: No rashes, No breakdown, Other (senile skin turgor) Labs LABS Laboratory Tests Test 04/15/17 04:15 04/15/17 04:25 04/15/17 05:00 04/15/17 07:41 Sodium Level 141 mmol/L (136-145) Potassium Level 4.3 mmol/L (3.5-5.1) Chloride Level 104 mmol/L (98-107) Carbon Dioxide Level 28 mmol/L (21-32) Anion Gap 9 (6-14) Blood Urea Nitrogen 25 mg/dL (7-20) Creatinine 2.0 mg/dL (0.6-1.0) Estimated GFR (Cockcroft-Gault) 23.6 Glucose Level 111 mg/dL (70-99) Calcium Level 7.9 mg/dL (8.5-10.1) White Blood Count 8.3 x10^3/uL (4.0-11.0) Red Blood Count 3.10 x10^6/uL (3.50-5.40) Hemoglobin 10.1 g/dL (12.0-15.5) Hematocrit 31.6 % (36.0-47.0) Mean Corpuscular Volume 102 fL (79-100) Mean Corpuscular Hemoglobin 33 pg (25-35) Mean Corpuscular Hemoglobin Concent 32 g/dL (31-37) Red Cell Distribution Width 13.1 % (11.5-14.5) Platelet Count 154 x10^3/uL (140-400) Neutrophils (%) (Auto) 67 % (31-73) Lymphocytes (%) (Auto) 21 % (24-48) Monocytes (%) (Auto) 11 % (0-9) Eosinophils (%) (Auto) 0 % (0-3) Basophils (%) (Auto) 0 % (0-3) Neutrophils # (Auto) 5.5 x10^3uL (1.8-7.7) Lymphocytes # (Auto) 1.8 x10^3/uL (1.0-4.8) Monocytes # (Auto) 0.9 x10^3/uL (0.0-1.1) Eosinophils # (Auto) 0.0 x10^3/uL (0.0-0.7) Basophils # (Auto) 0.0 x10^3/uL (0.0-0.2) Prothrombin Time 14.5 SEC (11.7-14.0) Prothromb Time International Ratio 1.2 (0.8-1.1) 25-Hydroxy Vitamin D Total 24.4 ng/mL (30-100) Glucose (Fingerstick) 110 mg/dL (70-99) Review of Systems Review of Systems Has dementia, minimally verbal hence limited ROS. Comment Review of Relevant I have reviewed the following items anne-marie (where applicable) has been applied. Labs Laboratory Tests Test 04/15/17 04:15 04/15/17 04:25 04/15/17 05:00 04/15/17 07:41 Sodium Level 141 mmol/L (136-145) Potassium Level 4.3 mmol/L (3.5-5.1) Chloride Level 104 mmol/L (98-107) Carbon Dioxide Level 28 mmol/L (21-32) Anion Gap 9 (6-14) Blood Urea Nitrogen 25 mg/dL (7-20) Creatinine 2.0 mg/dL (0.6-1.0) Estimated GFR (Cockcroft-Gault) 23.6 Glucose Level 111 mg/dL (70-99) Calcium Level 7.9 mg/dL (8.5-10.1) White Blood Count 8.3 x10^3/uL (4.0-11.0) Red Blood Count 3.10 x10^6/uL (3.50-5.40) Hemoglobin 10.1 g/dL (12.0-15.5) Hematocrit 31.6 % (36.0-47.0) Mean Corpuscular Volume 102 fL (79-100) Mean Corpuscular Hemoglobin 33 pg (25-35) Mean Corpuscular Hemoglobin Concent 32 g/dL (31-37) Red Cell Distribution Width 13.1 % (11.5-14.5) Platelet Count 154 x10^3/uL (140-400) Neutrophils (%) (Auto) 67 % (31-73) Lymphocytes (%) (Auto) 21 % (24-48) Monocytes (%) (Auto) 11 % (0-9) Eosinophils (%) (Auto) 0 % (0-3) Basophils (%) (Auto) 0 % (0-3) Neutrophils # (Auto) 5.5 x10^3uL (1.8-7.7) Lymphocytes # (Auto) 1.8 x10^3/uL (1.0-4.8) Monocytes # (Auto) 0.9 x10^3/uL (0.0-1.1) Eosinophils # (Auto) 0.0 x10^3/uL (0.0-0.7) Basophils # (Auto) 0.0 x10^3/uL (0.0-0.2) Prothrombin Time 14.5 SEC (11.7-14.0) Prothromb Time International Ratio 1.2 (0.8-1.1) 25-Hydroxy Vitamin D Total 24.4 ng/mL (30-100) Glucose (Fingerstick) 110 mg/dL (70-99) Laboratory Tests Test 04/15/17 04:15 04/15/17 04:25 04/15/17 05:00 04/15/17 07:41 Sodium Level 141 mmol/L (136-145) Potassium Level 4.3 mmol/L (3.5-5.1) Chloride Level 104 mmol/L (98-107) Carbon Dioxide Level 28 mmol/L (21-32) Anion Gap 9 (6-14) Blood Urea Nitrogen 25 mg/dL (7-20) Creatinine 2.0 mg/dL (0.6-1.0) Estimated GFR (Cockcroft-Gault) 23.6 Glucose Level 111 mg/dL (70-99) Calcium Level 7.9 mg/dL (8.5-10.1) White Blood Count 8.3 x10^3/uL (4.0-11.0) Red Blood Count 3.10 x10^6/uL (3.50-5.40) Hemoglobin 10.1 g/dL (12.0-15.5) Hematocrit 31.6 % (36.0-47.0) Mean Corpuscular Volume 102 fL (79-100) Mean Corpuscular Hemoglobin 33 pg (25-35) Mean Corpuscular Hemoglobin Concent 32 g/dL (31-37) Red Cell Distribution Width 13.1 % (11.5-14.5) Platelet Count 154 x10^3/uL (140-400) Neutrophils (%) (Auto) 67 % (31-73) Lymphocytes (%) (Auto) 21 % (24-48) Monocytes (%) (Auto) 11 % (0-9) Eosinophils (%) (Auto) 0 % (0-3) Basophils (%) (Auto) 0 % (0-3) Neutrophils # (Auto) 5.5 x10^3uL (1.8-7.7) Lymphocytes # (Auto) 1.8 x10^3/uL (1.0-4.8) Monocytes # (Auto) 0.9 x10^3/uL (0.0-1.1) Eosinophils # (Auto) 0.0 x10^3/uL (0.0-0.7) Basophils # (Auto) 0.0 x10^3/uL (0.0-0.2) Prothrombin Time 14.5 SEC (11.7-14.0) Prothromb Time International Ratio 1.2 (0.8-1.1) 25-Hydroxy Vitamin D Total 24.4 ng/mL (30-100) Glucose (Fingerstick) 110 mg/dL (70-99) Medications Current Medications Sodium Chloride 1,000 ml @ 75 mls/hr [id number] IV Last administered on 07:51; Start 04/14/17 at 18:31 Ondansetron HCl (Zofran) 4 mg PRN Q6HRS PRN IV NAUSEA/VOMITING; Start at 18:45 Prochlorperazine Edisylate (Compazine) 10 mg PRN Q6HRS PRN IV NAUSEA/VOMITING; Start 04/14/17 at 18:45 Prochlorperazine (Compazine) 25 mg PRN Q12HR PRN [place] NAUSEA/VOMITING; Start 04/19 at 18:45 Al Hydroxide/Mg Hydroxide (Mylanta Plus Xs) 30 ml PRN Q3HRS PRN PO HEARTBURN / GAS; Start 04/14/17 at 18:45 Calcium Carbonate/ Glycine (Tums) 500 mg PRN Q3HRS PRN PO UPSET STOMACH; Start 04/14/17 at 18:45 Oxycodone HCl (Roxicodone) 5 mg PRN Q3HRS PRN PO BREAKTHROUGH PAIN; Start 04/19 at 18:45 Morphine Sulfate 1 mg PRN Q1HR PRN IV PAIN Last administered on 04/15/17 05: 57; Start 04/14/17 at 18:45 Oxycodone/ Acetaminophen (Percocet 5/325) 1 tab PRN Q4HRS PRN PO MILD PAIN, 2ND CHOICE Last administered on 04/15/17 09:03; Start 04/14/17 at 18:45 Acetaminophen (Tylenol) 650 mg PRN Q6HRS PRN PO Headaches, Temp > 101.5F; Start 04/14/17 at 18:45 Docusate Sodium (Colace) 100 mg BID PO Last administered on 04/15/17 09:03; Start 04/14/17 at 21:00 Magnesium Hydroxide (Milk Of Magnesia) 2,400 mg PRN Q12HR PRN PO CONSTIPATION; Start 04/14/17 at 18:45 Bisacodyl (Dulcolax Supp) 10 mg PRN DAILY PRN [place] CONSTIPATION; Start 04/14/17 at 18:45 Enoxaparin Sodium (Lovenox 30mg Syringe) 30 mg Q24H SQ ; Start 04/14/17 at 21: 00 Fentanyl Citrate (Fentanyl 2ml Vial) 50 mcg PRN Q2HR PRN IV PAIN Last administered on 04/15/17 00:37; Start 04/14/17 at 18:45 Clotrimazole (Lotrimin) 1 kizzy BID TP Last administered on 04/15/17 09:00; Start 04/15/17 at 09:00 Furosemide (Lasix) 20 mg DAILY PO Last administered on 04/15/17 09:03; Start 04/15/17 at 09:00 Gabapentin (Neurontin) 100 mg TID PO Last administered on 04/15/17 09:03; Start 04/14/17 at 21:00 Acetaminophen/ Hydrocodone Bitart (Lortab 5/325) 1 tab PRN TID PRN PO PAIN; Start 04/14/17 at 18:45 Citalopram Hydrobromide (CeleXA) 20 mg DAILY PO Last administered on 09:03; Start 04/15/17 at 09:00 Nystatin 5 ml [id number] Last administered on 04/15/17 09:02; Start at 21:00 Nystatin (Nystop) 1 kizzy BID TP Last administered on 04/15/17 09:00; Start at 21:00 Active Scripts Active Reported Levsin (Hyoscyamine Sulfate) 0.125 Mg Tablet 1 Tab PO Q2HR Duoneb 0.5-3(2.5) Mg/3 Ml (Albuterol/Ipratropium) 3 Ml Ampul.neb 3 Ml NEB Q6HRS Zinc Sulfate 220 Mg Tablet 220 Mg PO DAILY Xanax (Alprazolam) 0.25 Mg Tablet 1 Tab PO Q8HRS Sps (Sodium Polystyrene Sulfonate) 15 Gm/60 Ml Oral.susp 30 Ml PO BID Refresh Optive Eye Drops (Carboxymethylcellulos/Glycerin) 15 Ml Drops 1 Drop EACHEYE BID Nystatin 100,000 Unit/1 Ml Oral.susp 5 Ml PO QID Hydrocodone-Apap 5-325 (Hydrocodone Bit/Acetaminophen) 1 Each Tablet 1 Tab PO TID PRN Clotrimazole 15 Gm Cream..g. 1 Kizzy TP BID Escitalopram Oxalate 10 Mg Tablet 1 Tab PO DAILY Gabapentin 100 Mg Capsule 100 Mg PO TID Furosemide 20 Mg Tablet 1 Tab PO DAILY Tylenol (Acetaminophen) 325 Mg Tablet 1 Tab PO PRN Q4HRS Vitals/I & O Vital Sign - Last 24 Hours 04/14/17 04/14/17 04/14/17 04/14/17 18:30 19:00 20:00 22:54 Temp 98.8 98.8 Pulse 77 Resp 18 18 B/P (MAP) 122/53 (76) Pulse Ox 90 O2 Delivery Nasal Cannula Nasal Cannula Nasal Cannula Nasal Cannula O2 Flow Rate 2.0 2.0 2.0 2.0 04/14/17 04/14/17 04/15/17 04/15/17 23:00 23:54 00:37 01:07 Temp 100.6 100.6 Pulse 87 Resp 18 18 18 18 B/P (MAP) 145/72 (96) Pulse Ox 96 96 O2 Delivery Nasal Cannula Nasal Cannula Nasal Cannula O2 Flow Rate 2.0 2.0 3.0 04/15/17 04/15/17 04/15/17 04/15/17 03:00 03:39 04:10 05:57 Temp 100.0 100.0 Pulse 86 89 Resp 18 18 18 B/P (MAP) 81/44 (56) 97/46 (63) Pulse Ox 95 95 95 O2 Delivery Nasal Cannula Nasal Cannula Nasal Cannula O2 Flow Rate 3.0 3.0 3.0 04/15/17 04/15/17 04/15/17 04/15/17 06:27 07:00 08:15 09:03 Temp 97.9 97.9 Pulse 96 Resp B/P (MAP) 105/54 (71) Pulse Ox 95 96 O2 Delivery Nasal Cannula Nasal Cannula Nasal Cannula Nasal Cannula O2 Flow Rate 3.0 3.0 3.0 3.0 04/15/17 10:16 O2 Delivery Nasal Cannula O2 Flow Rate 3.0 Intake and Output 04/14/17 04/14/17 04/15/17 15:00 23:00 07:00 Intake Total 558 ml Output Total 150 ml 50 ml Balance -150 ml 508 ml HORTENSIA COLVIN MD Apr 15, 2017 11:22
[2017-04-15 11:25] VITALS: BP 108/51
--- NOTE | 2017-04-15 11:51 | PDOC3 ---
Discharge Summary Visit Information Date of Admission: Apr 14, 2017 Date of Discharge: Apr 15, 2017 Brief Hospital Course Allergies Allergies Coded Allergies Type Severity Reaction Last Updated Verified I S O L A T I O N *CONTACT* Allergy Unknown 07/28/16 Yes No Known Medication Allergies Allergy Unknown 07/28/16 Yes Vital Signs Vital Signs Date Time Temp Pulse Resp B/P (MAP) Pulse Ox O2 Delivery O2 Flow Rate FiO2 04/15/17 11:25 100.0 77 20 108/51 (70) 94 Nasal Cannula 2.0 100.0 Lab Results Laboratory Tests Test 04/15/17 04:15 04/15/17 04:25 04/15/17 05:00 04/15/17 07:41 Sodium Level 141 mmol/L (136-145) Potassium Level 4.3 mmol/L (3.5-5.1) Chloride Level 104 mmol/L (98-107) Carbon Dioxide Level 28 mmol/L (21-32) Anion Gap 9 (6-14) Blood Urea Nitrogen 25 mg/dL (7-20) Creatinine 2.0 mg/dL (0.6-1.0) Estimated GFR (Cockcroft-Gault) 23.6 Glucose Level 111 mg/dL (70-99) Calcium Level 7.9 mg/dL (8.5-10.1) White Blood Count 8.3 x10^3/uL (4.0-11.0) Red Blood Count 3.10 x10^6/uL (3.50-5.40) Hemoglobin 10.1 g/dL (12.0-15.5) Hematocrit 31.6 % (36.0-47.0) Mean Corpuscular Volume 102 fL (79-100) Mean Corpuscular Hemoglobin 33 pg (25-35) Mean Corpuscular Hemoglobin Concent 32 g/dL (31-37) Red Cell Distribution Width 13.1 % (11.5-14.5) Platelet Count 154 x10^3/uL (140-400) Neutrophils (%) (Auto) 67 % (31-73) Lymphocytes (%) (Auto) 21 % (24-48) Monocytes (%) (Auto) 11 % (0-9) Eosinophils (%) (Auto) 0 % (0-3) Basophils (%) (Auto) 0 % (0-3) Neutrophils # (Auto) 5.5 x10^3uL (1.8-7.7) Lymphocytes # (Auto) 1.8 x10^3/uL (1.0-4.8) Monocytes # (Auto) 0.9 x10^3/uL (0.0-1.1) Eosinophils # (Auto) 0.0 x10^3/uL (0.0-0.7) Basophils # (Auto) 0.0 x10^3/uL (0.0-0.2) Prothrombin Time 14.5 SEC (11.7-14.0) Prothromb Time International Ratio 1.2 (0.8-1.1) 25-Hydroxy Vitamin D Total 24.4 ng/mL (30-100) Glucose (Fingerstick) 110 mg/dL (70-99) Test 04/15/17 11:38 Glucose (Fingerstick) 103 mg/dL (70-99) Laboratory Tests Test 04/15/17 04:15 04/15/17 04:25 04/15/17 05:00 04/15/17 07:41 Sodium Level 141 mmol/L (136-145) Potassium Level 4.3 mmol/L (3.5-5.1) Chloride Level 104 mmol/L (98-107) Carbon Dioxide Level 28 mmol/L (21-32) Anion Gap 9 (6-14) Blood Urea Nitrogen 25 mg/dL (7-20) Creatinine 2.0 mg/dL (0.6-1.0) Estimated GFR (Cockcroft-Gault) 23.6 Glucose Level 111 mg/dL (70-99) Calcium Level 7.9 mg/dL (8.5-10.1) White Blood Count 8.3 x10^3/uL (4.0-11.0) Red Blood Count 3.10 x10^6/uL (3.50-5.40) Hemoglobin 10.1 g/dL (12.0-15.5) Hematocrit 31.6 % (36.0-47.0) Mean Corpuscular Volume 102 fL (79-100) Mean Corpuscular Hemoglobin 33 pg (25-35) Mean Corpuscular Hemoglobin Concent 32 g/dL (31-37) Red Cell Distribution Width 13.1 % (11.5-14.5) Platelet Count 154 x10^3/uL (140-400) Neutrophils (%) (Auto) 67 % (31-73) Lymphocytes (%) (Auto) 21 % (24-48) Monocytes (%) (Auto) 11 % (0-9) Eosinophils (%) (Auto) 0 % (0-3) Basophils (%) (Auto) 0 % (0-3) Neutrophils # (Auto) 5.5 x10^3uL (1.8-7.7) Lymphocytes # (Auto) 1.8 x10^3/uL (1.0-4.8) Monocytes # (Auto) 0.9 x10^3/uL (0.0-1.1) Eosinophils # (Auto) 0.0 x10^3/uL (0.0-0.7) Basophils # (Auto) 0.0 x10^3/uL (0.0-0.2) Prothrombin Time 14.5 SEC (11.7-14.0) Prothromb Time International Ratio 1.2 (0.8-1.1) 25-Hydroxy Vitamin D Total 24.4 ng/mL (30-100) Glucose (Fingerstick) 110 mg/dL (70-99) Test 04/15/17 11:38 Glucose (Fingerstick) 103 mg/dL (70-99) Brief Hospital Course Ms. Brown is a 86 old demented, lady, SNU resident, was on hospice , DNR DNI, slid from her Broda chair and sustained left fem neck fx, NO operation advised, lost of co morbids, Dw DPOA, niece, Agreeable, Ortho was Dr. Escamilla Seen and examined 2 notes today PAin med Rx. MAR inc amado BAck to SNU on hospice on dc Discharge Information Condition at Discharge: Stable Disposition/Orders: D/C to Another Facility Scheduled Acetaminophen (Tylenol), 1 TAB PO PRN Q4HRS, (Reported) Alprazolam (Xanax), 1 TAB PO Q8HRS, (Reported) Carboxymethylcellulos/Glycerin (Refresh Optive Eye Drops), 1 DROP EACHEYE BID, ( Reported) Clotrimazole (Clotrimazole), 1 TUSHAR TP BID, (Reported) Escitalopram Oxalate (Escitalopram Oxalate), 1 TAB PO DAILY, (Reported) Furosemide (Furosemide), 1 TAB PO DAILY, (Reported) Gabapentin (Gabapentin), 100 MG PO TID, (Reported) Hyoscyamine Sulfate (Levsin), 1 TAB PO Q2HR, (Reported) Ipratropium/Albuterol Sulfate (Duoneb 0.5-3(2.5) Mg/3 Ml), 3 ML NEB Q6HRS, ( Reported) Nystatin (Nystatin), 5 ML PO QID, (Reported) Sodium Polystyrene Sulfonate (Sps), 30 ML PO BID, (Reported) Zinc Sulfate (Zinc Sulfate), 220 MG PO DAILY, (Reported) Scheduled PRN Hydrocodone Bit/Acetaminophen (Hydrocodone-Apap 5-325 ), 1 TAB PO TID PRN for PAIN, (Reported) HORTENSIA COLVIN MD Apr 15, 2017 11:51
[2017-04-15] MEDS ORDERED: ERGOCALCIFEROL (VITAMIN D2) 50,000 UNIT CAPSULE. PO SCH (12:00)
--- NOTE | 2017-04-15 20:31 | PDOC2 ---
CONSULT Date of Consult Date of Consult DATE: 04/15/17 TIME: 20:22 Reason for Consult Reason for Consult: left hip fracture Identification/Chief Complaint Chief Complaint left hip pain Problems: (1) Closed left hip fracture Source Source: Caregiver, Chart review, Unable to obtain due to (dementia) History of Present Illness Reason for Visit: The patient is an 86 year old female with multiple medical problems and dementia on hospice who fell transferring to a chair. She has sustained a left displaced femoral neck fracture. She was transferred from [facility] to discuss possible surgical treatment of her hip fracture. Her niece is her DPOA and I spoke to her on the phone earlier today. We discussed Ms. Brown's meidcal comorbidities and operative versus nonoperative treatment. After an extensive discussion the niece determined that she did not want to put her aunt through surgery. Instead she will be treated with comfort care and returned to the [facility]. She is currently on 4 liters of oxygen and desatting. Past Medical History Cardiovascular: CAD, CHF, HTN Pulmonary: Asthma, Bronchitis, COPD GI: GERD Heme/Onc: No pertinent hx Hepatobiliary: No pertinent hx Psych: Depression Renal/: Chronic renal insuff, Acute renal failure Endocrine: Diabetes Past Surgical History Past Surgical History: No pertinent history Family History Family History: No Significant, Family History Unknown Social History No ALCOHOL: none Drugs: None Lives: Care Home Current Medications Current Medications Current Medications Sodium Chloride 1,000 ml @ 75 mls/hr [id number] IV Last administered on t 07:51; Start 04/14/17 at 18:31 Ondansetron HCl (Zofran) 4 mg PRN Q6HRS PRN IV NAUSEA/VOMITING, 1ST CHOICE; Start 04/14/17 at 18:45 Prochlorperazine Edisylate (Compazine) 10 mg PRN Q6HRS PRN IV NAUSEA/VOMITING, 2ND CHOICE; Start 04/14/17 at 18:45 Prochlorperazine (Compazine) 25 mg PRN Q12HR PRN NC NAUSEA/VOMITING; Start 04/19 at 18:45 Al Hydroxide/Mg Hydroxide (Mylanta Plus Xs) 30 ml PRN Q3HRS PRN PO HEARTBURN / GAS; Start 04/14/17 at 18:45 Calcium Carbonate/ Glycine (Tums) 500 mg PRN Q3HRS PRN PO UPSET STOMACH; Start 04/14/17 at 18:45 Oxycodone HCl (Roxicodone) 5 mg PRN Q3HRS PRN PO BREAKTHROUGH PAIN; Start 04/19 at 18:45 Morphine Sulfate 1 mg PRN Q1HR PRN IV PAIN Last administered on 04/15/17 13: 14; Start 04/14/17 at 18:45 Oxycodone/ Acetaminophen (Percocet 5/325) 1 tab PRN Q4HRS PRN PO MILD PAIN, 2ND CHOICE Last administered on 04/15/17 09:03; Start 04/14/17 at 18:45 Acetaminophen (Tylenol) 650 mg PRN Q6HRS PRN PO Headaches, Temp > 101.5F; Start 04/14/17 at 18:45 Docusate Sodium (Colace) 100 mg BID PO Last administered on 04/15/17 09:03; Start 04/14/17 at 21:00 Magnesium Hydroxide (Milk Of Magnesia) 2,400 mg PRN Q12HR PRN PO CONSTIPATION; Start 04/14/17 at 18:45 Bisacodyl (Dulcolax Supp) 10 mg PRN DAILY PRN NC CONSTIPATION; Start 04/14/17 at 18:45 Enoxaparin Sodium (Lovenox 30mg Syringe) 30 mg Q24H SQ ; Start 04/14/17 at 21: 00 Fentanyl Citrate (Fentanyl 2ml Vial) 50 mcg PRN Q2HR PRN IV PAIN Last administered on 04/15/17 00:37; Start 04/14/17 at 18:45 Clotrimazole (Lotrimin) 1 kizzy BID TP Last administered on 04/15/17 09:00; Start 04/15/17 at 09:00 Furosemide (Lasix) 20 mg DAILY PO Last administered on 04/15/17 09:03; Start 04/15/17 at 09:00 Gabapentin (Neurontin) 100 mg TID PO Last administered on 04/15/17 09:03; Start 04/14/17 at 21:00 Acetaminophen/ Hydrocodone Bitart (Lortab 5/325) 1 tab PRN TID PRN PO PAIN; Start 04/14/17 at 18:45 Citalopram Hydrobromide (CeleXA) 20 mg DAILY PO Last administered on 09:03; Start 04/15/17 at 09:00 Nystatin 5 ml [id number] Last administered on 04/15/17 09:02; Start at 21:00 Nystatin (Nystop) 1 kizzy BID TP Last administered on 04/15/17 09:00; Start at 21:00 Ergocalciferol (Vitamin D2) 50,000 unit WEEKLY PO ; Start 04/15/17 at 12:00 Active Scripts Active Reported Levsin (Hyoscyamine Sulfate) 0.125 Mg Tablet 1 Tab PO Q2HR Duoneb 0.5-3(2.5) Mg/3 Ml (Albuterol/Ipratropium) 3 Ml Ampul.neb 3 Ml NEB Q6HRS Zinc Sulfate 220 Mg Tablet 220 Mg PO DAILY Xanax (Alprazolam) 0.25 Mg Tablet 1 Tab PO Q8HRS Sps (Sodium Polystyrene Sulfonate) 15 Gm/60 Ml Oral.susp 30 Ml PO BID Refresh Optive Eye Drops (Carboxymethylcellulos/Glycerin) 15 Ml Drops 1 Drop EACHEYE BID Nystatin 100,000 Unit/1 Ml Oral.susp 5 Ml PO QID Hydrocodone-Apap 5-325 (Hydrocodone Bit/Acetaminophen) 1 Each Tablet 1 Tab PO TID PRN Clotrimazole 15 Gm Cream..g. 1 Kizzy TP BID Escitalopram Oxalate 10 Mg Tablet 1 Tab PO DAILY Gabapentin 100 Mg Capsule 100 Mg PO TID Furosemide 20 Mg Tablet 1 Tab PO DAILY Tylenol (Acetaminophen) 325 Mg Tablet 1 Tab PO PRN Q4HRS Allergies Allergies: Coded Allergies: I S O L A T I O N *CONTACT* (Verified Allergy, Unknown, 07/28/16) +MRSA nares 07/25/2016 No Known Medication Allergies (Verified Allergy, Unknown, 07/28/16) ROS Review of System unable to obtain due to dementia Physical Exam Physical Exam not performed Vitals VITALS Vital Signs Date Time Temp Pulse Resp B/P (MAP) Pulse Ox O2 Delivery O2 Flow Rate FiO2 04/15/17 13:14 Nasal Cannula 3.0 04/15/17 11:25 100.0 77 20 108/51 (70) 94 100.0 Labs Labs Laboratory Tests Test 04/14/17 20:59 04/15/17 04:15 04/15/17 04:25 04/15/17 05:00 Nasal Screen MRSA (PCR) Negative (Negative) Sodium Level 141 mmol/L (136-145) Potassium Level 4.3 mmol/L (3.5-5.1) Chloride Level 104 mmol/L (98-107) Carbon Dioxide Level 28 mmol/L (21-32) Anion Gap 9 (6-14) Blood Urea Nitrogen 25 mg/dL (7-20) Creatinine 2.0 mg/dL (0.6-1.0) Estimated GFR (Cockcroft-Gault) 23.6 Glucose Level 111 mg/dL (70-99) Calcium Level 7.9 mg/dL (8.5-10.1) White Blood Count 8.3 x10^3/uL (4.0-11.0) Red Blood Count 3.10 x10^6/uL (3.50-5.40) Hemoglobin 10.1 g/dL (12.0-15.5) Hematocrit 31.6 % (36.0-47.0) Mean Corpuscular Volume 102 fL (79-100) Mean Corpuscular Hemoglobin 33 pg (25-35) Mean Corpuscular Hemoglobin Concent 32 g/dL (31-37) Red Cell Distribution Width 13.1 % (11.5-14.5) Platelet Count 154 x10^3/uL (140-400) Neutrophils (%) (Auto) 67 % (31-73) Lymphocytes (%) (Auto) 21 % (24-48) Monocytes (%) (Auto) 11 % (0-9) Eosinophils (%) (Auto) 0 % (0-3) Basophils (%) (Auto) 0 % (0-3) Neutrophils # (Auto) 5.5 x10^3uL (1.8-7.7) Lymphocytes # (Auto) 1.8 x10^3/uL (1.0-4.8) Monocytes # (Auto) 0.9 x10^3/uL (0.0-1.1) Eosinophils # (Auto) 0.0 x10^3/uL (0.0-0.7) Basophils # (Auto) 0.0 x10^3/uL (0.0-0.2) Prothrombin Time 14.5 SEC (11.7-14.0) Prothromb Time International Ratio 1.2 (0.8-1.1) 25-Hydroxy Vitamin D Total 24.4 ng/mL (30-100) Test 04/15/17 07:41 04/15/17 11:38 Glucose (Fingerstick) 110 mg/dL (70-99) 103 mg/dL (70-99) Laboratory Tests Test 04/14/17 20:59 04/15/17 04:15 04/15/17 04:25 04/15/17 05:00 Nasal Screen MRSA (PCR) Negative (Negative) Sodium Level 141 mmol/L (136-145) Potassium Level 4.3 mmol/L (3.5-5.1) Chloride Level 104 mmol/L (98-107) Carbon Dioxide Level 28 mmol/L (21-32) Anion Gap 9 (6-14) Blood Urea Nitrogen 25 mg/dL (7-20) Creatinine 2.0 mg/dL (0.6-1.0) Estimated GFR (Cockcroft-Gault) 23.6 Glucose Level 111 mg/dL (70-99) Calcium Level 7.9 mg/dL (8.5-10.1) White Blood Count 8.3 x10^3/uL (4.0-11.0) Red Blood Count 3.10 x10^6/uL (3.50-5.40) Hemoglobin 10.1 g/dL (12.0-15.5) Hematocrit 31.6 % (36.0-47.0) Mean Corpuscular Volume 102 fL (79-100) Mean Corpuscular Hemoglobin 33 pg (25-35) Mean Corpuscular Hemoglobin Concent 32 g/dL (31-37) Red Cell Distribution Width 13.1 % (11.5-14.5) Platelet Count 154 x10^3/uL (140-400) Neutrophils (%) (Auto) 67 % (31-73) Lymphocytes (%) (Auto) 21 % (24-48) Monocytes (%) (Auto) 11 % (0-9) Eosinophils (%) (Auto) 0 % (0-3) Basophils (%) (Auto) 0 % (0-3) Neutrophils # (Auto) 5.5 x10^3uL (1.8-7.7) Lymphocytes # (Auto) 1.8 x10^3/uL (1.0-4.8) Monocytes # (Auto) 0.9 x10^3/uL (0.0-1.1) Eosinophils # (Auto) 0.0 x10^3/uL (0.0-0.7) Basophils # (Auto) 0.0 x10^3/uL (0.0-0.2) Prothrombin Time 14.5 SEC (11.7-14.0) Prothromb Time International Ratio 1.2 (0.8-1.1) 25-Hydroxy Vitamin D Total 24.4 ng/mL (30-100) Test 04/15/17 07:41 04/15/17 11:38 Glucose (Fingerstick) 110 mg/dL (70-99) 103 mg/dL (70-99) Images Images xrays of the pelvis and left femur reveal a significantly displaced left femoral neck fracture. Assessment/Plan Assessment/Plan The patient is an 86 year old female with multiple medical problems and a displaced left femoral neck fracture The family and DPOA have elected to refrain from surgery. The patient will be treated conservatively with comfort care. Thank you for allowing me to participate in the care of your patient. Please call my office [phone] with any questions. JADE SHERMAN MD Apr 15, 2017 20:31
== END 2017-04-15 15:00 | disposition home or self-care (01) | DRG 535 ==
LOC: 4 NORTH 18:00
PROVIDERS: ADMIT Internal Medicine; ATTEND Internal Medicine
DX: S72.002A Fracture of unspecified part of neck of left femur, initial encounter for closed fracture (principal); N18.6 End stage renal disease; I13.2 Hypertensive heart and chronic kidney disease with heart failure and with stage 5 chronic kidney disease, or end stage renal disease; E11.22 Type 2 diabetes mellitus with diabetic chronic kidney disease; B37.9 Candidiasis, unspecified; F03.90 Unspecified dementia, unspecified severity, without behavioral disturbance, psychotic disturbance, mood disturbance, and anxiety; F32.9 Major depressive disorder, single episode, unspecified; D63.1 Anemia in chronic kidney disease; I25.10 Atherosclerotic heart disease of native coronary artery without angina pectoris; I50.9 Heart failure, unspecified; J44.9 Chronic obstructive pulmonary disease, unspecified; F41.9 Anxiety disorder, unspecified; G89.29 Other chronic pain; H54.8 Legal blindness, as defined in USA; K21.9 Gastro-esophageal reflux disease without esophagitis; W18.39XA Other fall on same level, initial encounter; K59.00 Constipation, unspecified; W18.30XA Fall on same level, unspecified, initial encounter; Z51.5 Encounter for palliative care; Z66 Do not resuscitate; Z74.01 Bed confinement status; Y93.89 Activity, other specified; Y92.128 Other place in nursing home as the place of occurrence of the external cause; Y99.8 Other external cause status
CPT/HCPCS: 36415; 80048; 82306; 82962; 85025; 85610; 87641; J2270; J3010